=== PATIENT | male | born 1950 | race Caucasian/White ===

== ENCOUNTER 2018-05-07 11:05 | Inpatient (IN) | payer MEDICARE, MEDICAID ==
[2018-05-07] MEDS ORDERED: Sodium Chloride 0.9% 10 ML Syringe FLUSH PRN (11:10)
[2018-05-07] MEDS ORDERED: Sodium Chloride 0.9% 1,000 ML IV SCH (11:30)
--- NOTE | 2018-05-07 15:07 | PCM.HP ---
H&P History of Present Illness - General Date of Service: 05/07/18 Admit Problem/Dx: Admission Diagnosis/Problem Admission Diagnosis/Problem Urinary tract infection HTN, uncontrolled Headache Visual blurring Source of Information: Patient, Family, Old Records, Provider, RN Notes Reviewed (Home Health RN) History Limitations: Reports: No Limitations - History of Present Illness Initial Comments - Free Text/Narative: Patient has been experiencing increasingly frequent and symptomatic UTI's (his symptoms have always been headache and a general sense of malaise), along with headache, extreme fatigue and visual blurring. The last few weeks his blood pressures have been increasingly difficult to try to control, and even with multiple medication adjustments BP has remained out of desired range. Onset of Symptoms: Reports: Gradual Duration of Symptoms: Reports: Week(s):, Getting Worse Location: Reports: Head (headache and visual blurring ), Generalized (extreme fatigue) Quality: Reports: Ache (headache) Severity: Moderate Improves with: Reports: Medication (regarding the BP) Worsens with: Reports: None Context: Reports: Other (quadriplegia, neurogenic bladder) Associated Symptoms: Reports: Headaches, Malaise, Weakness - Related Data Allergies/Adverse Reactions: Allergies Allergy/AdvReac Type Severity Reaction Status Date / Time azithromycin [From Zithromax] Allergy Hives Verified 10/06/15 16:19 bisacodyl Allergy Hives Verified 10/06/15 16:19 [From Dulcolax (bisacodyl)] Home Medications: Home Meds Ascorbic Acid [Vitamin C] 1,000 mg PO QID 04/21/14 [History] Gabapentin 100 mg PO BEDTIME 04/21/14 [History] LORazepam [Ativan] 1 mg PO BEDTIME PRN 04/21/14 [History] Methenamine Hippurate 1 gm PO BID 04/21/14 [History] Sodium Chloride 1,000 mg PO QID 04/21/14 [History] Triamcinolone Acetonide [Triamcinolone Acetonide 0.5%] 1 applic TOP BID PRN 12/30 [History] metFORMIN [Glucophage] 850 mg PO BID 04/21/14 [History] Acetaminophen 650 mg PO Q6HR PRN 10/13/14 [History] Famotidine [Pepcid] 20 mg PO 1700 12/11/14 [History] Multivitamin [Multivitamins] 1 tab PO DAILY 12/11/14 [History] Baclofen [Baclofen] 20 mg PO QID 12/30/14 [Rx] Calcium Carbonate [Tums] 2 tab PO ASDIRECTED PRN 01/13/15 [History] [place] Tar [Thera-Gel] 1 applic TOP Q48H 01/13/15 [History] Furosemide [Lasix] 20 mg PO DAILY #30 tab 01/17/15 [Rx] Potassium Chloride [Klor-Con 10] 20 meq PO TID@0800,1200,1800 tab.er 01/18/15 [ Rx] Nystatin [Nystatin Crm] 1 applic TOP TID PRN 09/29/15 [History] Carbamide Peroxide [Debrox 6.5% Otic Soln] 1 ml EARLF BID@0800,2000 bottle [Rx] Heparin Sodium [Heparin Lock Flush] 500 units FLUSH ASDIRECTED PRN #60 syringe 10/03/15 [Rx] Polyvinyl Alcohol [LiquiTears 1.4% Ophth Soln] 3 drop EYEBOTH Q1H PRN #1 bottle 10/03/15 [Rx] Sodium Chloride 0.9% [Saline Flush] 10 ml FLUSH BID syringe 10/03/15 [Rx] Lisinopril [Prinivil] 10 mg PO Q12HR #60 tablet 10/13/15 [Rx] Midodrine 5 mg PO DAILY@1200 #30 tablet 10/13/15 [Rx] Temazepam 15 mg PO BEDTIME PRN #30 capsule 10/13/15 [Rx] Past Medical History HEENT History: Reports: None Cardiovascular History: Reports: Hypertension Respiratory History: Reports: None Gastrointestinal History: Reports: Other (See Below) Other Gastrointestinal History: manual bowel removal qod Genitourinary History: Reports: Neurogenic Bladder Musculoskeletal History: Reports: Other (See Below) Other Musculoskeletal History: quadraplegic- see MD notes Neurological History: Reports: Other (See Below) Other Neuro History: quadraplegic see MD notes Psychiatric History: Reports: None Endocrine/Metabolic History: Reports: Diabetes, Type II Hematologic History: Reports: Idiopathic Thrombocytopenia Dermatologic History: Reports: Other (See Below) Other Dermatologic History: multiple problems with dry skin/rashes - Infectious Disease History Infectious Disease History: Reports: C-Difficile, MRSA Social & Family History - Family History Family Medical History: Noncontributory - Tobacco Use Smoking Status *Q: Never Smoker Tobacco Use Within Last Twelve Months: No - Caffeine Use Caffeine Use: Reports: None - Alcohol Use Alcohol Use History: No - Recreational Drug Use Recreational Drug Use: No - Living Situation & Occupation Living situation: Reports: with Spouse Occupation: Disabled H&P Review of Systems - Review of Systems: Review Of Systems: See Below General: Reports: Fatigue HEENT: Reports: Headaches, Visual Changes (blurring, R > L) Pulmonary: Reports: No Symptoms Cardiovascular: Reports: No Symptoms Gastrointestinal: Reports: No Symptoms Genitourinary: Reports: Other (excess granulation tissue at the suprapubic catheter insertion site) Musculoskeletal: Reports: Shoulder Pain (c/o increasingly constant L shoulder pain) Skin: Reports: Wound (h/o multiple pressure ulcers), Other (chronic skin changes from immobility) Psychiatric: Reports: No Symptoms Neurological: Reports: No Symptoms Hematologic/Lymphatic: Reports: No Symptoms Immunologic: Reports: No Symptoms Exam - Exam Exam: See Below - Exam Quality Assessment: Urinary Catheter (suprapubic) General: Alert, Oriented, 4 HEENT: EOMI, Hearing Intact, Mucosa Moist & Kiana, Pupils Reactive Neck: Supple (for patient), Trachea Midline, Other (no tenderness to palpation) Lungs: Clear to Auscultation, Normal Respiratory Effort Cardiovascular: Regular Rate, Regular Rhythm, Systolic Murmur GI/Abdominal Exam: Normal Bowel Sounds, Soft (Male) Exam: Other (no drainage at tip of penis (recent culture MRSA+ and treated with topical Gent); suprapubic catheter insertion site does have the excess granulation tissue, draining urine to gravity) Rectal (Males) Exam: Deferred Back Exam: Other (quadriplegic at the C5-6 level) Extremities: Other (extreme muscle wasting in LE, some limited use of UE R > L) Skin: Warm, Dry, Intact, Other (skin is fragile but no current open areas or ulcerations. Areas of dermatitis on BLE.) Neurological: Cranial Nerves Intact, Other (quadriplegia with some limited use of BUE, R > L) Neuro Extensive - Mental Status: Alert, Oriented x3, Normal Mood/Affect, Normal Cognition, Memory Intact Neuro Extensive - Motor, Sensory, Reflexes: Other (Quadriplegia since February 09, 1980) Psychiatric: Alert, Normal Affect, Normal Mood - Patient Data Result Diagrams: 05/07/18 17:30 05/07/18 17:30 - Problem List (1) Murmur, cardiac SNOMED Code(s): 54099603 ICD Code: R01.1 - CARDIAC MURMUR, UNSPECIFIED Status: Acute Priority: Medium Current Visit: Yes Onset Date: Unknown Problem Details: Not previously documented (2) Fatigue SNOMED Code(s): 42411328 ICD Code: R53.83 - OTHER FATIGUE Status: Acute Priority: Medium Current Visit: Yes Problem Details: Extreme fatigue past couple months. Qualifiers: Fatigue type: chronic, unspecified Qualified Code(s): R53.82 - Chronic fatigue, unspecified (3) Headache SNOMED Code(s): 83759064 ICD Code: R51 - HEADACHE Status: Chronic Priority: Medium Current Visit : Yes Onset Date: Unknown Problem Details: h/o BORJA associated with recurrent UTI's but worsening. 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 Problem List Initiated/Reviewed/Updated: Yes Orders Last 24hrs: Active Orders 24 hr Category Date Time Status Patient Status [ADT] Routine ADT 05/07/18 11:10 Active Communication Order [RC] PER UNIT ROUTINE Care 05/07/18 12:44 Active Communication Order [RC] PER UNIT ROUTINE Care 05/07/18 12:50 Active Communication Order [RC] ROUTINE Care 05/07/18 11:17 Active Communication Order [RC] ROUTINE Care 05/07/18 13:00 Active Height and Weight [RC] UPON Care 05/07/18 11:10 Active Intake and Output [RC] QSHIFT Care 05/07/18 11:13 Active Oxygen Therapy [RC] PRN Care 05/07/18 11:10 Active Peripheral IV Care [RC] . DIRECTED Care 05/07/18 11:16 Active VTE/DVT Education [RC] PER UNIT ROUTINE Care 05/07/18 11:10 Active Vital Signs [RC] Q4H Care 05/07/18 11:10 Active Consult to Pharmacy [CONS] Routine Cons 05/07/18 12:47 Active PT Evaluation and Treatment [CONS] Routine Cons 05/07/18 12:48 Active Regular Diet [DIET] Diet 05/07/18 Dinner Active Abdomen Pelvis w Cont [CT] Routine Exams 05/07/18 13:13 Ordered Chest 2V [CR] Routine Exams 05/07/18 13:31 Ordered Chest w Cont [CT] Routine Exams 05/07/18 13:17 Ordered Head wo Cont [CT] Routine Exams 05/07/18 13:11 Ordered C-REACTIVE PROTEIN [CHEM] AM Lab 05/08/18 05:11 Ordered C-REACTIVE PROTEIN [CHEM] AM Lab 05/09/18 05:11 Ordered C-REACTIVE PROTEIN [CHEM] AM Lab 05/10/18 05:11 Ordered C-REACTIVE PROTEIN [CHEM] Routine Lab 05/07/18 11:10 Ordered CBC WITH AUTO DIFF [HEME] AM Lab 05/08/18 05:11 Ordered CBC WITH AUTO DIFF [HEME] AM Lab 05/09/18 05:11 Ordered CBC WITH AUTO DIFF [HEME] AM Lab 05/10/18 05:11 Ordered CBC WITH AUTO DIFF [HEME] Routine Lab 05/07/18 11:10 Ordered COMPREHENSIVE METABOLIC PN,CMP [CHEM] AM Lab 05/08/18 05:11 Ordered COMPREHENSIVE METABOLIC PN,CMP [CHEM] AM Lab 05/09/18 05:11 Ordered COMPREHENSIVE METABOLIC PN,CMP [CHEM] AM Lab 05/10/18 05:11 Ordered COMPREHENSIVE METABOLIC PN,CMP [CHEM] Routine Lab 05/07/18 11:10 Ordered CULTURE BLOOD [BC] Stat Lab 05/07/18 11:16 Ordered CULTURE BLOOD [BC] Stat Lab 05/07/18 11:16 Ordered MAGNESIUM [CHEM] Routine Lab 05/07/18 11:10 Ordered Sodium Chloride 0.9% [Normal Saline] 1,000 ml Med 05/07/18 11:30 Pending IV ASDIRECTED Sodium Chloride 0.9% [Saline Flush] Med 05/07/18 11:10 Pending 10 ml FLUSH ASDIRECTED PRN Vancomycin 1 gm Med 05/07/18 12:45 Pending Sodium Chloride 0.9% [Normal Saline] 250 ml IV Q12H Vancomycin Pharmacy to Dose [Pharmacy to Dose - Med 05/07/18 15:00 Pending Vancomycin] 1 dose .XX ASDIRECTED Air Mattress [Pressure Reduction Mattress] [OM.PC] Oth 05/07/18 11:16 Ordered Routine Antiembolic Hose [OM.PC] Per Unit Routine Ot 05/07/18 11:14 Ordered Blood Culture x2 Reflex Set [OM.PC] Stat Ot 05/07/18 11:10 Ordered Peripheral IV Insertion Adult [OM.PC] Routine Oth 05/07/18 11:10 Ordered Resuscitation Status Routine Resus Stat 05/07/18 11:10 Ordered Medication Orders Sodium Chloride (Normal Saline) 1,000 mls @ 100 mls/hr IV ASDIRECTED LAURIE Vancomycin HCl 1 gm/ Sodium (Chloride) 250 mls @ 165 mls/hr IV Q12H LAURIE Sodium Chloride (Saline Flush) 10 ml FLUSH ASDIRECTED PRN PRN Reason: Keep Vein Open Vancomycin HCl (Pharmacy To Dose - Vancomycin) 1 dose .XX ASDIRECTED [facility] Assessment/Plan Comment:: 05-07-18 Chidi Nagy PA-C Admitting to IP status with increasing concern for recurrent UTI, headache, extreme fatigue, blurred vision and increasingly difficult to control HTN. Most recent urine culture positive for Enterococcus species, sensitive to Vancomycin. Patient and his are aware of the risk of C. diff. posed by antibiotic therapy but the decision has been made to treat because his headaches and general malaise and sense of well-being are not tolerable (these have always been his symptoms of UTI in the past). Antihypertensive medications have been repeatedly adjusted over the last couple weeks without complete success. Vancomycin 1 gram Q12H ordered for the UTI. Will run NS at 100 ml/h. Patient has a long h/o hyponatremia. All labs will be followed. TSH ordered for the am d/t this extreme fatigue. CT scans of the head, chest and abdomen/pelvis ordered to rule out anything like a pheochromocytoma or other tumor. Echocardiogram and bilateral carotid ultrasound ordered for tomorrow morning. PT consult ordered to evaluate and treat for skin protection. Dr. Yahaira Israel was consulted prior to this admission. This very complex patient does require IP admission, with possible SWB stay after he can leave acute status.
[2018-05-07] MEDS ORDERED: Iopamidol 612 MG/ML 100 ML Bottle IVPUSH ONE (16:28)
[2018-05-07 17:52] LABS: CHLORIDE,CL 97 mmol/L (98-107); SODIUM,NA 136 mmol/L (136-145)
[2018-05-07] MEDS: Sodium Chloride 0.9% 1,000 ML IV SCH (18:30)
[2018-05-07] MEDS ORDERED: LORazepam 1 MG Tab PO PRN (20:27)
[2018-05-07] MEDS ORDERED: Nystatin Crm 30 GM Tube TOP PRN (20:27)
[2018-05-07] MEDS ORDERED: Acetaminophen 325 MG Tab PO PRN (20:27)
[2018-05-07] MEDS: Magnesium Oxide 400 MG Tab PO SCH (20:27)
[2018-05-07] MEDS ORDERED: Temazepam 15 MG Cap PO PRN (20:27)
[2018-05-07] MEDS ORDERED: Triamcinolone Acetonide 0.5% Crm 15 GM Tube TOP PRN (20:27)
[2018-05-07] MEDS ORDERED: Coal Tar Shampoo 251 ML Bottle TOP PRN (20:27)
[2018-05-07] MEDS ORDERED: Polyvinyl Alcohol 1.4% Ophth Soln 15 ML Bottle EYEBOTH PRN (20:27)
[2018-05-07] MEDS: Baclofen 10 MG Tab PO SCH (22:00)
[2018-05-07] MEDS: guanFACINE 1 MG Tab PO SCH (22:01)
[2018-05-07] MEDS: Lisinopril 20 MG Tab PO SCH (22:01)
[2018-05-07] MEDS: Gabapentin 100 MG Cap PO SCH (22:02)
[2018-05-07] MEDS: Ascorbic Acid 500 MG Tab PO SCH (22:02)
[2018-05-07] MEDS: Calcium Polycarbophil 625 MG Tab PO SCH (22:02)
[2018-05-07] MEDS: Gentamicin 0.1% Crm 15 GM Tube TOP SCH (22:03)
[2018-05-08] MEDS: Docusate Sodium 100 MG Cap PO SCH ×2 (07:40→17:45)
[2018-05-08] MEDS: Gentamicin 0.1% Crm 15 GM Tube TOP SCH ×2 (07:41→20:02)
[2018-05-08] MEDS: Multivitamin Tab PO SCH (07:41)
[2018-05-08] MEDS: Potassium Chloride 10 MEQ Tab.ER PO SCH ×3 (07:41→17:45)
[2018-05-08] MEDS: Furosemide 20 MG Tab PO SCH ×3 (07:42→17:46)
[2018-05-08] MEDS: Baclofen 10 MG Tab PO SCH ×4 (07:42→20:00)
[2018-05-08] MEDS: Sodium Chloride 1 GM Tab PO SCH ×3 (07:51→17:45)
[2018-05-08] MEDS: Ascorbic Acid 500 MG Tab PO SCH ×4 (07:52→20:01)
[2018-05-08 07:53] LABS: CHLORIDE,CL 99 mmol/L (98-107); SODIUM,NA 135 mmol/L (136-145)
[2018-05-08] MEDS: Magnesium Oxide 400 MG Tab PO SCH ×2 (07:54→17:46)
[2018-05-08] MEDS ORDERED: LUTEIN 20 MG PO SCH (08:00)
[2018-05-08] MEDS ORDERED: Pantoprazole 40 MG Tab.CR PO SCH (08:00)
[2018-05-08] MEDS: Sodium Chloride 0.9% 1,000 ML IV SCH ×2 (08:50→19:55)
[2018-05-08] MEDS: guanFACINE 1 MG Tab PO SCH ×2 (10:25→20:01)
[2018-05-08] MEDS: Lisinopril 20 MG Tab PO SCH ×2 (10:25→20:01)
[2018-05-08] MEDS ORDERED: Aluminum Hydroxide/Magnesium Hydroxide/Simethicone Susp 30 ML Cup PO PRN (16:30)
[2018-05-08] MEDS: Calcium Carbonate 750 MG Tab.Chew PO PRN (17:47)
[2018-05-08] MEDS: Famotidine 20 MG Tab PO SCH (17:47)
[2018-05-08] MEDS: Gabapentin 100 MG Cap PO SCH (20:00)
[2018-05-08] MEDS: Calcium Polycarbophil 625 MG Tab PO SCH (20:00)
--- NOTE | 2018-05-08 23:01 | PCM.PN ---
- General Info Date of Service: 05/08/18 Admission Dx/Problem (Free Text): Admission Diagnosis/Problem Admission Diagnosis/Problem Urinary tract infection HTN, uncontrolled Headache Visual blurring Functional Status: Reports: Tolerating Diet - Review of Systems HEENT: Reports: Headaches, Other (decreased vision right eye) Pulmonary: Reports: No Symptoms Cardiovascular: Reports: No Symptoms Gastrointestinal: Reports: No Symptoms Genitourinary: Reports: Retention Musculoskeletal: Reports: Neck Pain, Shoulder Pain (left), Other (left costochondral pain) Skin: Reports: Dryness, Other (redness right lower extremity) Neurological: Reports: Pre-Existing Deficit Psychiatric: Reports: No Symptoms - Patient Data Vitals - Most Recent: Last Vital Signs Temp 97.9 F 05/08/18 19:05 Pulse 59 L 05/08/18 19:05 Resp 12 05/08/18 15:34 BP 167/78 H 05/08/18 20:01 Pulse Ox 96 05/08/18 19:05 Weight - Most Recent: 233 lb 8 oz I&O - Last 24 Hours: Intake & Output 05/08/18 05/08/18 05/08/18 06:59 14:59 22:59 Intake Total 1890 2909 Output Total 1000 1650 1500 Balance -1149 652 [id number] Lab Results Last 24 Hours: Laboratory Results - last 24 hr 05/08/18 05/08/18 05/08/18 Range/Units 06:45 06:45 06:45 WBC 4.5 (4.0-10.2) K/uL RBC 4.18 L (4.33-5.41) M/uL Hgb 12.0 L (13.1-16.8) g/dL Hct 35.4 L (39.0-49.0) % MCV 84.7 (84.0-98.0) fL MCH 28.7 (28.2-33.3) pg MCHC 33.9 (31.7-36.0) g/dL RDW 17.7 H (11.2-14.1) % Plt Count 50 L (150-350) K/uL Neut % (Auto) 75.1 (45.0-80.0) % Lymph % (Auto) 10.5 (10.0-50.0) % [place] % (Auto) 10.9 (2.0-14.0) % Eos % (Auto) 3.3 (0.0-5.0) % Baso % (Auto) 0.2 (0.0-2.0) % Neut # (Auto) 3.37 (1.40-7.00) K/uL Lymph # (Auto) 0.47 L (0.50-3.50) K/uL [place] # (Auto) 0.49 (0.00-1.00) K/uL Eos # (Auto) 0.15 (0.00-0.50) K/uL Baso # (Auto) 0.01 (0.00-0.20) K/uL PT 11.0 (9.8-11.7) SEC INR 1.0 APTT 27.9 (22.1-29.8) SEC Sodium 135 L (136-145) mmol/L Potassium 4.2 (3.5-5.1) mmol/L Chloride 99 (98-107) mmol/L Carbon Dioxide 28.7 (21.0-32.0) mmol/L BUN 15 (7-18) mg/dL Creatinine 0.24 L (0.51-1.17) mg/dL Est Cr Clr Drug Dosing 371.71 mL/min Estimated GFR (MDRD) > 60 mL/min Glucose 191 H (74-106) mg/dL POC Glucose (65-110) mg/dl Hemoglobin A1c (4.3-5.7) % Lactic Acid (0.4-2.0) mmol/L Calcium 8.0 L (8.5-10.1) mg/dL Total Bilirubin 0.7 (0.2-1.0) mg/dL AST 20 (15-37) U/L ALT 39 (12-78) U/L Alkaline Phosphatase 68 (46-116) IU/L Creatine Kinase 19 L (26-308) U/L C-Reactive Protein 1.9 H (<=0.9) mg/dL Total Protein 7.1 (6.4-8.2) g/dL Albumin 3.1 L (3.4-5.0) g/dL TSH, Ultra Sensitive 1.887 (0.358-3.740) mIU/mL 05/08/18 05/08/18 05/08/18 Range/Units 06:45 06:45 07:33 WBC (4.0-10.2) K/uL RBC (4.33-5.41) M/uL Hgb (13.1-16.8) g/dL Hct (39.0-49.0) % MCV (84.0-98.0) fL MCH (28.2-33.3) pg MCHC (31.7-36.0) g/dL RDW (11.2-14.1) % Plt Count (150-350) K/uL Neut % (Auto) (45.0-80.0) % Lymph % (Auto) (10.0-50.0) % [place] % (Auto) (2.0-14.0) % Eos % (Auto) (0.0-5.0) % Baso % (Auto) (0.0-2.0) % Neut # (Auto) (1.40-7.00) K/uL Lymph # (Auto) (0.50-3.50) K/uL [place] # (Auto) (0.00-1.00) K/uL Eos # (Auto) (0.00-0.50) K/uL Baso # (Auto) (0.00-0.20) K/uL PT (9.8-11.7) SEC INR APTT (22.1-29.8) SEC Sodium (136-145) mmol/L Potassium (3.5-5.1) mmol/L Chloride (98-107) mmol/L Carbon Dioxide (21.0-32.0) mmol/L BUN (7-18) mg/dL Creatinine (0.51-1.17) mg/dL Est Cr Clr Drug Dosing mL/min Estimated GFR (MDRD) mL/min Glucose (74-106) mg/dL POC Glucose 190 H (65-110) mg/dl Hemoglobin A1c 5.8 H (4.3-5.7) % Lactic Acid 2.0 (0.4-2.0) mmol/L Calcium (8.5-10.1) mg/dL Total Bilirubin (0.2-1.0) mg/dL AST (15-37) U/L ALT (12-78) U/L Alkaline Phosphatase (46-116) IU/L Creatine Kinase (26-308) U/L C-Reactive Protein (<=0.9) mg/dL Total Protein (6.4-8.2) g/dL Albumin (3.4-5.0) g/dL TSH, Ultra Sensitive (0.358-3.740) mIU/mL Sadi Results Last 24 Hours: Microbiology 05/07/18 18:07 Aerobic Blood Culture - Preliminary Blood - Venous - Lab Draw NO GROWTH AFTER 1 DAY Anaerobic Blood Culture - Preliminary NO GROWTH AFTER 1 DAY 05/07/18 17:30 Aerobic Blood Culture - Preliminary Blood - Venous NO GROWTH AFTER 1 DAY Anaerobic Blood Culture - Preliminary NO GROWTH AFTER 1 DAY Med Orders - Current: Current Medications Acetaminophen (Tylenol) 650 mg PO Q6HR PRN PRN Reason: Pain Al Hydroxide/Mg Hydroxide (Mag-Al Plus) 30 ml PO Q4H PRN PRN Reason: GI upset Artificial Tears (Liquitears 1.4% Ophth Soln) 0 ml EYEBOTH Q1H PRN PRN Reason: Dry Eyes Ascorbic Acid (Vitamin C) 1,000 mg PO QID [facility] Last Admin: 05/08/18 20:01 Dose: 1,000 mg Baclofen (Lioresal) 20 mg PO QID [facility] Last Admin: 05/08/18 20:00 Dose: 20 mg Calcium Carbonate/Glycine (Tums Extra Strength) 750 mg PO Q2HR PRN PRN Reason: Indigestion Last Admin: 05/08/18 17:47 Dose: 750 mg [place] Tar (Thera-Gel) 0 ml TOP ASDIRECTED PRN PRN Reason: dry skin Famotidine (Pepcid) 20 mg PO QPM [facility] Last Admin: 05/08/18 17:47 Dose: 20 mg Furosemide (Lasix) 20 mg PO TID [facility] Last Admin: 05/08/18 17:46 Dose: 20 mg Gabapentin (Neurontin) 100 mg PO BEDTIME [facility] Last Admin: 05/08/18 20:00 Dose: 100 mg Gentamicin Sulfate (Gentamicin 0.1%) 0 gm TOP Q12HR [facility] Last Admin: 05/08/18 20:02 Dose: 1 applic Guanfacine HCl (Guanfacine) 1 mg PO QAM [facility] Last Admin: 05/08/18 10:25 Dose: Not Given Guanfacine HCl (Guanfacine) 2 mg PO BEDTIME [facility] Last Admin: 05/08/18 20:01 Dose: 2 mg Vancomycin HCl 1 gm/ Sodium (Chloride) 250 mls @ 165 mls/hr IV Q12H [facility] Last Admin: 05/08/18 17:43 Dose: 165 mls/hr Sodium Chloride (Normal Saline) 1,000 mls @ 100 mls/hr IV ASDIRECTED [facility] Last Admin: 05/08/18 19:55 Dose: 100 mls/hr Lisinopril (Prinivil) 20 mg PO Q12HR [facility] Last Admin: 05/08/18 20:01 Dose: 20 mg Lorazepam (Ativan) 1 mg PO BEDTIME PRN PRN Reason: Insomnia Metformin HCl (Glucophage) 850 mg PO BIDMEALS [facility] Multivitamins/Minerals/Vitamin C (Tab-A-Sara) 1 tab PO DAILY [facility] Last Admin: 05/08/18 07:41 Dose: 1 tab Nystatin (Nystatin Crm) 0 gm TOP TID PRN PRN Reason: Rash Potassium Chloride (Klor-Con 10) 20 meq PO TID@0800,1200,1800 [facility] Last Admin: 05/08/18 17:45 Dose: 20 meq Sodium Chloride (Saline Flush) 10 ml FLUSH ASDIRECTED PRN PRN Reason: Keep Vein Open Last Admin: 05/08/18 10:53 Dose: 10 ml Sodium Chloride (Sodium Chloride) 1 gm PO TID [facility] Last Admin: 05/08/18 17:45 Dose: 1 gm Triamcinolone Acetonide (Triamcinolone Acetonide 0.5%) 0 gm TOP BID PRN PRN Reason: Rash Vancomycin HCl (Pharmacy To Dose - Vancomycin) 1 dose .XX ASDIRECTED [facility] Discontinued Medications Calcium Polycarbophil (Fibercon) 1,250 mg PO BEDTIME [facility] Last Admin: 05/08/18 20:00 Dose: 1,250 mg Docusate Sodium (Colace) 100 mg PO BID [facility] Last Admin: 05/08/18 17:45 Dose: 100 mg Iopamidol (Isovue-300 (61%)) 100 ml IVPUSH ONETIME ONE Stop: 05/07/18 16:29 Last Admin: 05/07/18 19:54 Dose: 100 ml Magnesium Oxide (Magnesium Oxide) 400 mg PO BID [facility] Last Admin: 05/08/18 17:46 Dose: 400 mg Lutein [Lutein] 20 (Mg)) 20 mg PO DAILY [facility] Last Admin: 05/08/18 15:38 Dose: Not Given Pantoprazole Sodium (Protonix) 40 mg PO DAILY [facility] Last Admin: 05/08/18 07:42 Dose: 40 mg Temazepam (Restoril) 15 mg PO BEDTIME PRN PRN Reason: Insomnia - Exam Quality Assessment: Central Line/PICC, Urine Catheter (supra-pubic) General: Alert, Cooperative, No Acute Distress HEENT: Mucous Membr. Moist/[place] Neck: Trachea Midline, No JVD, Other (pain left trapezius) Lungs: Normal Respiratory Effort, Decreased Breath Sounds, Other (pain left costochondral junction) Cardiovascular: Irregular Rhythm GI/Abdominal Exam: Soft, Non-Tender (Male) Exam: Deferred Back Exam: Decreased Range of Motion, Other (pain left scapula) Extremities: No Pedal Edema Skin: Warm, Dry, Intact, Rash Neurological: Other (pre-existing deficit) Psy/Mental Status: Alert, Normal Affect, Normal Mood, Anxious (at times) - Problem List & Annotations (1) Blurred vision SNOMED Code(s): 466718496 Code(s): H53.8 - OTHER VISUAL DISTURBANCES Status: Acute Priority: Medium Current Visit: Yes Onset Date: Unknown Annotation/Comment:: Did have Optometry evaluation in the home which found lb cataracts, and "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 (2) Fatigue SNOMED Code(s): 70590962 Code(s): R53.83 - OTHER FATIGUE Status: Acute Priority: Medium Current Visit: Yes Qualifiers: Fatigue type: chronic, unspecified Qualified Code(s): R53.82 - Chronic fatigue, unspecified Annotation/Comment:: Extreme fatigue past couple months. (3) Murmur, cardiac SNOMED Code(s): 37857015 Code(s): R01.1 - CARDIAC MURMUR, UNSPECIFIED Status: Acute Priority: Medium Current Visit: Yes Onset Date: Unknown Annotation/Comment:: Not previously documented (4) Headache SNOMED Code(s): 21855194 Code(s): R51 - HEADACHE Status: Chronic Priority: Medium Current Visit : Yes Onset Date: Unknown Qualifiers: Headache type: other headache syndrome Qualified Code(s): G44.89 - Other headache syndrome Annotation/Comment:: h/o BORJA associated with recurrent UTI's but worsening. (5) Anemia SNOMED Code(s): 936964016 Code(s): D64.9 - ANEMIA, UNSPECIFIED Status: Acute Priority: Medium Current Visit: No (6) Candidiasis SNOMED Code(s): 02556094 Code(s): B37.9 - CANDIDIASIS, UNSPECIFIED Status: Acute Priority: Medium Current Visit: No (7) Constipation SNOMED Code(s): 52955113 Code(s): K59.00 - CONSTIPATION, UNSPECIFIED Status: Acute Current Visit: No (8) Dermatitis SNOMED Code(s): 58655510 Code(s): L30.9 - DERMATITIS, UNSPECIFIED Status: Acute Priority: Medium Current Visit: No (9) Edema extremities SNOMED Code(s): 088752198 Code(s): R60.0 - LOCALIZED EDEMA Status: Acute Current Visit: No (10) UTI (urinary tract infection) SNOMED Code(s): 05819926 Code(s): N39.0 - URINARY TRACT INFECTION, SITE NOT SPECIFIED Status: Acute Priority: High Current Visit: No Qualifiers: Urinary tract infection type: catheter-associated UTI Encounter type: subsequent encounter (11) Acquired thrombocytopenia SNOMED Code(s): 67257907 Code(s): D69.59 - OTHER SECONDARY THROMBOCYTOPENIA Status: Chronic Priority: Medium Current Visit: No (12) Diabetes mellitus type 2 SNOMED Code(s): 84944739 Code(s): E11.9 - TYPE 2 DIABETES MELLITUS WITHOUT COMPLICATIONS Status: Chronic Priority: Medium Current Visit: No (13) HTN, Secondary hypertension SNOMED Code(s): 88296404 Code(s): I15.9 - SECONDARY HYPERTENSION, UNSPECIFIED Status: Chronic Priority: Medium Current Visit: No (14) Hyponatremia SNOMED Code(s): 46924193 Code(s): E87.1 - HYPO-OSMOLALITY AND HYPONATREMIA Status: Chronic Priority: Medium Current Visit: No (15) 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 SNOMED Code(s): 70134285 Code(s): G82.52 - QUADRIPLEGIA, C1-C4 INCOMPLETE Status: Chronic Priority : Medium Current Visit: No (16) Neurogenic bladder SNOMED Code(s): 052494315 Code(s): N31.9 - NEUROMUSCULAR DYSFUNCTION OF BLADDER, UNSPECIFIED Status: Chronic Priority: Medium Current Visit: No (17) Peptic ulcer SNOMED Code(s): 70954981 Code(s): K27.9 - PEPTIC ULC, SITE UNSP, UNSP AC OR CHR, W/O HEMOR OR PERF Status: Chronic Priority: Medium Current Visit: No (18) Quadriplegia following spinal cord injury SNOMED Code(s): 47292619 Code(s): G82.50 - QUADRIPLEGIA, UNSPECIFIED Status: Chronic Priority: High Current Visit: No - Problem List Review Problem List Initiated/Reviewed/Updated: Yes - My Orders Last 24 Hours: My Active Orders 05/08/18 05:11 CATECHOLAMINES,UR.,FREE,24 HR Routine 05/08/18 10:34 Dietary Supplements [RC] BIDAC 05/08/18 16:30 Alum Hydrox/Mag Hydrox/Simeth [Mag-Al Plus] 30 ml PO Q4H PRN 05/09/18 05:11 EKG Documentation Completion [RC] ASDIRECTED PSA DIAGNOSTIC [CHEM] Routine TROPONIN I [CHEM] Routine EKG 12 Lead [EK] Routine 05/09/18 08:00 Notify Provider Consults [RC] ASDIRECTED Consult to Physician [CONS] Routine 05/15/18 12:00 Echo Comp wo Cont [US] Routine - Plan Plan:: 05-07-18 Chidi Nagy PA-C Admitting to IP status with increasing concern for recurrent UTI, headache, extreme fatigue, blurred vision and increasingly difficult to control HTN. Most recent urine culture positive for Enterococcus species, sensitive to Vancomycin. Patient and his are aware of the risk of C. diff. posed by antibiotic therapy but the decision has been made to treat because his headaches and general malaise and sense of well-being are not tolerable (these have always been his symptoms of UTI in the past). Antihypertensive medications have been repeatedly adjusted over the last couple weeks without complete success. Vancomycin 1 gram Q12H ordered for the UTI. Will run NS at 100 ml/h. Patient has a long h/o hyponatremia. All labs will be followed. TSH ordered for the am d/t this extreme fatigue. CT scans of the head, chest and abdomen/pelvis ordered to rule out anything like a pheochromocytoma or other tumor. Echocardiogram and bilateral carotid ultrasound ordered for tomorrow morning. PT consult ordered to evaluate and treat for skin protection. Dr. Yahaira Israel was consulted prior to this admission. This very complex patient does require IP admission, with possible SWB stay after he can leave acute status. 05/08/18 Yahaira Israel MD Maybe feels a little better. Blood pressure still up and down. Reviewed results with him. Possible mass in rectum or maybe inflammation. CEA has been sent. Hemocult ordered. Surgical consult ordered. Colonoscopy done ~6-[address] = chronic sinusitus. Continue IV vancomycin.
[2018-05-09] MEDS: Sodium Chloride 0.9% 1,000 ML IV SCH ×2 (05:51→18:34)
[2018-05-09] MEDS: Potassium Chloride 10 MEQ Tab.ER PO SCH ×3 (08:29→18:33)
[2018-05-09] MEDS: Multivitamin Tab PO SCH (08:30)
[2018-05-09] MEDS: Ascorbic Acid 500 MG Tab PO SCH ×4 (08:30→20:20)
[2018-05-09] MEDS: Lisinopril 20 MG Tab PO SCH ×2 (08:30→20:21)
[2018-05-09] MEDS: Furosemide 20 MG Tab PO SCH ×3 (08:30→18:33)
[2018-05-09] MEDS: Baclofen 10 MG Tab PO SCH ×4 (08:31→20:21)
[2018-05-09] MEDS: guanFACINE 1 MG Tab PO SCH ×2 (08:31→20:20)
[2018-05-09] MEDS: Sodium Chloride 1 GM Tab PO SCH ×3 (08:31→18:33)
[2018-05-09 09:11] LABS: CHLORIDE,CL 99 mmol/L (98-107); SODIUM,NA 133 mmol/L (136-145)
[2018-05-09] MEDS: Gentamicin 0.1% Crm 15 GM Tube TOP SCH ×2 (09:11→20:21)
--- NOTE | 2018-05-09 15:48 | PCM.PN ---
- General Info Date of Service: 05/09/18 Admission Dx/Problem (Free Text): Admission Diagnosis/Problem Admission Diagnosis/Problem Urinary tract infection HTN, uncontrolled Headache Visual blurring Functional Status: Reports: Tolerating Diet - Review of Systems General: Reports: Fatigue HEENT: Reports: No Symptoms Pulmonary: Reports: No Symptoms Cardiovascular: Reports: No Symptoms Gastrointestinal: Reports: No Symptoms Genitourinary: Reports: No Symptoms Musculoskeletal: Reports: Shoulder Pain (some chronic left shoulder pain) Skin: Reports: Dryness, Other (chronic dermatitis BLE, h/o candidiasis) Neurological: Reports: No Symptoms Psychiatric: Reports: No Symptoms - Patient Data Vitals - Most Recent: Last Vital Signs Temp 98 F 05/09/18 15:22 Pulse 56 L 05/09/18 15:22 Resp 18 05/09/18 15:22 BP 153/68 H 05/09/18 15:22 Pulse Ox 97 05/09/18 15:22 Weight - Most Recent: 233 lb 8 oz I&O - Last 24 Hours: Intake & Output 05/09/18 05/09/18 05/09/18 06:59 14:59 22:59 Intake Total 1084 1140 1690 Output Total 3188 061 0121 Balance -516 290 -110 Lab Results Last 24 Hours: Laboratory Results - last 24 hr 05/08/18 05/09/18 05/09/18 Range/Units 06:45 07:03 08:00 WBC (4.0-10.2) K/uL RBC (4.33-5.41) M/uL Hgb (13.1-16.8) g/dL Hct (39.0-49.0) % MCV (84.0-98.0) fL MCH (28.2-33.3) pg MCHC (31.7-36.0) g/dL RDW (11.2-14.1) % Plt Count (150-350) K/uL Neut % (Auto) (45.0-80.0) % Lymph % (Auto) (10.0-50.0) % Ware % (Auto) (2.0-14.0) % Eos % (Auto) (0.0-5.0) % Baso % (Auto) (0.0-2.0) % Neut # (Auto) (1.40-7.00) K/uL Lymph # (Auto) (0.50-3.50) K/uL Ware # (Auto) (0.00-1.00) K/uL Eos # (Auto) (0.00-0.50) K/uL Baso # (Auto) (0.00-0.20) K/uL Sodium (136-145) mmol/L Potassium (3.5-5.1) mmol/L Chloride (98-107) mmol/L Carbon Dioxide (21.0-32.0) mmol/L BUN (7-18) mg/dL Creatinine (0.51-1.17) mg/dL Est Cr Clr Drug Dosing mL/min Estimated GFR (MDRD) mL/min Glucose (74-106) mg/dL POC Glucose 176 H (65-110) mg/dl Lactic Acid (0.4-2.0) mmol/L Calcium (8.5-10.1) mg/dL Magnesium (1.8-2.4) mg/dL Iron (50-175) ug/dL TIBC (250-450) ug/dL % Saturation Ferritin (8-388) ng/mL Total Bilirubin (0.2-1.0) mg/dL AST (15-37) U/L ALT (12-78) U/L Alkaline Phosphatase (46-116) IU/L Troponin I (0.000-0.056) ng/mL C-Reactive Protein (<=0.9) mg/dL Total Protein (6.4-8.2) g/dL Albumin (3.4-5.0) g/dL Carcinoembryonic Ag 1.6 (0.0-3.0) ng/mL Prostate Specific Ag (0.13-4.0) ng/ml Vitamin B12 (193-986) pg/mL Vitamin D 25-Hydroxy (30-100) ng/mL Folate 22.8 (8.6-58.9) ng/mL 05/09/18 05/09/18 05/09/18 Range/Units 08:00 08:10 08:10 WBC 3.5 L (4.0-10.2) K/uL RBC 4.02 L (4.33-5.41) M/uL Hgb 11.5 L (13.1-16.8) g/dL Hct 34.5 L (39.0-49.0) % MCV 85.8 (84.0-98.0) fL MCH 28.6 (28.2-33.3) pg MCHC 33.3 (31.7-36.0) g/dL RDW 18.2 H (11.2-14.1) % Plt Count 44 L* (150-350) K/uL Neut % (Auto) 68.0 (45.0-80.0) % Lymph % (Auto) 16.7 (10.0-50.0) % Ware % (Auto) 11.9 (2.0-14.0) % Eos % (Auto) 2.8 (0.0-5.0) % Baso % (Auto) 0.6 (0.0-2.0) % Neut # (Auto) 2.41 (1.40-7.00) K/uL Lymph # (Auto) 0.59 (0.50-3.50) K/uL Ware # (Auto) 0.42 (0.00-1.00) K/uL Eos # (Auto) 0.10 (0.00-0.50) K/uL Baso # (Auto) 0.02 (0.00-0.20) K/uL Sodium 133 L (136-145) mmol/L Potassium 4.1 (3.5-5.1) mmol/L Chloride 99 (98-107) mmol/L Carbon Dioxide 27.5 (21.0-32.0) mmol/L BUN 9 (7-18) mg/dL Creatinine 0.23 L (0.51-1.17) mg/dL Est Cr Clr Drug Dosing 387.87 mL/min Estimated GFR (MDRD) > 60 mL/min Glucose 253 H (74-106) mg/dL POC Glucose (65-110) mg/dl Lactic Acid (0.4-2.0) mmol/L Calcium 7.8 L (8.5-10.1) mg/dL Magnesium 1.9 (1.8-2.4) mg/dL Iron (50-175) ug/dL TIBC (250-450) ug/dL % Saturation Ferritin (8-388) ng/mL Total Bilirubin 0.8 (0.2-1.0) mg/dL AST 21 (15-37) U/L ALT 38 (12-78) U/L Alkaline Phosphatase 72 (46-116) IU/L Troponin I 0.000 (0.000-0.056) ng/mL C-Reactive Protein 3.4 H (<=0.9) mg/dL Total Protein 7.0 (6.4-8.2) g/dL Albumin 2.9 L (3.4-5.0) g/dL Carcinoembryonic Ag (0.0-3.0) ng/mL Prostate Specific Ag 0.49 (0.13-4.0) ng/ml Vitamin B12 609 (193-986) pg/mL Vitamin D 25-Hydroxy 30.2 (30-100) ng/mL Folate (8.6-58.9) ng/mL 05/09/18 05/09/18 Range/Units 08:10 08:10 WBC (4.0-10.2) K/uL RBC (4.33-5.41) M/uL Hgb (13.1-16.8) g/dL Hct (39.0-49.0) % MCV (84.0-98.0) fL MCH (28.2-33.3) pg MCHC (31.7-36.0) g/dL RDW (11.2-14.1) % Plt Count (150-350) K/uL Neut % (Auto) (45.0-80.0) % Lymph % (Auto) (10.0-50.0) % Ware % (Auto) (2.0-14.0) % Eos % (Auto) (0.0-5.0) % Baso % (Auto) (0.0-2.0) % Neut # (Auto) (1.40-7.00) K/uL Lymph # (Auto) (0.50-3.50) K/uL Ware # (Auto) (0.00-1.00) K/uL Eos # (Auto) (0.00-0.50) K/uL Baso # (Auto) (0.00-0.20) K/uL Sodium (136-145) mmol/L Potassium (3.5-5.1) mmol/L Chloride (98-107) mmol/L Carbon Dioxide (21.0-32.0) mmol/L BUN (7-18) mg/dL Creatinine (0.51-1.17) mg/dL Est Cr Clr Drug Dosing mL/min Estimated GFR (MDRD) mL/min Glucose (74-106) mg/dL POC Glucose (65-110) mg/dl Lactic Acid 2.2 H (0.4-2.0) mmol/L Calcium (8.5-10.1) mg/dL Magnesium (1.8-2.4) mg/dL Iron 53 (50-175) ug/dL TIBC 221 L (250-450) ug/dL % Saturation 23.09514 Ferritin 376 (8-388) ng/mL Total Bilirubin (0.2-1.0) mg/dL AST (15-37) U/L ALT (12-78) U/L Alkaline Phosphatase (46-116) IU/L Troponin I (0.000-0.056) ng/mL C-Reactive Protein (<=0.9) mg/dL Total Protein (6.4-8.2) g/dL Albumin (3.4-5.0) g/dL Carcinoembryonic Ag (0.0-3.0) ng/mL Prostate Specific Ag (0.13-4.0) ng/ml Vitamin B12 (193-986) pg/mL Vitamin D 25-Hydroxy (30-100) ng/mL Folate (8.6-58.9) ng/mL Sadi Results Last 24 Hours: Microbiology 05/09/18 09:30 Stool Occult Blood (SADI) - Final Stool / Feces NEGATIVE OCCULT BLOOD 05/07/18 18:07 Aerobic Blood Culture - Preliminary Blood - Venous - Lab Draw NO GROWTH AFTER 1 DAY Anaerobic Blood Culture - Preliminary NO GROWTH AFTER 1 DAY 05/07/18 17:30 Aerobic Blood Culture - Preliminary Blood - Venous NO GROWTH AFTER 1 DAY Anaerobic Blood Culture - Preliminary NO GROWTH AFTER 1 DAY Med Orders - Current: Current Medications Acetaminophen (Tylenol) 650 mg PO Q6HR PRN PRN Reason: Pain Al Hydroxide/Mg Hydroxide (Mag-Al Plus) 30 ml PO Q4H PRN PRN Reason: GI upset Artificial Tears (Liquitears 1.4% Ophth Soln) 0 ml EYEBOTH Q1H PRN PRN Reason: Dry Eyes Ascorbic Acid (Vitamin C) 1,000 mg PO QID [facility] Last Admin: 05/09/18 15:28 Dose: 1,000 mg Baclofen (Lioresal) 20 mg PO QID [facility] Last Admin: 05/09/18 15:27 Dose: 20 mg Calcium Carbonate/Glycine (Tums Extra Strength) 750 mg PO Q2HR PRN PRN Reason: Indigestion Last Admin: 05/08/18 17:47 Dose: 750 mg Richardson Tar (Thera-Gel) 0 ml TOP ASDIRECTED PRN PRN Reason: dry skin Famotidine (Pepcid) 20 mg PO QPM [facility] Last Admin: 05/08/18 17:47 Dose: 20 mg Furosemide (Lasix) 20 mg PO TID [facility] Last Admin: 05/09/18 11:49 Dose: 20 mg Gabapentin (Neurontin) 100 mg PO BEDTIME [facility] Last Admin: 05/08/18 20:00 Dose: 100 mg Gentamicin Sulfate (Gentamicin 0.1%) 0 gm TOP Q12HR [facility] Last Admin: 05/09/18 09:11 Dose: 1 applic Guanfacine HCl (Guanfacine) 1 mg PO QAM [facility] Last Admin: 05/09/18 08:31 Dose: 1 mg Guanfacine HCl (Guanfacine) 2 mg PO BEDTIME [facility] Last Admin: 05/08/18 20:01 Dose: 2 mg Vancomycin HCl 1 gm/ Sodium (Chloride) 250 mls @ 165 mls/hr IV Q12H [facility] Last Admin: 05/09/18 05:51 Dose: 165 mls/hr Sodium Chloride (Normal Saline) 1,000 mls @ 100 mls/hr IV ASDIRECTED [facility] Last Admin: 05/09/18 05:51 Dose: 100 mls/hr Lisinopril (Prinivil) 20 mg PO Q12HR [facility] Last Admin: 05/09/18 08:30 Dose: 20 mg Lorazepam (Ativan) 1 mg PO BEDTIME PRN PRN Reason: Insomnia Metformin HCl (Glucophage) 850 mg PO BIDMEALS [facility] Multivitamins/Minerals/Vitamin C (Tab-A-Sara) 1 tab PO DAILY [facility] Last Admin: 05/09/18 08:30 Dose: 1 tab Nystatin (Nystatin Crm) 0 gm TOP TID PRN PRN Reason: Rash Last Admin: 05/09/18 09:41 Dose: 1 applic Nystatin (Nystop) 0 gm TOP BID [facility] Nystatin (Nystatin Crm) 0 gm TOP BID [facility] Potassium Chloride (Klor-Con 10) 20 meq PO TID@0800,1200,1800 [facility] Last Admin: 05/09/18 11:48 Dose: 20 meq Sodium Chloride (Saline Flush) 10 ml FLUSH ASDIRECTED PRN PRN Reason: Keep Vein Open Last Admin: 05/08/18 10:53 Dose: 10 ml Sodium Chloride (Sodium Chloride) 1 gm PO TID [facility] Last Admin: 05/09/18 11:50 Dose: 1 gm Triamcinolone Acetonide (Triamcinolone Acetonide 0.5%) 0 gm TOP BID PRN PRN Reason: Rash Vancomycin HCl (Pharmacy To Dose - Vancomycin) 1 dose .XX ASDIRECTED [facility] Discontinued Medications Calcium Polycarbophil (Fibercon) 1,250 mg PO BEDTIME [facility] Last Admin: 05/08/18 20:00 Dose: 1,250 mg Docusate Sodium (Colace) 100 mg PO BID [facility] Last Admin: 05/08/18 17:45 Dose: 100 mg Iopamidol (Isovue-300 (61%)) 100 ml IVPUSH ONETIME ONE Stop: 05/07/18 16:29 Last Admin: 05/07/18 19:54 Dose: 100 ml Magnesium Oxide (Magnesium Oxide) 400 mg PO BID [facility] Last Admin: 05/08/18 17:46 Dose: 400 mg Lutein [Lutein] 20 (Mg)) 20 mg PO DAILY [facility] Last Admin: 05/08/18 15:38 Dose: Not Given Pantoprazole Sodium (Protonix) 40 mg PO DAILY [facility] Last Admin: 05/08/18 07:42 Dose: 40 mg Temazepam (Restoril) 15 mg PO BEDTIME PRN PRN Reason: Insomnia - Exam Quality Assessment: Central Line/PICC ((port)), Urine Catheter (suprapubic ) General: Alert, Oriented HEENT: Pupils Reactive, Mucous Membr. Moist/[place] Neck: Trachea Midline Lungs: Clear to Auscultation Cardiovascular: Regular Rate, Regular Rhythm, Other (occasional ectopic beats heard) GI/Abdominal Exam: Normal Bowel Sounds, Soft (Male) Exam: Other (suprapubic catheter) Back Exam: Normal Inspection Extremities: No Pedal Edema, Other (extreme muscle wasting, fragile skin, some chronic dermatitis) EKG INTERPRETATION EKG Date: 05/09/18 Rhythm: Other (bradycardia with 1st degree AV block and occ. PVC's) Rate (Beats/Min): 54 [place]: Normal P-Wave: Present QRS: Normal (other than occ. PVC's) - Problem List & Annotations (1) Murmur, cardiac SNOMED Code(s): 22053675 Code(s): R01.1 - CARDIAC MURMUR, UNSPECIFIED Status: Acute Priority: Medium Current Visit: Yes Onset Date: Unknown Annotation/Comment:: Not previously documented (2) Fatigue SNOMED Code(s): 25373823 Code(s): R53.83 - OTHER FATIGUE Status: Acute Priority: Medium Current Visit: Yes Qualifiers: Fatigue type: chronic, unspecified Qualified Code(s): R53.82 - Chronic fatigue, unspecified Annotation/Comment:: Extreme fatigue past couple months. (3) Headache SNOMED Code(s): 78204270 Code(s): R51 - HEADACHE Status: Chronic Priority: Medium Current Visit : Yes Onset Date: Unknown Qualifiers: Headache type: other headache syndrome Qualified Code(s): G44.89 - Other headache syndrome Annotation/Comment:: h/o BORJA associated with recurrent UTI's but worsening. 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 - Problem List Review Problem List Initiated/Reviewed/Updated: Yes - My Orders Last 24 Hours: My Active Orders 05/08/18 17:16 Calcium Carbonate [Tums Extra Strength] 750 mg PO Q2HR PRN 05/08/18 18:00 Famotidine [Pepcid] 20 mg PO QPM 05/09/18 15:40 Communication Order [RC] PER UNIT ROUTINE 05/09/18 18:00 Nystatin [Nystatin Crm] See Dose Instructions TOP BID Nystatin [Nystop] See Dose Instructions TOP BID 05/10/18 05:11 C-REACTIVE PROTEIN [CHEM] AM CBC WITH AUTO DIFF [HEME] AM COMPREHENSIVE METABOLIC PN,CMP [CHEM] AM 05/10/18 07:30 metFORMIN [Glucophage] 850 mg PO BIDMEALS - Plan Plan:: 05-07-18 Chidi Nagy PA-C Admitting to IP status with increasing concern for recurrent UTI, headache, extreme fatigue, blurred vision and increasingly difficult to control HTN. Most recent urine culture positive for Enterococcus species, sensitive to Vancomycin. Patient and his are aware of the risk of C. diff. posed by antibiotic therapy but the decision has been made to treat because his headaches and general malaise and sense of well-being are not tolerable (these have always been his symptoms of UTI in the past). Antihypertensive medications have been repeatedly adjusted over the last couple weeks without complete success. Vancomycin 1 gram Q12H ordered for the UTI. Will run NS at 100 ml/h. Patient has a long h/o hyponatremia. All labs will be followed. TSH ordered for the am d/t this extreme fatigue. CT scans of the head, chest and abdomen/pelvis ordered to rule out anything like a pheochromocytoma or other tumor. Echocardiogram and bilateral carotid ultrasound ordered for tomorrow morning. PT consult ordered to evaluate and treat for skin protection. Dr. Yahaira Israel was consulted prior to this admission. This very complex patient does require IP admission, with possible SWB stay after he can leave acute status. 05/08/18 Yahaira Israel MD Maybe feels a little better. Blood pressure still up and down. Reviewed results with him. Possible mass in rectum or maybe inflammation. CEA has been sent. Hemocult ordered. Surgical consult ordered. Colonoscopy done ~6-[address] = chronic sinusitus. Continue IV vancomycin 05-09-18 Chidi Nagy PA-C BP more stabilized. Says feeling "okay", no headache now. CEA returned WNL, d/ w Nader. Hemoccult stool test negative. Dr. Delong will see him tomorrow in consult to consider another colonoscopy. PSA and TSH WNL, troponin negative. EKG found sinus bradycardia in 1st degree AV block and occasional PVC's. Did check to see if the facility had a sheepskin of appropriate size to place under thighs, as in the boots that he wears on the his feet and lower legs, but we do not. Will continue current regimen, and if he continues to improve will consider transfer to B status tomorrow or the next day.
[2018-05-09] MEDS ORDERED: Nystatin Topical Powder 15 GM Bottle TOP SCH (18:00)
[2018-05-09] MEDS ORDERED: Nystatin Crm 30 GM Tube TOP SCH (18:00)
[2018-05-09] MEDS: Famotidine 20 MG Tab PO SCH (18:33)
[2018-05-09] MEDS: Vancomycin 1.5 GM in Sodium Chloride 0.9% 500 ML IV SCH (18:45)
[2018-05-09] MEDS: Gabapentin 100 MG Cap PO SCH (20:20)
[2018-05-09] MEDS: Nystatin Crm 30 GM Tube TOP SCH (20:22)
[2018-05-09] MEDS: Nystatin Topical Powder 15 GM Bottle TOP SCH (20:22)
[2018-05-09] MEDS: Calcium Carbonate 750 MG Tab.Chew PO PRN (22:03)
[2018-05-10] MEDS: Vancomycin 1.5 GM in Sodium Chloride 0.9% 500 ML IV SCH (06:30)
[2018-05-10 07:49] LABS: CHLORIDE,CL 102 mmol/L (98-107); SODIUM,NA 135 mmol/L (136-145)
[2018-05-10] MEDS: Potassium Chloride 10 MEQ Tab.ER PO SCH (07:54)
[2018-05-10] MEDS: Sodium Chloride 1 GM Tab PO SCH (07:55)
[2018-05-10] MEDS: guanFACINE 1 MG Tab PO SCH (07:55)
[2018-05-10] MEDS: Ascorbic Acid 500 MG Tab PO SCH (07:56)
[2018-05-10] MEDS: Lisinopril 20 MG Tab PO SCH (07:57)
[2018-05-10] MEDS: Baclofen 10 MG Tab PO SCH (07:57)
[2018-05-10] MEDS: Furosemide 20 MG Tab PO SCH (07:57)
[2018-05-10] MEDS: Multivitamin Tab PO SCH (07:58)
[2018-05-10] MEDS: Nystatin Topical Powder 15 GM Bottle TOP SCH (07:58)
[2018-05-10] MEDS: Gentamicin 0.1% Crm 15 GM Tube TOP SCH (07:59)
[2018-05-10] MEDS: Nystatin Crm 30 GM Tube TOP SCH (07:59)
[2018-05-10 08:53] VITALS: BP 155/74
[2018-05-10] MEDS ORDERED: Furosemide 20 MG Tab PO ONE (09:29)
--- NOTE | 2018-05-10 09:35 | PCM.PN ---
- General Info Date of Service: 05/10/18 Admission Dx/Problem (Free Text): Admission Diagnosis/Problem Admission Diagnosis/Problem Urinary tract infection HTN, uncontrolled Headache Visual blurring Functional Status: Reports: Tolerating Diet, New Symptoms (increased BLE and scrotum edema overnight, on-call physician DC'd IV fluids) - Review of Systems General: Reports: Fatigue HEENT: Reports: No Symptoms Pulmonary: Reports: No Symptoms Cardiovascular: Reports: No Symptoms Gastrointestinal: Reports: No Symptoms Genitourinary: Reports: No Symptoms Musculoskeletal: Reports: Shoulder Pain (some chronic L shoulder pain) Skin: Reports: Other (had been concerned about integrity of skin BLE with increased edema, this has already improved since IV fluids DC'd) Neurological: Reports: No Symptoms Psychiatric: Reports: No Symptoms - Patient Data Vitals - Most Recent: Last Vital Signs Temp 97.5 F 05/10/18 08:00 Pulse 51 L 05/10/18 08:00 Resp 16 05/10/18 08:00 BP 155/74 H 05/10/18 08:00 Pulse Ox 97 05/10/18 08:00 Weight - Most Recent: 233 lb 8 oz I&O - Last 24 Hours: Intake & Output 05/09/18 05/10/18 05/10/18 22:59 06:59 14:59 Intake Total 3067 500 346 Output Total 3600 1900 Balance -533 -1400 346 Lab Results Last 24 Hours: Laboratory Results - last 24 hr 05/08/18 05/09/18 05/09/18 Range/Units 06:45 08:00 17:50 WBC (4.0-10.2) K/uL RBC (4.33-5.41) M/uL Hgb (13.1-16.8) g/dL Hct (39.0-49.0) % MCV (84.0-98.0) fL MCH (28.2-33.3) pg MCHC (31.7-36.0) g/dL RDW (11.2-14.1) % Plt Count (150-350) K/uL Neut % (Auto) (45.0-80.0) % Lymph % (Auto) (10.0-50.0) % Mason % (Auto) (2.0-14.0) % Eos % (Auto) (0.0-5.0) % Baso % (Auto) (0.0-2.0) % Neut # (Auto) (1.40-7.00) K/uL Lymph # (Auto) (0.50-3.50) K/uL Mason # (Auto) (0.00-1.00) K/uL Eos # (Auto) (0.00-0.50) K/uL Baso # (Auto) (0.00-0.20) K/uL Sodium (136-145) mmol/L Potassium (3.5-5.1) mmol/L Chloride (98-107) mmol/L Carbon Dioxide (21.0-32.0) mmol/L BUN (7-18) mg/dL Creatinine (0.51-1.17) mg/dL Est Cr Clr Drug Dosing mL/min Estimated GFR (MDRD) mL/min Glucose (74-106) mg/dL POC Glucose 243 H (65-110) mg/dl Calcium (8.5-10.1) mg/dL Total Bilirubin (0.2-1.0) mg/dL AST (15-37) U/L ALT (12-78) U/L Alkaline Phosphatase (46-116) IU/L C-Reactive Protein (<=0.9) mg/dL Total Protein (6.4-8.2) g/dL Albumin (3.4-5.0) g/dL Carcinoembryonic Ag 1.6 (0.0-3.0) ng/mL Vitamin D 25-Hydroxy 30.2 (30-100) ng/mL Vancomycin Trough (10-20) ug/mL 05/09/18 05/10/18 05/10/18 Range/Units 17:54 06:30 06:30 WBC 3.7 L (4.0-10.2) K/uL RBC 4.03 L (4.33-5.41) M/uL Hgb 11.6 L (13.1-16.8) g/dL Hct 34.2 L (39.0-49.0) % MCV 84.9 (84.0-98.0) fL MCH 28.8 (28.2-33.3) pg MCHC 33.9 (31.7-36.0) g/dL RDW 18.0 H (11.2-14.1) % Plt Count 44 L* (150-350) K/uL Neut % (Auto) 62.4 (45.0-80.0) % Lymph % (Auto) 20.2 (10.0-50.0) % Mason % (Auto) 13.6 (2.0-14.0) % Eos % (Auto) 3.5 (0.0-5.0) % Baso % (Auto) 0.3 (0.0-2.0) % Neut # (Auto) 2.29 (1.40-7.00) K/uL Lymph # (Auto) 0.74 (0.50-3.50) K/uL Mason # (Auto) 0.50 (0.00-1.00) K/uL Eos # (Auto) 0.13 (0.00-0.50) K/uL Baso # (Auto) 0.01 (0.00-0.20) K/uL Sodium 135 L (136-145) mmol/L Potassium 3.9 (3.5-5.1) mmol/L Chloride 102 (98-107) mmol/L Carbon Dioxide 28.1 (21.0-32.0) mmol/L BUN 11 (7-18) mg/dL Creatinine 0.25 L (0.51-1.17) mg/dL Est Cr Clr Drug Dosing 356.84 mL/min Estimated GFR (MDRD) > 60 mL/min Glucose 213 H (74-106) mg/dL POC Glucose (65-110) mg/dl Calcium 7.8 L (8.5-10.1) mg/dL Total Bilirubin 0.7 (0.2-1.0) mg/dL AST 27 (15-37) U/L ALT 43 (12-78) U/L Alkaline Phosphatase 67 (46-116) IU/L C-Reactive Protein 2.6 H (<=0.9) mg/dL Total Protein 7.1 (6.4-8.2) g/dL Albumin 2.9 L (3.4-5.0) g/dL Carcinoembryonic Ag (0.0-3.0) ng/mL Vitamin D 25-Hydroxy (30-100) ng/mL Vancomycin Trough 7.1 L (10-20) ug/mL 05/10/18 Range/Units 07:22 WBC (4.0-10.2) K/uL RBC (4.33-5.41) M/uL Hgb (13.1-16.8) g/dL Hct (39.0-49.0) % MCV (84.0-98.0) fL MCH (28.2-33.3) pg MCHC (31.7-36.0) g/dL RDW (11.2-14.1) % Plt Count (150-350) K/uL Neut % (Auto) (45.0-80.0) % Lymph % (Auto) (10.0-50.0) % Mason % (Auto) (2.0-14.0) % Eos % (Auto) (0.0-5.0) % Baso % (Auto) (0.0-2.0) % Neut # (Auto) (1.40-7.00) K/uL Lymph # (Auto) (0.50-3.50) K/uL Mason # (Auto) (0.00-1.00) K/uL Eos # (Auto) (0.00-0.50) K/uL Baso # (Auto) (0.00-0.20) K/uL Sodium (136-145) mmol/L Potassium (3.5-5.1) mmol/L Chloride (98-107) mmol/L Carbon Dioxide (21.0-32.0) mmol/L BUN (7-18) mg/dL Creatinine (0.51-1.17) mg/dL Est Cr Clr Drug Dosing mL/min Estimated GFR (MDRD) mL/min Glucose (74-106) mg/dL POC Glucose 196 H (65-110) mg/dl Calcium (8.5-10.1) mg/dL Total Bilirubin (0.2-1.0) mg/dL AST (15-37) U/L ALT (12-78) U/L Alkaline Phosphatase (46-116) IU/L C-Reactive Protein (<=0.9) mg/dL Total Protein (6.4-8.2) g/dL Albumin (3.4-5.0) g/dL Carcinoembryonic Ag (0.0-3.0) ng/mL Vitamin D 25-Hydroxy (30-100) ng/mL Vancomycin Trough (10-20) ug/mL Sadi Results Last 24 Hours: Microbiology 05/07/18 18:07 Aerobic Blood Culture - Preliminary Blood - Venous - Lab Draw NO GROWTH AFTER 2 DAYS Anaerobic Blood Culture - Preliminary NO GROWTH AFTER 2 DAYS 05/07/18 17:30 Aerobic Blood Culture - Preliminary Blood - Venous NO GROWTH AFTER 2 DAYS Anaerobic Blood Culture - Preliminary NO GROWTH AFTER 2 DAYS 05/09/18 09:30 Stool Occult Blood (SADI) - Final Stool / Feces NEGATIVE OCCULT BLOOD Med Orders - Current: Current Medications Acetaminophen (Tylenol) 650 mg PO Q6HR PRN PRN Reason: Pain Al Hydroxide/Mg Hydroxide (Mag-Al Plus) 30 ml PO Q4H PRN PRN Reason: GI upset Artificial Tears (Liquitears 1.4% Ophth Soln) 0 ml EYEBOTH Q1H PRN PRN Reason: Dry Eyes Ascorbic Acid (Vitamin C) 1,000 mg PO QID [facility] Last Admin: 05/10/18 07:56 Dose: 1,000 mg Baclofen (Lioresal) 20 mg PO QID [facility] Last Admin: 05/10/18 07:57 Dose: 20 mg Calcium Carbonate/Glycine (Tums Extra Strength) 750 mg PO Q2HR PRN PRN Reason: Indigestion Last Admin: 05/09/18 22:03 Dose: 750 mg [place] Tar (Thera-Gel) 0 ml TOP ASDIRECTED PRN PRN Reason: dry skin Famotidine (Pepcid) 20 mg PO QPM [facility] Last Admin: 05/09/18 18:33 Dose: 20 mg Furosemide (Lasix) 20 mg PO TID [facility] Last Admin: 05/10/18 07:57 Dose: 20 mg Furosemide (Lasix) 20 mg PO ONETIME ONE Stop: 05/10/18 09:30 Gabapentin (Neurontin) 100 mg PO BEDTIME [facility] Last Admin: 05/09/18 20:20 Dose: 100 mg Gentamicin Sulfate (Gentamicin 0.1%) 0 gm TOP Q12HR [facility] Last Admin: 05/10/18 07:59 Dose: 1 applic Guanfacine HCl (Guanfacine) 1 mg PO QAM [facility] Last Admin: 05/10/18 07:55 Dose: 1 mg Guanfacine HCl (Guanfacine) 2 mg PO BEDTIME [facility] Last Admin: 05/09/18 20:20 Dose: 2 mg Vancomycin HCl 1.5 gm/ Sodium (Chloride) 500 mls @ 220 mls/hr IV Q12H [facility] Last Admin: 05/10/18 06:30 Dose: 220 mls/hr Lisinopril (Prinivil) 20 mg PO Q12HR [facility] Last Admin: 05/10/18 07:57 Dose: 20 mg Lorazepam (Ativan) 1 mg PO BEDTIME PRN PRN Reason: Insomnia Metformin HCl (Glucophage) 850 mg PO BIDMEALS [facility] Last Admin: 05/10/18 07:58 Dose: 850 mg Multivitamins/Minerals/Vitamin C (Tab-A-Sara) 1 tab PO DAILY [facility] Last Admin: 05/10/18 07:58 Dose: 1 tab Nystatin (Nystatin Crm) 0 gm TOP TID PRN PRN Reason: Rash Last Admin: 05/09/18 09:41 Dose: 1 applic Nystatin (Nystatin Crm) 0 gm TOP BID@0800,1999 [facility] Last Admin: 05/10/18 07:59 Dose: 1 applic Nystatin (Nystop) 0 gm TOP BID@08,1999 [facility] Last Admin: 05/10/18 07:58 Dose: 1 applic Potassium Chloride (Klor-Con 10) 20 meq PO TID@0800,1200,1800 [facility] Last Admin: 05/10/18 07:54 Dose: 20 meq Sodium Chloride (Saline Flush) 10 ml FLUSH ASDIRECTED PRN PRN Reason: Keep Vein Open Last Admin: 05/08/18 10:53 Dose: 10 ml Sodium Chloride (Sodium Chloride) 1 gm PO TID [facility] Last Admin: 05/10/18 07:55 Dose: 1 gm Triamcinolone Acetonide (Triamcinolone Acetonide 0.5%) 0 gm TOP BID PRN PRN Reason: Rash Vancomycin HCl (Pharmacy To Dose - Vancomycin) 1 dose .XX ASDIRECTED [facility] Discontinued Medications Calcium Polycarbophil (Fibercon) 1,250 mg PO BEDTIME [facility] Last Admin: 05/08/18 20:00 Dose: 1,250 mg Docusate Sodium (Colace) 100 mg PO BID [facility] Last Admin: 05/08/18 17:45 Dose: 100 mg Vancomycin HCl 1 gm/ Sodium (Chloride) 250 mls @ 165 mls/hr IV Q12H [facility] Last Admin: 05/09/18 18:49 Dose: Not Given Sodium Chloride (Normal Saline) 1,000 mls @ 100 mls/hr IV ASDIRECTED [facility] Last Admin: 05/09/18 18:34 Dose: 100 mls/hr Iopamidol (Isovue-300 (61%)) 100 ml IVPUSH ONETIME ONE Stop: 05/07/18 16:29 Last Admin: 05/07/18 19:54 Dose: 100 ml Magnesium Oxide (Magnesium Oxide) 400 mg PO BID [facility] Last Admin: 05/08/18 17:46 Dose: 400 mg Lutein [Lutein] 20 (Mg)) 20 mg PO DAILY [facility] Last Admin: 05/08/18 15:38 Dose: Not Given Nystatin (Nystop) 0 gm TOP BID [facility] Last Admin: 05/09/18 18:49 Dose: Not Given Nystatin (Nystatin Crm) 0 gm TOP BID [facility] Last Admin: 05/09/18 18:49 Dose: Not Given Pantoprazole Sodium (Protonix) 40 mg PO DAILY [facility] Last Admin: 05/08/18 07:42 Dose: 40 mg Temazepam (Restoril) 15 mg PO BEDTIME PRN PRN Reason: Insomnia - Exam Quality Assessment: Central Line/PICC (port), Urine Catheter (suprapubic) General: Alert, Oriented HEENT: Pupils Reactive, EOMI, Mucous Membr. Moist/[place] Neck: Trachea Midline Lungs: Clear to Auscultation Cardiovascular: Regular Rate, Regular Rhythm, Other (no ectopic beats heard on this exam) GI/Abdominal Exam: Normal Bowel Sounds, Soft, No Organomegaly (Male) Exam: Scrotal Swelling (some increase in chronic scrotal swelling), Other (suprapubic catheter) Back Exam: Normal Inspection (for patient) Extremities: Pedal Edema (minimal now) Skin: Warm, Dry, Intact Neurological: Other (quadriplegia, some use of UE R > L) Psy/Mental Status: Alert, Normal Affect, Normal Mood - Problem List & Annotations (1) Murmur, cardiac SNOMED Code(s): 87346367 Code(s): R01.1 - CARDIAC MURMUR, UNSPECIFIED Status: Acute Priority: Medium Current Visit: Yes Onset Date: Unknown Annotation/Comment:: Not previously documented (2) Fatigue SNOMED Code(s): 35090552 Code(s): R53.83 - OTHER FATIGUE Status: Acute Priority: Medium Current Visit: Yes Qualifiers: Fatigue type: chronic, unspecified Qualified Code(s): R53.82 - Chronic fatigue, unspecified Annotation/Comment:: Extreme fatigue past couple months. (3) Headache SNOMED Code(s): 88979331 Code(s): R51 - HEADACHE Status: Chronic Priority: Medium Current Visit : Yes Onset Date: Unknown Qualifiers: Headache type: other headache syndrome Qualified Code(s): G44.89 - Other headache syndrome Annotation/Comment:: h/o BORJA associated with recurrent UTI's but worsening. 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 - Problem List Review Problem List Initiated/Reviewed/Updated: Yes - My Orders Last 24 Hours: My Active Orders 05/09/18 18:30 Vancomycin 1.5 gm Sodium Chloride 0.9% [Normal Saline] 500 ml IV Q12H 05/09/18 20:00 Nystatin [Nystatin Crm] 0 gm TOP BID@ Nystatin [Nystop] 0 gm TOP BID@00,199905/10/18 07:30 metFORMIN [Glucophage] 850 mg PO BIDMEALS 05/10/18 09:29 Furosemide [Lasix] 20 mg PO ONETIME ONE - Plan Plan:: 05-07-18 Chidi Nagy PA-C Admitting to status with increasing concern for recurrent UTI, headache, extreme fatigue, blurred vision and increasingly difficult to control HTN. Most recent urine culture positive for Enterococcus species, sensitive to Vancomycin. Patient and his are aware of the risk of C. diff. posed by antibiotic therapy but the decision has been made to treat because his headaches and general malaise and sense of well-being are not tolerable (these have always been his symptoms of UTI in the past). Antihypertensive medications have been repeatedly adjusted over the last couple weeks without complete success. Vancomycin 1 gram Q12H ordered for the UTI. Will run NS at 100 ml/h. Patient has a long h/o hyponatremia. All labs will be followed. TSH ordered for the am d/t this extreme fatigue. CT scans of the head, chest and abdomen/pelvis ordered to rule out anything like a pheochromocytoma or other tumor. Echocardiogram and bilateral carotid ultrasound ordered for tomorrow morning. PT consult ordered to evaluate and treat for skin protection. Dr. Yahaira Israel was consulted prior to this admission. This very complex patient does require IP admission, with possible SWB stay after he can leave acute status. 05/08/18 Yahaira Israel MD Maybe feels a little better. Blood pressure still up and down. Reviewed results with him. Possible mass in rectum or maybe inflammation. CEA has been sent. Hemocult ordered. Surgical consult ordered. Colonoscopy done ~6-[address] = chronic sinusitus. Continue IV vancomycin 05-09-18 Chidi Nagy PA-C BP more stabilized. Says feeling "okay", no headache now. CEA returned WNL, d/ w Nader. Hemoccult stool test negative. Dr. Delong will see him tomorrow in consult to consider another colonoscopy. PSA and TSH WNL, troponin negative. EKG found sinus bradycardia in 1st degree AV block and occasional PVC's. Did check to see if the facility had a sheepskin of appropriate size to place under thighs, as in the boots that he wears on the his feet and lower legs, but we do not. Will continue current regimen, and if he continues to improve will consider transfer to SWB status tomorrow or the next day. 05-10-18 Chidi Nagy PA-C BP overall more stabilized, up a little this morning. No headache. IV fluid had been DC'd in the night as BLE were becoming edematous, these are already improved but am giving one additional dose of Lasix 20 mg po now for the little elevation in BP and that increased fluid BLE and scrotum. Dr. Delong will see in consult today. Transferring to SWB status to continue IV antibiotics for UTI, and will continue to monitor BP. The plan is to return home with Lottie when able to be discharged.
== END 2018-05-10 10:20 | disposition swing bed (61) | DRG 698 ==
LOC: UNDOADMIN 11:05 → LL.MS 11:05
PROVIDERS: ADMIT Family Medicine; ATTEND Family Medicine
DX: T83.511A Infection and inflammatory reaction due to indwelling urethral catheter, initial encounter (principal); G82.52 Quadriplegia, C1-C4 incomplete; D69.3 Immune thrombocytopenic purpura; E87.1 Hypo-osmolality and hyponatremia; B95.2 Enterococcus as the cause of diseases classified elsewhere; E11.9 Type 2 diabetes mellitus without complications; I15.9 Secondary hypertension, unspecified; R01.1 Cardiac murmur, unspecified; N31.9 Neuromuscular dysfunction of bladder, unspecified; G44.89 Other headache syndrome; Y84.6 Urinary catheterization as the cause of abnormal reaction of the patient, or of later complication, without mention of misadventure at the time of the procedure; D64.9 Anemia, unspecified; B37.9 Candidiasis, unspecified; K59.00 Constipation, unspecified; H53.8 Other visual disturbances; S14.154S Other incomplete lesion at C4 level of cervical spinal cord, sequela; L30.9 Dermatitis, unspecified; K27.9 Peptic ulcer, site unspecified, unspecified as acute or chronic, without hemorrhage or perforation; I44.0 Atrioventricular block, first degree; J32.9 Chronic sinusitis, unspecified; K62.89 Other specified diseases of anus and rectum; Z87.440 Personal history of urinary (tract) infections; Z88.8 Allergy status to other drugs, medicaments and biological substances; Z79.899 Other long term (current) drug therapy; Z79.84 Long term (current) use of oral hypoglycemic drugs; Z86.14 Personal history of Methicillin resistant Staphylococcus aureus infection
CPT/HCPCS: 36415; 70450; 71045; 71260; 73020-LT; 74177; 80053; 80202; 82272; 82306; 82378; 82384; 82550; 82607; 82728; 82746; 82962; 83036; 83540; 83550; 83605; 83735; 84153; 84443; 84484; 85025; 85610; 85730; 86140; 87040; 93005; 93880; A9270-GY; J3370; J7030; J7040; J7050; Q9967

== ENCOUNTER 2018-05-10 10:13 | Inpatient (IN) | payer MEDICARE, MEDICAID ==
[2018-05-10] MEDS ORDERED: Polyvinyl Alcohol 1.4% Ophth Soln 15 ML Bottle EYEBOTH PRN (10:15)
[2018-05-10] MEDS ORDERED: Triamcinolone Acetonide 0.5% Crm 15 GM Tube TOP PRN (10:15)
[2018-05-10] MEDS ORDERED: Coal Tar Shampoo 251 ML Bottle TOP PRN (10:15)
--- NOTE | 2018-05-10 10:48 | PCM.HP ---
H&P History of Present Illness - General Date of Service: 05/10/18 Admit Problem/Dx: Admission Diagnosis/Problem Admission Diagnosis/Problem Urinary tract infection Source of Information: Patient, Family, Old Records, RN History Limitations: Reports: No Limitations - History of Present Illness Onset of Symptoms: Reports: Gradual Duration of Symptoms: Reports: Week(s): Location: Reports: Head (headache, usually associated with UTI), Generalized ( fatigue, malaise) Severity: Moderate Improves with: Reports: Medication Worsens with: Reports: Other (recurrent infection) Associated Symptoms: Reports: Headaches, Malaise, Other (extreme fatigue) - Related Data Allergies/Adverse Reactions: Allergies Allergy/AdvReac Type Severity Reaction Status Date / Time azithromycin [From Zithromax] Allergy Hives Verified 10/06/15 16:19 bisacodyl Allergy Hives Verified 10/06/15 16:19 [From Dulcolax (bisacodyl)] Home Medications: Home Meds Ascorbic Acid [Vitamin C] 1,000 mg PO QID 04/21/14 [History] Gabapentin 100 mg PO BEDTIME 04/21/14 [History] LORazepam [Ativan] 1 mg PO BEDTIME PRN 04/21/14 [History] Methenamine Hippurate 1 gm PO BID 04/21/14 [History] Sodium Chloride 1,000 mg PO TID 04/21/14 [History] Triamcinolone Acetonide [Triamcinolone Acetonide 0.5%] 1 applic TOP BID PRN 12/30 [History] metFORMIN [Glucophage] 850 mg PO BID 04/21/14 [History] Acetaminophen 650 mg PO Q6HR PRN 10/13/14 [History] Multivitamin [Multivitamins] 1 tab PO DAILY 12/11/14 [History] Calcium Carbonate [Tums] 3 tab PO ASDIRECTED PRN 01/13/15 [History] [place] Tar [Thera-Gel] 1 applic TOP ASDIRECTED PRN 01/13/15 [History] Potassium Chloride [Klor-Con 10] 20 meq PO TID@0800,1200,1800 tab.er 01/18/15 [ Rx] Nystatin [Nystatin Crm] 1 applic TOP TID PRN 09/29/15 [History] Lisinopril [Prinivil] 10 mg PO Q12HR #60 tablet 10/13/15 [Rx] Temazepam 15 mg PO BEDTIME PRN #30 capsule 10/13/15 [Rx] Baclofen 20 mg PO QID 05/07/18 [History] Calcium Polycarbophil 2 tab PO BEDTIME 05/07/18 [History] Docusate Sodium [Colace] 100 mg PO BID 05/07/18 [History] Famotidine [Pepcid] 20 mg PO QPM 05/07/18 [History] Furosemide [Lasix] 20 mg PO TID 05/07/18 [History] Gentamicin [Gentamicin 0.1%] 1 applic TOP Q12HR 05/07/18 [History] Heparin Sodium [Heparin Lock Flush] 500 units IV ASDIRECTED PRN 05/07/18 [ History] Heparin Sodium [Heparin Lock Flush] 500 units IV Q21D 05/07/18 [History] Lutein 20 mg PO DAILY 05/07/18 [History] Pantoprazole Sodium [Protonix] 40 mg PO DAILY 05/07/18 [History] Polyvinyl Alcohol [LiquiTears 1.4% Oph Soln] 1 drop EYEBOTH Q1H PRN 05/07/18 [ History] Sodium Chloride 0.9% [Saline Flush] 20 ml IV ASDIRECTED PRN 05/07/18 [History] Sodium Chloride 0.9% [Saline Flush] 20 ml IV Q21D 05/07/18 [History] guanFACINE 1 mg PO QAM 05/07/18 [History] guanFACINE 2 mg PO BEDTIME 05/07/18 [History] Past Medical History HEENT History: Reports: None Cardiovascular History: Reports: Hypertension Respiratory History: Reports: None Gastrointestinal History: Reports: Other (See Below) Other Gastrointestinal History: manual bowel removal qod Genitourinary History: Reports: Neurogenic Bladder Musculoskeletal History: Reports: Other (See Below) Other Musculoskeletal History: quadraplegic- see MD notes Neurological History: Reports: Other (See Below) Other Neuro History: quadraplegic see MD notes Psychiatric History: Reports: None Endocrine/Metabolic History: Reports: Diabetes, Type II Hematologic History: Reports: Idiopathic Thrombocytopenia Dermatologic History: Reports: Other (See Below) Other Dermatologic History: multiple problems with dry skin/rashes - Infectious Disease History Infectious Disease History: Reports: C-Difficile, MRSA Social & Family History - Family History Family Medical History: Noncontributory - Caffeine Use Caffeine Use: Reports: None - Living Situation & Occupation Living situation: Reports: with Spouse Occupation: Disabled H&P Review of Systems - Review of Systems: Review Of Systems: ROS reveals no pertinent complaints other than HPI. Exam - Exam Exam: See Below - Exam Quality Assessment: Central Line/PICC (port), Urinary Catheter (suprapubic catheter) General: Alert, Oriented, 4 HEENT: Conjunctiva Clear, EACs Clear, EOMI, Hearing Intact, Mucosa Moist & [place] Neck: Trachea Midline Lungs: Clear to Auscultation Cardiovascular: Regular Rate, Regular Rhythm, Other (occasional ectopic beats, 1st degree AV block and PVC's) GI/Abdominal Exam: Normal Bowel Sounds, Soft, Non-Tender (Male) Exam: Scrotal Swelling (chronic) Rectal (Males) Exam: Heme - Stool (times one, two more pending) Back Exam: Normal Inspection (for patient) Extremities: Pedal Edema (minimal edema), Other (extreme muscle wasting) Skin: Warm, Dry, Intact Neurological: Cranial Nerves Intact, Other (quadriplegia since 1979) Neuro Extensive - Mental Status: Alert, Oriented x3, Normal Mood/Affect, Normal Cognition, Memory Intact Neuro Extensive - Motor, Sensory, Reflexes: Motor/Sensory Deficits ( quadriplegia with some use of UE, R > L) Psychiatric: Alert, Normal Affect, Normal Mood Problem List Initiated/Reviewed/Updated: Yes Orders Last 24hrs: Active Orders 24 hr Category Date Time Status Patient Status [ADT] Routine ADT 05/10/18 10:15 Active Blood Glucose Check, Bedside [RC] BIDMEALS Care 05/10/18 10:15 Active Communication Order [RC] PER UNIT ROUTINE Care 05/10/18 10:15 Active Communication Order [RC] ROUTINE Care 05/10/18 10:15 Active Dietary Supplements [RC] BIDAC Care 05/10/18 10:15 Active Enema [RC] ASDIRECTED Care 05/10/18 10:20 Active Enema [RC] ASDIRECTED Care 05/10/18 10:30 Inactive Intake and Output [RC] QSHIFT Care 05/10/18 10:15 Active Notify Provider Consults [RC] ASDIRECTED Care 05/10/18 10:15 Active Notify Provider Consults [RC] ASDIRECTED Care 05/10/18 10:16 Active Oxygen Therapy [RC] PRN Care 05/10/18 10:15 Active VTE/DVT Education [RC] PER UNIT ROUTINE Care 05/10/18 10:15 Active Vital Signs [RC] Q8HR Care 05/10/18 10:15 Active Consult to Pharmacy [CONS] Routine Cons 05/10/18 10:15 Active Consult to Physician [CONS] Routine Cons 05/10/18 10:15 Active PT Evaluation and Treatment [CONS] Routine Cons 05/10/18 10:15 Active ADA Diabetic [[place] [employer] Diet] [DIET Diet 05/10/18 Lunch Active ] NPO Now [Nothing per Oral Now Diet] [DIET] Diet 05/10/18 Lunch Active Echo Comp wo Cont [US] Routine Exams 05/15/18 12:00 Ordered VANCOMYCIN TROUGH [CHEM] Timed Lab 05/11/18 06:00 Ordered Acetaminophen [Tylenol] Med 05/10/18 10:15 Ordered 650 mg PO Q6HR PRN Alum Hydrox/Mag Hydrox/Simeth [Mag-Al Plus] Med 05/10/18 10:15 Ordered 30 ml PO Q4H PRN Ascorbic Acid [Vitamin C] Med 05/10/18 12:00 Ordered 1,000 mg PO QID Baclofen [Lioresal] Med 05/10/18 12:00 Ordered 20 mg PO QID Calcium Carbonate [Tums Extra Strength] Med 05/10/18 10:15 Ordered 750 mg PO Q2HR PRN [place] Tar [Thera-Gel] Med 05/10/18 10:15 Ordered 0 ml TOP ASDIRECTED PRN Famotidine [Pepcid] Med 05/10/18 18:00 Ordered 20 mg PO QPM Furosemide [Lasix] Med 05/10/18 12:00 Ordered 20 mg PO TID Gabapentin [Neurontin] Med 05/10/18 20:00 Ordered 100 mg PO BEDTIME Gentamicin [Gentamicin 0.1%] Med 05/10/18 20:00 Ordered 0 gm TOP Q12HR LORazepam [Ativan] Med 05/10/18 10:15 Ordered 1 mg PO BEDTIME PRN Lisinopril [Prinivil] Med 05/10/18 20:00 Ordered 20 mg PO Q12HR Multivitamins [Tab-A-Sara] Med 05/11/18 08:00 Ordered 1 tab PO DAILY Nystatin [Nystatin Crm] Med 05/10/18 20:00 Ordered 0 gm TOP BID@0800,2000 Nystatin [Nystatin Crm] Med 05/10/18 10:15 Ordered 0 gm TOP TID PRN Nystatin [Nystop] Med 05/10/18 20:00 Ordered 0 gm TOP BID@0800,2000 Polyvinyl Alcohol [LiquiTears 1.4% Ophth Soln] Med 05/10/18 10:15 Ordered 0 ml EYEBOTH Q1H PRN Potassium Chloride [Klor-Con 10] Med 05/10/18 12:00 Ordered 20 meq PO TID@0800,1200,1800 Sodium Chloride Med 05/10/18 12:00 Ordered 1 gm PO TID Sodium Chloride 0.9% [Saline Flush] Med 05/10/18 10:15 Ordered 10 ml FLUSH ASDIRECTED PRN Triamcinolone Acetonide [Triamcinolone Acetonide 0.5%] Med 05/10/18 10:15 Ordered 0 gm TOP BID PRN Vancomycin 1.5 gm Med 05/10/18 18:30 Ordered Sodium Chloride 0.9% [Normal Saline] 500 ml IV Q12H Vancomycin Pharmacy to Dose [Pharmacy to Dose - Med 05/10/18 10:15 Pending Vancomycin] 1 dose .XX ASDIRECTED guanFACINE Med 05/11/18 08:00 Ordered 1 mg PO QAM guanFACINE Med 05/10/18 20:00 Ordered 2 mg PO BEDTIME metFORMIN [Glucophage] Med 05/10/18 17:30 Ordered 850 mg PO BIDMEALS Air Mattress [Pressure Reduction Mattress] [OM.PC] Oth 05/10/18 10:15 Ordered Routine Isolation [COMM] Routine Oth 05/10/18 10:15 Ordered Resuscitation Status Routine Resus Stat 05/10/18 10:18 Ordered Medication Orders Acetaminophen (Tylenol) 650 mg PO Q6HR PRN PRN Reason: Pain Al Hydroxide/Mg Hydroxide (Mag-Al Plus) 30 ml PO Q4H PRN PRN Reason: GI upset Artificial Tears (Liquitears 1.4% Ophth Soln) 0 ml EYEBOTH Q1H PRN PRN Reason: Dry Eyes Ascorbic Acid (Vitamin C) 1,000 mg PO QID LAURIE Baclofen (Lioresal) 20 mg PO QID LAURIE Calcium Carbonate/Glycine (Tums Extra Strength) 750 mg PO Q2HR PRN PRN Reason: Indigestion [place] Tar (Thera-Gel) 0 ml TOP ASDIRECTED PRN PRN Reason: dry skin Famotidine (Pepcid) 20 mg PO QPM LAURIE Furosemide (Lasix) 20 mg PO TID LAURIE Gabapentin (Neurontin) 100 mg PO BEDTIME LAURIE Gentamicin Sulfate (Gentamicin 0.1%) 0 gm TOP Q12HR LAURIE Guanfacine HCl (Guanfacine) 1 mg PO QAM LAURIE Guanfacine HCl (Guanfacine) 2 mg PO BEDTIME LAURIE Vancomycin HCl 1.5 gm/ Sodium (Chloride) 500 mls @ 220 mls/hr IV Q12H LAURIE Lisinopril (Prinivil) 20 mg PO Q12HR LAURIE Lorazepam (Ativan) 1 mg PO BEDTIME PRN PRN Reason: Insomnia Metformin HCl (Glucophage) 850 mg PO BIDMEALS [facility] Multivitamins/Minerals/Vitamin C (Tab-A-Sara) 1 tab PO DAILY LAURIE Nystatin (Nystatin Crm) 0 gm TOP TID PRN PRN Reason: Rash Nystatin (Nystatin Crm) 0 gm TOP BID@0800,2000 LAURIE Nystatin (Nystop) 0 gm TOP BID@0800,2000 [facility] Potassium Chloride (Klor-Con 10) 20 meq PO TID@0800,1200,1800 LAURIE Sodium Chloride (Sodium Chloride) 1 gm PO TID [facility] Sodium Chloride (Saline Flush) 10 ml FLUSH ASDIRECTED PRN PRN Reason: Keep Vein Open Triamcinolone Acetonide (Triamcinolone Acetonide 0.5%) 0 gm TOP BID PRN PRN Reason: Rash Vancomycin HCl (Pharmacy To Dose - Vancomycin) 1 dose .XX ASDIRECTED [facility] Assessment/Plan Comment:: 05-10-18 Chidi Nagy PA-C Patient transferred to [facility] for continued IV antibiotics and monitoring of VS. Dr. Delong is seeing today for consult regarding the thickening in the colon wall near in the rectal area. After discussion with Dr. Delong I ordered Fleets enema x 2 and made pt. npo until after a planned limited colonoscope at the end of Dr. Delong' day. I will return later to excise and cauterize the excess granulation tissue that chronically develops at the insertion site of the suprapubic catheter.
--- NOTE | 2018-05-10 14:10 | PCM.SN ---
- Free Text/Narrative Note: 05-10-[address] called me at [facility] to report he had been able to examine about 25cm of colon and found no concerning process (area of concern was in the rectal area ).
[2018-05-10] MEDS: Ascorbic Acid 500 MG Tab PO SCH ×3 (15:43→20:23)
[2018-05-10] MEDS: Baclofen 10 MG Tab PO SCH ×3 (15:44→20:27)
[2018-05-10] MEDS: Potassium Chloride 10 MEQ Tab.ER PO SCH ×2 (17:15→17:17)
[2018-05-10] MEDS: Furosemide 20 MG Tab PO SCH ×2 (17:15→17:18)
[2018-05-10] MEDS: Sodium Chloride 1 GM Tab PO SCH ×2 (17:16→17:17)
[2018-05-10] MEDS: Calcium Carbonate 750 MG Tab.Chew PO PRN (17:16)
[2018-05-10] MEDS: Famotidine 20 MG Tab PO SCH (17:18)
[2018-05-10] MEDS: Vancomycin 1.5 GM in Sodium Chloride 0.9% 500 ML IV SCH (19:04)
[2018-05-10] MEDS: Sodium Chloride 0.9% 10 ML Syringe FLUSH PRN (19:04)
[2018-05-10] MEDS: Gabapentin 100 MG Cap PO SCH (20:27)
[2018-05-10] MEDS: guanFACINE 1 MG Tab PO SCH (20:28)
[2018-05-10] MEDS: Lisinopril 20 MG Tab PO SCH (20:28)
[2018-05-10] MEDS: Gentamicin 0.1% Crm 15 GM Tube TOP SCH (20:30)
[2018-05-10] MEDS: Nystatin Crm 30 GM Tube TOP SCH (20:31)
[2018-05-10] MEDS: Nystatin Topical Powder 15 GM Bottle TOP SCH (20:32)
[2018-05-11] MEDS: Vancomycin 1.5 GM in Sodium Chloride 0.9% 500 ML IV SCH (08:43)
[2018-05-11] MEDS: Potassium Chloride 10 MEQ Tab.ER PO SCH ×3 (08:48→17:39)
[2018-05-11] MEDS: guanFACINE 1 MG Tab PO SCH ×2 (08:48→21:19)
[2018-05-11] MEDS: Baclofen 10 MG Tab PO SCH ×4 (08:48→21:19)
[2018-05-11] MEDS: Furosemide 20 MG Tab PO SCH ×3 (08:53→17:39)
[2018-05-11] MEDS: Ascorbic Acid 500 MG Tab PO SCH ×4 (08:53→21:19)
[2018-05-11] MEDS: Multivitamin Tab PO SCH (08:53)
[2018-05-11] MEDS: Nystatin Crm 30 GM Tube TOP SCH ×2 (08:54→21:20)
[2018-05-11] MEDS: Lisinopril 20 MG Tab PO SCH ×2 (08:54→21:19)
[2018-05-11] MEDS: Sodium Chloride 1 GM Tab PO SCH ×3 (08:54→17:39)
[2018-05-11] MEDS: Gentamicin 0.1% Crm 15 GM Tube TOP SCH ×2 (08:55→21:21)
[2018-05-11] MEDS: Nystatin Topical Powder 15 GM Bottle TOP SCH ×2 (08:56→21:20)
[2018-05-11] MEDS: Famotidine 20 MG Tab PO SCH (17:39)
[2018-05-11] MEDS: Gabapentin 100 MG Cap PO SCH (21:20)
[2018-05-11] MEDS: Sodium Chloride 0.9% 10 ML Syringe FLUSH PRN (21:21)
[2018-05-12] MEDS: Potassium Chloride 10 MEQ Tab.ER PO SCH ×3 (07:44→17:30)
[2018-05-12] MEDS: Sodium Chloride 1 GM Tab PO SCH ×3 (07:44→17:31)
[2018-05-12] MEDS: Baclofen 10 MG Tab PO SCH ×4 (07:44→20:51)
[2018-05-12] MEDS: Ascorbic Acid 500 MG Tab PO SCH ×4 (07:45→20:50)
[2018-05-12] MEDS: guanFACINE 1 MG Tab PO SCH ×2 (07:45→20:51)
[2018-05-12] MEDS: Lisinopril 20 MG Tab PO SCH ×2 (07:47→20:51)
[2018-05-12] MEDS: Furosemide 20 MG Tab PO SCH ×3 (07:48→17:31)
[2018-05-12] MEDS: Nystatin Topical Powder 15 GM Bottle TOP SCH ×2 (07:48→20:56)
[2018-05-12] MEDS: Multivitamin Tab PO SCH (07:48)
[2018-05-12] MEDS: Nystatin Crm 30 GM Tube TOP SCH ×2 (07:49→20:53)
[2018-05-12] MEDS: Gentamicin 0.1% Crm 15 GM Tube TOP SCH ×2 (07:49→20:52)
[2018-05-12] MEDS: Famotidine 20 MG Tab PO SCH (17:31)
[2018-05-12] MEDS: Sodium Chloride 0.9% 10 ML Syringe FLUSH PRN ×3 (20:50→21:06)
[2018-05-12] MEDS: Gabapentin 100 MG Cap PO SCH (20:52)
[2018-05-13] MEDS: Gentamicin 0.1% Crm 15 GM Tube TOP SCH ×2 (07:57→20:59)
[2018-05-13] MEDS: Nystatin Crm 30 GM Tube TOP SCH ×2 (07:58→20:58)
[2018-05-13] MEDS: Nystatin Topical Powder 15 GM Bottle TOP SCH ×2 (07:58→20:59)
[2018-05-13] MEDS: Baclofen 10 MG Tab PO SCH ×4 (07:59→20:46)
[2018-05-13] MEDS: Lisinopril 20 MG Tab PO SCH ×2 (07:59→20:47)
[2018-05-13] MEDS: Ascorbic Acid 500 MG Tab PO SCH ×4 (07:59→20:47)
[2018-05-13] MEDS: Sodium Chloride 1 GM Tab PO SCH ×3 (07:59→17:26)
[2018-05-13] MEDS: Potassium Chloride 10 MEQ Tab.ER PO SCH ×3 (07:59→17:26)
[2018-05-13] MEDS: guanFACINE 1 MG Tab PO SCH ×2 (07:59→20:50)
[2018-05-13] MEDS: Furosemide 20 MG Tab PO SCH ×3 (07:59→17:26)
[2018-05-13] MEDS: Sodium Chloride 0.9% 10 ML Syringe FLUSH PRN ×2 (08:00→20:55)
[2018-05-13] MEDS: Multivitamin Tab PO SCH (08:11)
[2018-05-13] MEDS: Famotidine 20 MG Tab PO SCH (17:26)
[2018-05-13] MEDS: Gabapentin 100 MG Cap PO SCH (20:47)
[2018-05-14] MEDS: Baclofen 10 MG Tab PO SCH ×4 (08:05→21:20)
[2018-05-14] MEDS: Sodium Chloride 1 GM Tab PO SCH ×3 (08:06→17:12)
[2018-05-14] MEDS: guanFACINE 1 MG Tab PO SCH ×2 (08:06→21:20)
[2018-05-14] MEDS: Potassium Chloride 10 MEQ Tab.ER PO SCH ×3 (08:06→17:11)
[2018-05-14] MEDS: Multivitamin Tab PO SCH (08:07)
[2018-05-14] MEDS: Lisinopril 20 MG Tab PO SCH ×2 (08:07→21:21)
[2018-05-14] MEDS: Ascorbic Acid 500 MG Tab PO SCH ×4 (08:07→21:22)
[2018-05-14] MEDS: Nystatin Topical Powder 15 GM Bottle TOP SCH ×2 (08:08→21:23)
[2018-05-14] MEDS: Furosemide 20 MG Tab PO SCH ×3 (08:08→17:12)
[2018-05-14] MEDS: Gentamicin 0.1% Crm 15 GM Tube TOP SCH ×2 (08:09→21:25)
[2018-05-14] MEDS: Nystatin Crm 30 GM Tube TOP SCH ×2 (08:09→21:24)
[2018-05-14] MEDS: Sodium Chloride 0.9% 10 ML Syringe FLUSH PRN ×3 (11:39→22:49)
[2018-05-14] MEDS: Famotidine 20 MG Tab PO SCH (17:12)
[2018-05-14] MEDS ORDERED: Alteplase 2 MG Vial IVPUSH ONE (20:02)
[2018-05-14] MEDS: Gabapentin 100 MG Cap PO SCH (21:21)
[2018-05-15] MEDS: Gentamicin 0.1% Crm 15 GM Tube TOP SCH ×2 (08:15→20:51)
[2018-05-15] MEDS: Baclofen 10 MG Tab PO SCH ×4 (08:16→20:54)
[2018-05-15] MEDS: Furosemide 20 MG Tab PO SCH ×3 (08:16→16:59)
[2018-05-15] MEDS: Potassium Chloride 10 MEQ Tab.ER PO SCH ×3 (08:16→16:59)
[2018-05-15] MEDS: Nystatin Crm 30 GM Tube TOP SCH ×2 (08:18→20:49)
[2018-05-15] MEDS: Lisinopril 20 MG Tab PO SCH ×2 (08:18→20:52)
[2018-05-15] MEDS: Ascorbic Acid 500 MG Tab PO SCH ×4 (08:18→20:54)
[2018-05-15] MEDS: Multivitamin Tab PO SCH (08:18)
[2018-05-15] MEDS: Sodium Chloride 1 GM Tab PO SCH ×3 (08:18→17:00)
[2018-05-15] MEDS: guanFACINE 1 MG Tab PO SCH ×2 (08:18→20:53)
[2018-05-15] MEDS: Nystatin Topical Powder 15 GM Bottle TOP SCH ×2 (08:18→20:49)
[2018-05-15] MEDS: Sodium Chloride 0.9% 10 ML Syringe FLUSH PRN ×2 (08:43→10:46)
[2018-05-15] MEDS: Famotidine 20 MG Tab PO SCH (16:59)
[2018-05-15] MEDS: Sodium Chloride 0.9% 10 ML Syringe FLUSH SCH ×2 (20:52→23:07)
[2018-05-15] MEDS: Gabapentin 100 MG Cap PO SCH (20:53)
[2018-05-16] MEDS: LORazepam 1 MG Tab PO PRN (03:17)
[2018-05-16] MEDS: Calcium Carbonate 750 MG Tab.Chew PO PRN ×2 (03:17→15:42)
[2018-05-16] MEDS: Sodium Chloride 1 GM Tab PO SCH ×3 (09:06→17:10)
[2018-05-16] MEDS: Ascorbic Acid 500 MG Tab PO SCH ×4 (09:07→21:00)
[2018-05-16] MEDS: Multivitamin Tab PO SCH (09:08)
[2018-05-16] MEDS: Lisinopril 20 MG Tab PO SCH ×2 (09:08→21:01)
[2018-05-16] MEDS: Potassium Chloride 10 MEQ Tab.ER PO SCH ×3 (09:09→17:11)
[2018-05-16] MEDS: Furosemide 20 MG Tab PO SCH ×3 (09:10→17:11)
[2018-05-16] MEDS: Baclofen 10 MG Tab PO SCH ×4 (09:10→21:01)
[2018-05-16] MEDS: guanFACINE 1 MG Tab PO SCH ×2 (09:11→21:01)
[2018-05-16] MEDS: Nystatin Crm 30 GM Tube TOP SCH ×2 (09:13→21:01)
[2018-05-16] MEDS: Gentamicin 0.1% Crm 15 GM Tube TOP SCH ×2 (09:13→21:01)
[2018-05-16] MEDS: Nystatin Topical Powder 15 GM Bottle TOP SCH ×2 (09:14→21:02)
[2018-05-16 09:48] LABS: CHLORIDE,CL 97 mmol/L (98-107); SODIUM,NA 135 mmol/L (136-145)
[2018-05-16] MEDS: Sodium Chloride 0.9% 10 ML Syringe FLUSH SCH ×4 (11:01→23:06)
[2018-05-16] MEDS: Famotidine 20 MG Tab PO SCH (17:10)
[2018-05-16] MEDS: Gabapentin 100 MG Cap PO SCH (21:00)
[2018-05-17] MEDS: Calcium Carbonate 750 MG Tab.Chew PO PRN ×2 (01:14→11:58)
[2018-05-17] MEDS: Potassium Chloride 10 MEQ Tab.ER PO SCH ×3 (08:27→18:23)
[2018-05-17] MEDS: guanFACINE 1 MG Tab PO SCH ×2 (08:27→20:18)
[2018-05-17] MEDS: Ascorbic Acid 500 MG Tab PO SCH ×4 (08:27→20:19)
[2018-05-17] MEDS: Furosemide 20 MG Tab PO SCH ×3 (08:27→18:23)
[2018-05-17] MEDS: Lisinopril 20 MG Tab PO SCH ×2 (08:27→20:18)
[2018-05-17] MEDS: Multivitamin Tab PO SCH (08:27)
[2018-05-17] MEDS: Sodium Chloride 1 GM Tab PO SCH ×3 (08:27→18:23)
[2018-05-17] MEDS: Baclofen 10 MG Tab PO SCH ×4 (08:27→20:18)
[2018-05-17] MEDS: Nystatin Crm 30 GM Tube TOP SCH ×2 (08:28→20:20)
[2018-05-17] MEDS: Nystatin Topical Powder 15 GM Bottle TOP SCH ×2 (08:28→20:19)
[2018-05-17] MEDS: Gentamicin 0.1% Crm 15 GM Tube TOP SCH ×2 (08:28→20:17)
[2018-05-17] MEDS: Sodium Chloride 0.9% 10 ML Syringe FLUSH SCH ×4 (08:29→23:38)
[2018-05-17] MEDS: Aluminum Hydroxide/Magnesium Hydroxide/Simethicone Susp 30 ML Cup PO PRN (09:56)
--- NOTE | 2018-05-17 16:24 | PCM.PN ---
- General Info Date of Service: 05/17/18 Admission Dx/Problem (Free Text): Admission Diagnosis/Problem Admission Diagnosis/Problem Urinary tract infection Functional Status: Reports: Tolerating Diet - Review of Systems General: Reports: No Symptoms (much less severe fatigue than on admit) HEENT: Reports: No Symptoms (no headache now) Pulmonary: Reports: No Symptoms Cardiovascular: Reports: No Symptoms Gastrointestinal: Reports: No Symptoms Genitourinary: Reports: No Symptoms Musculoskeletal: Reports: No Symptoms Skin: Reports: No Symptoms Neurological: Reports: No Symptoms Psychiatric: Reports: No Symptoms - Patient Data Vitals - Most Recent: Last Vital Signs Temp 98.0 F 05/17/18 08:00 Pulse 63 05/17/18 08:00 Resp 16 05/17/18 08:00 BP 137/77 05/17/18 08:27 Pulse Ox 97 05/17/18 08:00 Weight - Most Recent: 233 lb 8 oz I&O - Last 24 Hours: Intake & Output 05/17/18 05/17/18 05/17/18 06:59 14:59 22:59 Intake Total 670 1280 Output Total 1700 1250 Balance -1030 30 Lab Results Last 24 Hours: Laboratory Results - last 24 hr 05/16/18 05/17/18 Range/Units 19:50 07:44 POC Glucose 184 H (65-110) mg/dl Random Vancomycin 10.8 ug/mL Med Orders - Current: Current Medications Acetaminophen (Tylenol) 650 mg PO Q6HR PRN PRN Reason: Pain Al Hydroxide/Mg Hydroxide (Mag-Al Plus) 30 ml PO Q4H PRN PRN Reason: GI upset Last Admin: 05/17/18 09:56 Dose: 30 ml Artificial Tears (Liquitears 1.4% Ophth Soln) 0 ml EYEBOTH Q1H PRN PRN Reason: Dry Eyes Ascorbic Acid (Vitamin C) 1,000 mg PO QID LAURIE Last Admin: 05/17/18 11:40 Dose: 1,000 mg Baclofen (Lioresal) 20 mg PO QID LAURIE Last Admin: 05/17/18 11:40 Dose: 20 mg Calcium Carbonate/Glycine (Tums Extra Strength) 750 mg PO Q2HR PRN PRN Reason: Indigestion Last Admin: 05/17/18 11:58 Dose: 750 mg [place] Tar (Thera-Gel) 0 ml TOP ASDIRECTED PRN PRN Reason: dry skin Famotidine (Pepcid) 20 mg PO Q12HR [facility] Furosemide (Lasix) 20 mg PO TID [facility] Last Admin: 05/17/18 11:39 Dose: 20 mg Gabapentin (Neurontin) 100 mg PO BEDTIME [facility] Last Admin: 05/16/18 21:00 Dose: 100 mg Gentamicin Sulfate (Gentamicin 0.1%) 0 gm TOP Q12HR [facility] Last Admin: 05/17/18 08:28 Dose: 1 applic Guanfacine HCl (Guanfacine) 1 mg PO QAM [facility] Last Admin: 05/17/18 08:27 Dose: 1 mg Guanfacine HCl (Guanfacine) 2 mg PO BEDTIME [facility] Last Admin: 05/16/18 21:01 Dose: 2 mg Heparin Sodium (Porcine) (Heparin Lock Flush 100 Units/Ml) 300 units FLUSH Q12H [facility] Last Admin: 05/17/18 09:57 Dose: Not Given Heparin Sodium (Porcine) (Heparin Lock Flush 100 Units/Ml) 300 units FLUSH ASDIRECTED PRN PRN Reason: KEEP LINE PATENT Vancomycin HCl 1.25 gm/ Sodium (Chloride) 250 mls @ 135 mls/hr IV Q24H [facility] Last Admin: 05/16/18 21:00 Dose: 135 mls/hr Lisinopril (Prinivil) 20 mg PO Q12HR [facility] Last Admin: 05/17/18 08:27 Dose: 20 mg Lorazepam (Ativan) 1 mg PO BEDTIME PRN PRN Reason: Insomnia Last Admin: 05/16/18 03:17 Dose: 1 mg Metformin HCl (Glucophage) 850 mg PO BIDMEALS [facility] Last Admin: 05/17/18 08:27 Dose: 850 mg Multivitamins/Minerals/Vitamin C (Tab-A-Sara) 1 tab PO DAILY [facility] Last Admin: 05/17/18 08:27 Dose: 1 tab Nystatin (Nystatin Crm) 0 gm TOP TID PRN PRN Reason: Rash Nystatin (Nystatin Crm) 0 gm TOP BID@799,1999 [facility] Last Admin: 05/17/18 08:28 Dose: 1 applic Nystatin (Nystop) 0 gm TOP BID@799,1999 [facility] Last Admin: 05/17/18 08:28 Dose: 1 dose Potassium Chloride (Klor-Con 10) 20 meq PO TID@0800,1200,1800 [facility] Last Admin: 05/17/18 11:39 Dose: 20 meq Sodium Chloride (Sodium Chloride) 1 gm PO TID [facility] Last Admin: 05/17/18 11:40 Dose: 1 gm Sodium Chloride (Saline Flush) 10 ml FLUSH ASDIRECTED PRN PRN Reason: Keep Vein Open Last Admin: 05/15/18 10:46 Dose: 10 ml Sodium Chloride (Saline Flush) 10 ml FLUSH Q12H [facility] Last Admin: 05/17/18 08:29 Dose: Not Given Sodium Chloride (Saline Flush) 10 ml FLUSH Q12H [facility] Last Admin: 05/17/18 09:57 Dose: Not Given Temazepam (Restoril) 15 mg PO BEDTIME PRN PRN Reason: Insomnia Triamcinolone Acetonide (Triamcinolone Acetonide 0.5%) 0 gm TOP BID PRN PRN Reason: Rash Vancomycin HCl (Pharmacy To Dose - Vancomycin) 1 dose .XX ASDIRECTED [facility] Discontinued Medications Alteplase, Recombinant (Cathflo Activase) 2 mg IVPUSH ONETIME ONE Stop: 05/14/18 20:03 Last Admin: 05/14/18 21:14 Dose: 2 mg Famotidine (Pepcid) 20 mg PO QPM [facility] Last Admin: 05/16/18 17:10 Dose: 20 mg Heparin Sodium (Porcine) (Heparin Lock Flush 100 Units/Ml) 300 units FLUSH Q12HR [facility] Last Admin: 05/15/18 10:46 Dose: 300 units Vancomycin HCl 1.5 gm/ Sodium (Chloride) 500 mls @ 220 mls/hr IV Q12H [facility] Stop: 05/11/18 10:00 Last Admin: 05/11/18 08:43 Dose: 220 mls/hr Vancomycin HCl 1.25 gm/ Sodium (Chloride) 250 mls @ 135 mls/hr IV Q12H [facility] Last Admin: 05/16/18 09:58 Dose: Not Given Vancomycin HCl 1 gm/ Sodium (Chloride) 250 mls @ 165 mls/hr IV Q24H [facility] - Exam Quality Assessment: Central Line/PICC (port), Urine Catheter (suprapubic) General: Alert, Oriented HEENT: Pupils Reactive, EOMI, Mucous Membr. Moist/[place] Neck: Trachea Midline Lungs: Clear to Auscultation, Normal Respiratory Effort Cardiovascular: Regular Rate, Regular Rhythm GI/Abdominal Exam: Normal Bowel Sounds, Soft (Male) Exam: Scrotal Swelling (chronic, improved from last week), Other ( excess granulation tissue at the catheter insertion site, cauterized today with silver nitrate sticks) Back Exam: Normal Inspection Extremities: Other (extreme muscle wasting) Skin: Warm, Dry, Intact Neurological: No New Focal Deficit Psy/Mental Status: Alert, Normal Affect, Normal Mood - Problem List Review Problem List Initiated/Reviewed/Updated: Yes - My Orders Last 24 Hours: My Active Orders 05/16/18 20:30 Vancomycin 1.25 gm Sodium Chloride 0.9% [Normal Saline] 250 ml IV Q24H - Plan Plan:: 05-10-18 Chidi Nagy PA-C Patient transferred to [facility] for continued IV antibiotics and monitoring of VS. Dr. Delong is seeing today for consult regarding the thickening in the colon wall near in the rectal area. After discussion with Dr. Delong I ordered Fleets enema x 2 and made pt. npo until after a planned limited colonoscope at the end of Dr. Delong' day. I will return later to excise and cauterize the excess granulation tissue that chronically develops at the insertion site of the suprapubic catheter. 05-17-18 Chidi Nagy PA-C Patient clinically improving. BP's have stabilized, and he no longer has the headache and extreme fatigue that appeared to be symptoms of UTI for him. I reviewed the Echo results with him from 05-15, which found an ejection fraction of 45-50% (mildly reduced). I did cauterize the excess granulation tissue that has historically developed at the insertion site of the suprapubic catheter.
[2018-05-17] MEDS: Temazepam 15 MG Cap PO PRN (20:18)
[2018-05-17] MEDS: Famotidine 20 MG Tab PO SCH (20:18)
[2018-05-17] MEDS: Gabapentin 100 MG Cap PO SCH (20:18)
[2018-05-17] MEDS: Sodium Chloride 0.9% 10 ML Syringe FLUSH PRN (22:36)
[2018-05-18] MEDS: guanFACINE 1 MG Tab PO SCH ×2 (08:22→20:32)
[2018-05-18] MEDS: Lisinopril 20 MG Tab PO SCH ×2 (08:23→20:33)
[2018-05-18] MEDS: Furosemide 20 MG Tab PO SCH ×3 (08:23→17:20)
[2018-05-18] MEDS: Ascorbic Acid 500 MG Tab PO SCH ×4 (08:24→20:32)
[2018-05-18] MEDS: Multivitamin Tab PO SCH (08:24)
[2018-05-18] MEDS: Baclofen 10 MG Tab PO SCH ×4 (08:26→20:31)
[2018-05-18] MEDS: Famotidine 20 MG Tab PO SCH ×2 (08:26→20:31)
[2018-05-18] MEDS: Sodium Chloride 1 GM Tab PO SCH ×3 (08:26→17:19)
[2018-05-18] MEDS: Potassium Chloride 10 MEQ Tab.ER PO SCH ×3 (08:27→17:19)
[2018-05-18] MEDS: Sodium Chloride 0.9% 10 ML Syringe FLUSH SCH ×4 (08:27→22:49)
[2018-05-18] MEDS: Nystatin Crm 30 GM Tube TOP PRN (08:29)
[2018-05-18] MEDS: Gentamicin 0.1% Crm 15 GM Tube TOP SCH (08:29)
[2018-05-18] MEDS: Nystatin Crm 30 GM Tube TOP SCH ×2 (08:30→21:07)
[2018-05-18] MEDS: Nystatin Topical Powder 15 GM Bottle TOP SCH ×2 (08:30→21:08)
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
[2018-05-18] MEDS: Gabapentin 100 MG Cap PO SCH (20:32)
[2018-05-18] MEDS: Escitalopram 20 MG Tab PO SCH (20:32)
[2018-05-18] MEDS: Calcium Carbonate 750 MG Tab.Chew PO PRN (22:47)
[2018-05-18] MEDS: LORazepam 1 MG Tab PO PRN (22:47)
[2018-05-19] MEDS: Potassium Chloride 10 MEQ Tab.ER PO SCH ×3 (07:40→17:07)
[2018-05-19] MEDS: guanFACINE 1 MG Tab PO SCH ×2 (07:40→20:25)
[2018-05-19] MEDS: Furosemide 20 MG Tab PO SCH ×3 (07:40→17:06)
[2018-05-19] MEDS: Baclofen 10 MG Tab PO SCH ×4 (07:40→20:20)
[2018-05-19] MEDS: Lisinopril 20 MG Tab PO SCH ×2 (07:41→20:20)
[2018-05-19] MEDS: Sodium Chloride 1 GM Tab PO SCH ×3 (07:41→17:07)
[2018-05-19] MEDS: Multivitamin Tab PO SCH (07:41)
[2018-05-19] MEDS: Ascorbic Acid 500 MG Tab PO SCH ×4 (07:41→20:20)
[2018-05-19] MEDS: Famotidine 20 MG Tab PO SCH ×2 (07:41→20:25)
[2018-05-19] MEDS: Nystatin Crm 30 GM Tube TOP SCH ×2 (07:43→20:26)
[2018-05-19] MEDS: Nystatin Topical Powder 15 GM Bottle TOP SCH ×3 (07:43→07:48)
[2018-05-19] MEDS: Sodium Chloride 0.9% 10 ML Syringe FLUSH SCH ×4 (07:44→23:05)
[2018-05-19] MEDS: Calcium Carbonate 750 MG Tab.Chew PO PRN (20:25)
[2018-05-19] MEDS: Escitalopram 20 MG Tab PO SCH (20:25)
[2018-05-19] MEDS: Gabapentin 100 MG Cap PO SCH (20:25)
[2018-05-19] MEDS: LORazepam 0.5 MG Tab PO PRN (22:16)
[2018-05-19] MEDS: Sodium Chloride 0.9% 10 ML Syringe FLUSH PRN (22:16)
[2018-05-20] MEDS: Baclofen 10 MG Tab PO SCH ×4 (07:27→20:02)
[2018-05-20] MEDS: Multivitamin Tab PO SCH (07:27)
[2018-05-20] MEDS: Ascorbic Acid 500 MG Tab PO SCH ×4 (07:28→20:01)
[2018-05-20] MEDS: Lisinopril 20 MG Tab PO SCH ×2 (07:28→20:02)
[2018-05-20] MEDS: guanFACINE 1 MG Tab PO SCH ×2 (07:28→20:01)
[2018-05-20] MEDS: Sodium Chloride 1 GM Tab PO SCH ×3 (07:29→17:27)
[2018-05-20] MEDS: Potassium Chloride 10 MEQ Tab.ER PO SCH ×3 (07:29→17:27)
[2018-05-20] MEDS: Famotidine 20 MG Tab PO SCH ×2 (07:30→20:01)
[2018-05-20] MEDS: Nystatin Crm 30 GM Tube TOP PRN (07:30)
[2018-05-20] MEDS: Furosemide 20 MG Tab PO SCH ×3 (07:30→17:27)
[2018-05-20] MEDS: Nystatin Topical Powder 15 GM Bottle TOP SCH (07:31)
[2018-05-20] MEDS: Nystatin Crm 30 GM Tube TOP SCH ×2 (07:31→20:56)
[2018-05-20] MEDS: Sodium Chloride 0.9% 10 ML Syringe FLUSH SCH ×4 (07:32→23:02)
[2018-05-20] MEDS: Calcium Carbonate 750 MG Tab.Chew PO PRN (20:00)
[2018-05-20] MEDS: Gabapentin 100 MG Cap PO SCH (20:01)
[2018-05-20] MEDS: Escitalopram 20 MG Tab PO SCH (20:02)
[2018-05-21] MEDS: Sodium Chloride 1 GM Tab PO SCH ×3 (07:41→17:31)
[2018-05-21] MEDS: guanFACINE 1 MG Tab PO SCH ×2 (07:41→19:48)
[2018-05-21] MEDS: Furosemide 20 MG Tab PO SCH ×3 (07:46→17:31)
[2018-05-21] MEDS: Potassium Chloride 10 MEQ Tab.ER PO SCH ×3 (07:46→17:31)
[2018-05-21] MEDS: Multivitamin Tab PO SCH (07:46)
[2018-05-21] MEDS: Lisinopril 20 MG Tab PO SCH ×2 (07:47→19:46)
[2018-05-21] MEDS: Famotidine 20 MG Tab PO SCH ×2 (07:48→19:47)
[2018-05-21] MEDS: Ascorbic Acid 500 MG Tab PO SCH ×4 (07:48→19:46)
[2018-05-21] MEDS: Fluconazole 100 MG Tab PO SCH (07:48)
[2018-05-21] MEDS: Baclofen 10 MG Tab PO SCH ×4 (07:49→19:46)
[2018-05-21] MEDS: Sodium Chloride 0.9% 10 ML Syringe FLUSH SCH ×4 (07:50→23:06)
[2018-05-21] MEDS: Nystatin Crm 30 GM Tube TOP PRN (07:53)
[2018-05-21] MEDS: Nystatin Crm 30 GM Tube TOP SCH ×2 (07:53→19:49)
[2018-05-21] MEDS: Nystatin Topical Powder 15 GM Bottle TOP SCH (09:49)
[2018-05-21] MEDS: Sodium Chloride 0.9% 10 ML Syringe FLUSH PRN (11:20)
[2018-05-21] MEDS: Escitalopram 20 MG Tab PO SCH (19:47)
[2018-05-21] MEDS: Gabapentin 100 MG Cap PO SCH (19:48)
[2018-05-22] MEDS: Fluconazole 100 MG Tab PO SCH (09:29)
[2018-05-22] MEDS: guanFACINE 1 MG Tab PO SCH ×2 (09:29→20:50)
[2018-05-22] MEDS: Potassium Chloride 10 MEQ Tab.ER PO SCH ×3 (09:32→17:46)
[2018-05-22] MEDS: Baclofen 10 MG Tab PO SCH ×4 (09:32→20:50)
[2018-05-22] MEDS: Furosemide 20 MG Tab PO SCH ×3 (09:32→17:46)
[2018-05-22] MEDS: Lisinopril 20 MG Tab PO SCH ×2 (09:33→20:50)
[2018-05-22] MEDS: Famotidine 20 MG Tab PO SCH ×2 (09:33→20:50)
[2018-05-22] MEDS: Sodium Chloride 1 GM Tab PO SCH ×3 (09:34→17:46)
[2018-05-22] MEDS: Ascorbic Acid 500 MG Tab PO SCH ×4 (09:34→20:50)
[2018-05-22] MEDS: Multivitamin Tab PO SCH (09:34)
[2018-05-22] MEDS: Sodium Chloride 0.9% 10 ML Syringe FLUSH PRN ×2 (09:36→12:53)
[2018-05-22] MEDS: Sodium Chloride 0.9% 10 ML Syringe FLUSH SCH ×4 (09:38→22:58)
[2018-05-22] MEDS: Nystatin Topical Powder 15 GM Bottle TOP SCH (09:38)
[2018-05-22 09:45] LABS: CHLORIDE,CL 97 mmol/L (98-107); SODIUM,NA 133 mmol/L (136-145)
[2018-05-22] MEDS: Nystatin Crm 30 GM Tube TOP PRN (12:51)
[2018-05-22] MEDS: Nystatin Crm 30 GM Tube TOP SCH ×2 (12:52→20:51)
[2018-05-22] MEDS: Gabapentin 100 MG Cap PO SCH (20:50)
[2018-05-22] MEDS: Escitalopram 20 MG Tab PO SCH (20:50)
[2018-05-23] MEDS: Ascorbic Acid 500 MG Tab PO SCH ×4 (08:15→20:31)
[2018-05-23] MEDS: Furosemide 20 MG Tab PO SCH ×3 (08:15→17:22)
[2018-05-23] MEDS: guanFACINE 1 MG Tab PO SCH ×2 (08:15→20:30)
[2018-05-23] MEDS: Lisinopril 20 MG Tab PO SCH ×2 (08:15→20:29)
[2018-05-23] MEDS: Multivitamin Tab PO SCH (08:15)
[2018-05-23] MEDS: Baclofen 10 MG Tab PO SCH ×4 (08:15→20:30)
[2018-05-23] MEDS: Famotidine 20 MG Tab PO SCH ×2 (08:16→20:30)
[2018-05-23] MEDS: Fluconazole 100 MG Tab PO SCH (08:16)
[2018-05-23] MEDS: Sodium Chloride 1 GM Tab PO SCH ×3 (08:16→17:22)
[2018-05-23] MEDS: Potassium Chloride 10 MEQ Tab.ER PO SCH ×3 (08:16→17:22)
[2018-05-23] MEDS: Nystatin Crm 30 GM Tube TOP PRN (08:22)
[2018-05-23] MEDS: Nystatin Topical Powder 15 GM Bottle TOP SCH (08:22)
[2018-05-23] MEDS: Nystatin Crm 30 GM Tube TOP SCH ×4 (08:23→20:42)
[2018-05-23] MEDS: Sodium Chloride 0.9% 10 ML Syringe FLUSH SCH ×4 (11:26→20:34)
--- NOTE | 2018-05-23 12:42 | PCM.SN ---
- Free Text/Narrative Note: 05-23-18 Urine culture now grows out Pseudomonas aeruginosa, and patient is again symptomatic with headache, increased visual disturbance, malaise and extreme fatigue. These have historically been his symptoms indicative of UTI. I have had long discussions with patient and his regarding the benefits vs. the risks of antibiotic treatment, particularly in light of his history of severe C. diff. diarrhea, and they are very aware of this potentially life-threatening risk but he cannot tolerate the symptoms and wants to treat. Did consult Dr. Syed, and will examine patient again tomorrow.
[2018-05-23] MEDS: Levofloxacin/Dextrose 5%-Water 500 MG in Premix Bag 1 BAG IV SCH (13:13)
[2018-05-23] MEDS: cefTAZidime 1 GM Vial IVPUSH SCH ×2 (13:13→20:33)
[2018-05-23] MEDS: Sodium Chloride 0.9% 10 ML Syringe FLUSH PRN (14:13)
[2018-05-23] MEDS: Escitalopram 20 MG Tab PO SCH (20:30)
[2018-05-23] MEDS: Gabapentin 100 MG Cap PO SCH (20:31)
[2018-05-24] MEDS: Sodium Chloride 0.9% 10 ML Syringe FLUSH SCH ×6 (05:18→20:57)
[2018-05-24] MEDS: cefTAZidime 1 GM Vial IVPUSH SCH ×3 (05:18→20:59)
[2018-05-24] MEDS: Ascorbic Acid 500 MG Tab PO SCH ×4 (07:48→20:54)
[2018-05-24] MEDS: Famotidine 20 MG Tab PO SCH ×2 (07:48→20:54)
[2018-05-24] MEDS: Potassium Chloride 10 MEQ Tab.ER PO SCH ×3 (07:48→17:04)
[2018-05-24] MEDS: Multivitamin Tab PO SCH (07:48)
[2018-05-24] MEDS: Sodium Chloride 1 GM Tab PO SCH ×3 (07:49→17:03)
[2018-05-24] MEDS: Furosemide 20 MG Tab PO SCH ×3 (07:49→17:03)
[2018-05-24] MEDS: Baclofen 10 MG Tab PO SCH ×4 (07:49→20:55)
[2018-05-24] MEDS: Fluconazole 100 MG Tab PO SCH (07:49)
[2018-05-24] MEDS: Nystatin Topical Powder 15 GM Bottle TOP SCH (07:51)
[2018-05-24] MEDS: Nystatin Crm 30 GM Tube TOP SCH ×2 (07:51→21:07)
[2018-05-24] MEDS: guanFACINE 1 MG Tab PO SCH ×2 (07:53→20:53)
[2018-05-24] MEDS: Lisinopril 20 MG Tab PO SCH ×2 (07:55→20:55)
--- NOTE | 2018-05-24 10:56 | PCM.PN ---
- General Info Date of Service: 05/24/18 Admission Dx/Problem (Free Text): Admission Diagnosis/Problem Admission Diagnosis/Problem Urinary tract infection - Review of Systems General: Reports: Fatigue, Malaise HEENT: Reports: Headaches, Visual Changes (blurring) Pulmonary: Reports: No Symptoms Cardiovascular: Reports: No Symptoms Gastrointestinal: Reports: No Symptoms Genitourinary: Reports: No Symptoms Musculoskeletal: Reports: No Symptoms Skin: Reports: No Symptoms Neurological: Reports: No Symptoms Psychiatric: Reports: Depression, Anxiety (thinks anxiety/depression improving a little now on the Lexapro) - Patient Data Vitals - Most Recent: Last Vital Signs Temp 97.4 F 05/24/18 07:55 Pulse 63 05/24/18 07:55 Resp 18 05/24/18 07:55 BP 133/69 05/24/18 07:55 Pulse Ox 98 05/24/18 07:55 Weight - Most Recent: 227 lb 11.2 oz I&O - Last 24 Hours: Intake & Output 05/23/18 05/24/18 05/24/18 22:59 06:59 14:59 Intake Total 1040 400 340 Output Total 1000 700 Balance 40 -300 340 Lab Results Last 24 Hours: Laboratory Results - last 24 hr 05/23/18 05/24/18 Range/Units 17:33 07:42 POC Glucose 130 H 139 H (65-110) mg/dl Sadi Results Last 24 Hours: Microbiology 05/21/18 10:08 Urine Culture - Final Urine, Suprapubic Bladder Asp Pseudo Aeruginosa Med Orders - Current: Current Medications Acetaminophen (Tylenol) 650 mg PO Q6HR PRN PRN Reason: Pain Al Hydroxide/Mg Hydroxide (Mag-Al Plus) 30 ml PO Q4H PRN PRN Reason: GI upset Last Admin: 05/17/18 09:56 Dose: 30 ml Artificial Tears (Liquitears 1.4% Ophth Soln) 0 ml EYEBOTH Q1H PRN PRN Reason: Dry Eyes Ascorbic Acid (Vitamin C) 1,000 mg PO QID LAURIE Last Admin: 05/24/18 07:48 Dose: 1,000 mg Baclofen (Lioresal) 20 mg PO QID LAURIE Last Admin: 05/24/18 07:49 Dose: 20 mg Calcium Carbonate/Glycine (Tums Extra Strength) 750 mg PO Q2HR PRN PRN Reason: Indigestion Last Admin: 05/20/18 20:00 Dose: 750 mg Ceftazidime (Fortaz) 1 gm IVPUSH Q8H ON LICENSE OF [facility] Stop: 06/06/18 13:01 Last Admin: 05/24/18 05:18 Dose: 1 gm [place] Tar (Thera-Gel) 0 ml TOP ASDIRECTED PRN PRN Reason: dry skin Escitalopram Oxalate (Lexapro) 20 mg PO DAILY@1999 ON LICENSE OF [facility] Last Admin: 05/23/18 20:30 Dose: 20 mg Famotidine (Pepcid) 20 mg PO Q12HR ON LICENSE OF [facility] Last Admin: 05/24/18 07:48 Dose: 20 mg Fluconazole (Diflucan) 50 mg PO DAILY ON LICENSE OF [facility] Last Admin: 05/24/18 07:49 Dose: 50 mg Furosemide (Lasix) 20 mg PO TID ON LICENSE OF [facility] Last Admin: 05/24/18 07:49 Dose: 20 mg Gabapentin (Neurontin) 100 mg PO BEDTIME ON LICENSE OF [facility] Last Admin: 05/23/18 20:31 Dose: 100 mg Guanfacine HCl (Guanfacine) 1 mg PO QAM ON LICENSE OF [facility] Last Admin: 05/24/18 07:53 Dose: 1 mg Guanfacine HCl (Guanfacine) 2 mg PO BEDTIME ON LICENSE OF [facility] Last Admin: 05/23/18 20:30 Dose: 2 mg Heparin Sodium (Porcine) (Heparin Lock Flush 100 Units/Ml) 300 units FLUSH ASDIRECTED PRN PRN Reason: KEEP LINE PATENT Last Admin: 05/23/18 14:13 Dose: 300 units Heparin Sodium (Porcine) (Heparin Lock Flush 100 Units/Ml) 300 units FLUSH TID@ 0530,1400,2130 ON LICENSE OF [facility] Last Admin: 05/24/18 05:18 Dose: 300 units Levofloxacin/Dextrose 500 mg/ (Premix) 100 mls @ 100 mls/hr IV Q24H ON LICENSE OF [facility] Stop: 06/06/18 13:01 Last Admin: 05/23/18 13:13 Dose: 100 mls/hr Lisinopril (Prinivil) 20 mg PO Q12HR ON LICENSE OF [facility] Last Admin: 05/24/18 07:55 Dose: 20 mg Lorazepam (Ativan) 0.5 mg PO BEDTIME PRN PRN Reason: Insomnia Last Admin: 05/19/18 22:16 Dose: 0.5 mg Metformin HCl (Glucophage) 850 mg PO BIDMEALS ON LICENSE OF [facility] Last Admin: 05/24/18 07:48 Dose: 850 mg Multivitamins/Minerals/Vitamin C (Tab-A-Sara) 1 tab PO DAILY ON LICENSE OF [facility] Last Admin: 05/24/18 07:48 Dose: 1 tab Nystatin (Nystatin Crm) 0 gm TOP TID PRN PRN Reason: Rash Last Admin: 05/22/18 12:51 Dose: 1 applic Nystatin (Nystop) 0 gm TOP DAILY ON LICENSE OF [facility] Last Admin: 05/24/18 07:51 Dose: 1 applic Nystatin (Nystatin Crm) 0 gm TOP 08,20 ON LICENSE OF [facility] Last Admin: 05/24/18 07:51 Dose: 1 applic Potassium Chloride (Klor-Con 10) 20 meq PO TID@0800,1200,1800 ON LICENSE OF [facility] Last Admin: 05/24/18 07:48 Dose: 20 meq Sodium Chloride (Sodium Chloride) 1 gm PO TID ON LICENSE OF [facility] Last Admin: 05/24/18 07:49 Dose: 1 gm Sodium Chloride (Saline Flush) 10 ml FLUSH ASDIRECTED PRN PRN Reason: Keep Vein Open Last Admin: 05/23/18 14:13 Dose: 10 ml Sodium Chloride (Saline Flush) 10 ml FLUSH TID@0500,1300,2100 ON LICENSE OF [facility] Last Admin: 05/24/18 05:18 Dose: 10 ml Sodium Chloride (Saline Flush) 10 ml FLUSH TID@0530,1330,2130 ON LICENSE OF [facility] Last Admin: 05/24/18 05:18 Dose: 10 ml Temazepam (Restoril) 15 mg PO BEDTIME PRN PRN Reason: Insomnia Last Admin: 05/17/18 20:18 Dose: 15 mg Triamcinolone Acetonide (Triamcinolone Acetonide 0.5%) 0 gm TOP BID PRN PRN Reason: Rash Discontinued Medications Alteplase, Recombinant (Cathflo Activase) 2 mg IVPUSH ONETIME ONE Stop: 05/14/18 20:03 Last Admin: 05/14/18 21:14 Dose: 2 mg Famotidine (Pepcid) 20 mg PO QPM ON LICENSE OF [facility] Last Admin: 05/16/18 17:10 Dose: 20 mg Fluconazole (Diflucan) 100 mg PO DAILY ON LICENSE OF [facility] Last Admin: 05/23/18 08:16 Dose: 100 mg Fluconazole (Diflucan) 100 mg PO Q2D@0800 ON LICENSE OF [facility] Gentamicin Sulfate (Gentamicin 0.1%) 0 gm TOP Q12HR ON LICENSE OF [facility] Last Admin: 05/18/18 08:29 Dose: 1 applic Heparin Sodium (Porcine) (Heparin Lock Flush 100 Units/Ml) 300 units FLUSH Q12HR ON LICENSE OF [facility] Last Admin: 05/15/18 10:46 Dose: 300 units Heparin Sodium (Porcine) (Heparin Lock Flush 100 Units/Ml) 300 units FLUSH Q12H ON LICENSE OF [facility] Last Admin: 05/23/18 11:26 Dose: 300 units Vancomycin HCl 1.5 gm/ Sodium (Chloride) 500 mls @ 220 mls/hr IV Q12H ON LICENSE OF [facility] Stop: 05/11/18 10:00 Last Admin: 05/11/18 08:43 Dose: 220 mls/hr Vancomycin HCl 1.25 gm/ Sodium (Chloride) 250 mls @ 135 mls/hr IV Q12H ON LICENSE OF [facility] Last Admin: 05/16/18 09:58 Dose: Not Given Vancomycin HCl 1.25 gm/ Sodium (Chloride) 250 mls @ 135 mls/hr IV Q24H ON LICENSE OF [facility] Last Admin: 05/18/18 20:30 Dose: 135 mls/hr Vancomycin HCl 1 gm/ Sodium (Chloride) 250 mls @ 165 mls/hr IV Q24H ON LICENSE OF [facility] Vancomycin HCl 1 gm/ Sodium (Chloride) 250 mls @ 165 mls/hr IV Q24H ON LICENSE OF [facility] Last Admin: 05/20/18 21:24 Dose: 165 mls/hr Vancomycin HCl 1.25 gm/ Sodium (Chloride) 250 mls @ 170 mls/hr IV Q24H ON LICENSE OF [facility] Last Admin: 05/22/18 20:52 Dose: 170 mls/hr Lorazepam (Ativan) 1 mg PO BEDTIME PRN PRN Reason: Insomnia Last Admin: 05/18/18 22:47 Dose: 1 mg Nystatin (Nystatin Crm) 0 gm TOP BID@ ON LICENSE OF [facility] Last Admin: 05/19/18 07:43 Dose: 1 applic Nystatin (Nystop) 0 gm TOP BID@ ON LICENSE OF [facility] Last Admin: 05/19/18 07:48 Dose: Not Given Sodium Chloride (Saline Flush) 10 ml FLUSH Q12H ON LICENSE OF [facility] Last Admin: 05/23/18 11:26 Dose: 10 ml Sodium Chloride (Saline Flush) 10 ml FLUSH Q12H ON LICENSE OF [facility] Last Admin: 05/23/18 11:29 Dose: 10 ml Vancomycin HCl (Pharmacy To Dose - Vancomycin) 1 dose .XX ASDIRECTED LAURIE - Exam Quality Assessment: Central Line/PICC (port ), Urine Catheter (suprapubic) General: Alert, Oriented HEENT: Pupils Reactive, EOMI, Mucous Membr. Moist/[place] Neck: Trachea Midline, No JVD Lungs: Clear to Auscultation Cardiovascular: Regular Rate, Regular Rhythm GI/Abdominal Exam: Normal Bowel Sounds, Soft (Male) Exam: Scrotal Swelling (but improved) Back Exam: Normal Inspection Extremities: Other (some mildly pitting edema BLE, skin intact) Skin: Warm, Dry, Intact Neurological: No New Focal Deficit Psy/Mental Status: Alert, Normal Affect, Labile Mood (when we talk about his concerns for Lottie, and his future) - Problem List Review Problem List Initiated/Reviewed/Updated: Yes - My Orders Last 24 Hours: My Active Orders 05/23/18 13:00 Levofloxacin/Dextrose 5%-Water [Levaquin in D5W 500 MG/100 ML] 500 mg Premix Bag 1 bag IV Q24H cefTAZidime [Fortaz] 1 gm IVPUSH Q8H 05/23/18 21:00 Sodium Chloride 0.9% [Saline Flush] 10 ml FLUSH TID@0500,1300,2100 05/23/18 21:30 Sodium Chloride 0.9% [Saline Flush] 10 ml FLUSH TID@0530,1330,2130 - Plan Plan:: 05-10-18 Chidi Nagy PA-C Patient transferred to [facility] for continued IV antibiotics and monitoring of VS. Dr. Delong is seeing today for consult regarding the thickening in the colon wall near in the rectal area. After discussion with Dr. Delong I ordered Fleets enema x 2 and made pt. npo until after a planned limited colonoscope at the end of Dr. Delong' day. I will return later to excise and cauterize the excess granulation tissue that chronically develops at the insertion site of the suprapubic catheter. 05-17-18 Chidi Nagy PA-C Patient clinically improving. BP's have stabilized, and he no longer has the headache and extreme fatigue that appeared to be symptoms of UTI for him. I reviewed the Echo results with him from 05-15, which found an ejection fraction of 45-50% (mildly reduced). I did cauterize the excess granulation tissue that has historically developed at the insertion site of the suprapubic catheter. 05-24-18 Chidi Nagy PA-C Patient did grow out a different organism in recent urine culture so is now on Levaquin and Fortaz rather than the Vancomycin (Pseudomonas aeruginosa). He was becoming symptomatic and urine was developing sediment and pus in the tubing. Long discussion held regarding his fears and concerns regarding his future. He very much wants to return home with his , and that is our goal as well. He does think the Lexapro is already starting to help a little, and encouragement is offered that this is a good indicator that this will be a good medicine for him the longer he is on it.
[2018-05-24] MEDS: Sodium Chloride 0.9% 10 ML Syringe FLUSH PRN (11:56)
[2018-05-24] MEDS: Levofloxacin/Dextrose 5%-Water 500 MG in Premix Bag 1 BAG IV SCH (12:00)
[2018-05-24] MEDS: Escitalopram 20 MG Tab PO SCH (20:52)
[2018-05-24] MEDS: Gabapentin 100 MG Cap PO SCH (20:54)
[2018-05-25] MEDS: Calcium Carbonate 750 MG Tab.Chew PO PRN (05:05)
[2018-05-25] MEDS: cefTAZidime 1 GM Vial IVPUSH SCH ×3 (05:05→20:36)
[2018-05-25] MEDS: Sodium Chloride 0.9% 10 ML Syringe FLUSH SCH ×6 (05:07→20:39)
[2018-05-25] MEDS ORDERED: Fluconazole 100 MG Tab PO SCH (08:00)
[2018-05-25] MEDS: Potassium Chloride 10 MEQ Tab.ER PO SCH ×3 (08:33→18:02)
[2018-05-25] MEDS: Fluconazole 100 MG Tab PO SCH (08:33)
[2018-05-25] MEDS: Furosemide 20 MG Tab PO SCH ×3 (08:33→18:02)
[2018-05-25] MEDS: Ascorbic Acid 500 MG Tab PO SCH ×4 (08:33→19:54)
[2018-05-25] MEDS: Famotidine 20 MG Tab PO SCH ×2 (08:33→19:55)
[2018-05-25] MEDS: Sodium Chloride 1 GM Tab PO SCH ×3 (08:33→18:02)
[2018-05-25] MEDS: Multivitamin Tab PO SCH (08:33)
[2018-05-25] MEDS: Baclofen 10 MG Tab PO SCH ×4 (08:33→19:54)
[2018-05-25] MEDS: guanFACINE 1 MG Tab PO SCH ×2 (08:34→19:48)
[2018-05-25] MEDS: Nystatin Topical Powder 15 GM Bottle TOP SCH (08:34)
[2018-05-25] MEDS: Lisinopril 20 MG Tab PO SCH ×2 (08:34→19:48)
[2018-05-25] MEDS: Nystatin Crm 30 GM Tube TOP SCH ×2 (11:49→19:56)
[2018-05-25] MEDS: Levofloxacin/Dextrose 5%-Water 500 MG in Premix Bag 1 BAG IV SCH (13:43)
[2018-05-25] MEDS: Gabapentin 100 MG Cap PO SCH (19:52)
[2018-05-25] MEDS: Escitalopram 20 MG Tab PO SCH (19:53)
[2018-05-26] MEDS: cefTAZidime 1 GM Vial IVPUSH SCH ×3 (05:49→20:38)
[2018-05-26] MEDS: Sodium Chloride 0.9% 10 ML Syringe FLUSH SCH ×6 (05:49→20:43)
[2018-05-26] MEDS: Ascorbic Acid 500 MG Tab PO SCH ×4 (07:33→20:37)
[2018-05-26] MEDS: Furosemide 20 MG Tab PO SCH ×3 (07:34→17:10)
[2018-05-26] MEDS: Potassium Chloride 10 MEQ Tab.ER PO SCH ×3 (07:34→17:10)
[2018-05-26] MEDS: Baclofen 10 MG Tab PO SCH ×4 (07:34→20:37)
[2018-05-26] MEDS: guanFACINE 1 MG Tab PO SCH ×2 (07:34→21:42)
[2018-05-26] MEDS: Famotidine 20 MG Tab PO SCH ×2 (07:34→20:36)
[2018-05-26] MEDS: Fluconazole 100 MG Tab PO SCH (07:34)
[2018-05-26] MEDS: Sodium Chloride 1 GM Tab PO SCH ×3 (07:34→17:10)
[2018-05-26] MEDS: Multivitamin Tab PO SCH (07:34)
[2018-05-26] MEDS: Nystatin Crm 30 GM Tube TOP PRN (07:35)
[2018-05-26] MEDS: Lisinopril 20 MG Tab PO SCH ×2 (07:35→21:42)
[2018-05-26] MEDS: Nystatin Topical Powder 15 GM Bottle TOP SCH (07:36)
[2018-05-26] MEDS: Nystatin Crm 30 GM Tube TOP SCH ×2 (07:37→20:36)
[2018-05-26] MEDS: Levofloxacin/Dextrose 5%-Water 500 MG in Premix Bag 1 BAG IV SCH (13:15)
[2018-05-26] MEDS: Sodium Chloride 0.9% 10 ML Syringe FLUSH PRN (14:16)
[2018-05-26] MEDS: Gabapentin 100 MG Cap PO SCH (20:36)
[2018-05-26] MEDS: Escitalopram 20 MG Tab PO SCH (20:37)
[2018-05-27] MEDS: cefTAZidime 1 GM Vial IVPUSH SCH ×3 (04:41→20:41)
[2018-05-27] MEDS: Calcium Carbonate 750 MG Tab.Chew PO PRN (04:41)
[2018-05-27] MEDS: Sodium Chloride 0.9% 10 ML Syringe FLUSH SCH ×6 (04:42→20:44)
[2018-05-27] MEDS: Furosemide 20 MG Tab PO SCH ×3 (07:58→17:07)
[2018-05-27] MEDS: Sodium Chloride 1 GM Tab PO SCH ×3 (07:58→17:07)
[2018-05-27] MEDS: Lisinopril 20 MG Tab PO SCH ×2 (07:59→20:43)
[2018-05-27] MEDS: Baclofen 10 MG Tab PO SCH ×4 (07:59→20:43)
[2018-05-27] MEDS: Multivitamin Tab PO SCH (07:59)
[2018-05-27] MEDS: Famotidine 20 MG Tab PO SCH ×2 (07:59→20:42)
[2018-05-27] MEDS: Potassium Chloride 10 MEQ Tab.ER PO SCH ×3 (07:59→17:07)
[2018-05-27] MEDS: Fluconazole 100 MG Tab PO SCH (07:59)
[2018-05-27] MEDS: guanFACINE 1 MG Tab PO SCH ×2 (07:59→20:42)
[2018-05-27] MEDS: Ascorbic Acid 500 MG Tab PO SCH ×4 (07:59→20:41)
[2018-05-27] MEDS: Nystatin Crm 30 GM Tube TOP SCH ×2 (08:00→20:43)
[2018-05-27] MEDS: Nystatin Topical Powder 15 GM Bottle TOP SCH (08:00)
[2018-05-27] MEDS: Nystatin Crm 30 GM Tube TOP PRN (08:46)
[2018-05-27] MEDS: Levofloxacin/Dextrose 5%-Water 500 MG in Premix Bag 1 BAG IV SCH (12:19)
[2018-05-27] MEDS: Gabapentin 100 MG Cap PO SCH (20:42)
[2018-05-27] MEDS: Escitalopram 20 MG Tab PO SCH (20:43)
[2018-05-28] MEDS: Calcium Carbonate 750 MG Tab.Chew PO PRN ×2 (03:46→22:25)
[2018-05-28] MEDS: cefTAZidime 1 GM Vial IVPUSH SCH ×3 (05:33→20:02)
[2018-05-28] MEDS: Sodium Chloride 0.9% 10 ML Syringe FLUSH SCH ×6 (05:34→22:27)
[2018-05-28 08:17] LABS: CHLORIDE,CL 95 mmol/L (98-107); SODIUM,NA 132 mmol/L (136-145)
[2018-05-28] MEDS: Famotidine 20 MG Tab PO SCH ×2 (08:34→19:58)
[2018-05-28] MEDS: Sodium Chloride 1 GM Tab PO SCH ×3 (08:34→17:01)
[2018-05-28] MEDS: Ascorbic Acid 500 MG Tab PO SCH ×4 (08:35→19:59)
[2018-05-28] MEDS: Furosemide 20 MG Tab PO SCH ×3 (08:35→17:02)
[2018-05-28] MEDS: guanFACINE 1 MG Tab PO SCH ×2 (08:35→19:57)
[2018-05-28] MEDS: Multivitamin Tab PO SCH (08:36)
[2018-05-28] MEDS: Lisinopril 20 MG Tab PO SCH ×2 (08:36→19:56)
[2018-05-28] MEDS: Baclofen 10 MG Tab PO SCH ×4 (08:36→19:58)
[2018-05-28] MEDS: Fluconazole 100 MG Tab PO SCH (08:37)
[2018-05-28] MEDS: Potassium Chloride 10 MEQ Tab.ER PO SCH ×3 (08:37→17:03)
[2018-05-28] MEDS: Nystatin Crm 30 GM Tube TOP SCH ×2 (08:38→20:00)
[2018-05-28] MEDS: Nystatin Topical Powder 15 GM Bottle TOP SCH (08:38)
[2018-05-28] MEDS: Levofloxacin/Dextrose 5%-Water 500 MG in Premix Bag 1 BAG IV SCH (12:13)
[2018-05-28] MEDS: Sodium Chloride 0.9% 10 ML Syringe FLUSH PRN (12:14)
[2018-05-28] MEDS: Gabapentin 100 MG Cap PO SCH (19:59)
[2018-05-28] MEDS: Escitalopram 20 MG Tab PO SCH (19:59)
[2018-05-28] MEDS: Temazepam 15 MG Cap PO PRN (22:24)
[2018-05-29] MEDS: cefTAZidime 1 GM Vial IVPUSH SCH ×3 (06:08→20:00)
[2018-05-29] MEDS: Sodium Chloride 0.9% 10 ML Syringe FLUSH SCH ×6 (06:08→21:35)
[2018-05-29] MEDS: Multivitamin Tab PO SCH (08:17)
[2018-05-29] MEDS: Fluconazole 100 MG Tab PO SCH (08:17)
[2018-05-29] MEDS: Furosemide 20 MG Tab PO SCH ×3 (08:18→17:49)
[2018-05-29] MEDS: Baclofen 10 MG Tab PO SCH ×4 (08:18→20:00)
[2018-05-29] MEDS: Potassium Chloride 10 MEQ Tab.ER PO SCH ×3 (08:18→17:50)
[2018-05-29] MEDS: Lisinopril 20 MG Tab PO SCH ×2 (08:18→20:00)
[2018-05-29] MEDS: Nystatin Crm 30 GM Tube TOP SCH ×2 (08:20→20:02)
[2018-05-29] MEDS: Famotidine 20 MG Tab PO SCH ×2 (08:20→20:00)
[2018-05-29] MEDS: Nystatin Topical Powder 15 GM Bottle TOP SCH (08:20)
[2018-05-29] MEDS: Ascorbic Acid 500 MG Tab PO SCH ×4 (08:20→20:00)
[2018-05-29] MEDS: guanFACINE 1 MG Tab PO SCH ×2 (08:20→19:57)
[2018-05-29] MEDS: Sodium Chloride 1 GM Tab PO SCH ×3 (08:20→17:49)
[2018-05-29] MEDS: Calcium Carbonate 750 MG Tab.Chew PO PRN ×2 (12:19→18:11)
[2018-05-29] MEDS: Levofloxacin/Dextrose 5%-Water 500 MG in Premix Bag 1 BAG IV SCH (12:19)
[2018-05-29] MEDS: Sodium Chloride 0.9% 10 ML Syringe FLUSH PRN ×2 (13:27→21:34)
[2018-05-29] MEDS: Escitalopram 20 MG Tab PO SCH (20:00)
[2018-05-29] MEDS: Gabapentin 100 MG Cap PO SCH (20:00)
[2018-05-30] MEDS: Calcium Carbonate 750 MG Tab.Chew PO PRN ×3 (05:58→13:45)
[2018-05-30] MEDS: cefTAZidime 1 GM Vial IVPUSH SCH ×3 (05:58→20:57)
[2018-05-30] MEDS: Sodium Chloride 0.9% 10 ML Syringe FLUSH SCH ×6 (05:59→20:57)
[2018-05-30] MEDS: Potassium Chloride 10 MEQ Tab.ER PO SCH ×3 (07:39→17:59)
[2018-05-30] MEDS: Lisinopril 20 MG Tab PO SCH ×2 (07:39→20:55)
[2018-05-30] MEDS: Furosemide 20 MG Tab PO SCH ×3 (07:40→17:59)
[2018-05-30] MEDS: Multivitamin Tab PO SCH (07:40)
[2018-05-30] MEDS: Famotidine 20 MG Tab PO SCH ×2 (07:40→20:56)
[2018-05-30] MEDS: Sodium Chloride 1 GM Tab PO SCH ×3 (07:40→17:59)
[2018-05-30] MEDS: Ascorbic Acid 500 MG Tab PO SCH ×4 (07:41→20:55)
[2018-05-30] MEDS: guanFACINE 1 MG Tab PO SCH ×2 (07:41→20:54)
[2018-05-30] MEDS: Fluconazole 100 MG Tab PO SCH (07:42)
[2018-05-30] MEDS: Baclofen 10 MG Tab PO SCH ×4 (07:42→20:56)
[2018-05-30] MEDS: Nystatin Topical Powder 15 GM Bottle TOP SCH (08:39)
[2018-05-30] MEDS: Nystatin Crm 30 GM Tube TOP SCH ×2 (08:39→20:56)
[2018-05-30] MEDS: Levofloxacin/Dextrose 5%-Water 500 MG in Premix Bag 1 BAG IV SCH (13:46)
[2018-05-30] MEDS: Sodium Chloride 0.9% 10 ML Syringe FLUSH PRN (13:56)
[2018-05-30] MEDS: Gabapentin 100 MG Cap PO SCH (20:56)
[2018-05-30] MEDS: Escitalopram 20 MG Tab PO SCH (20:56)
[2018-05-31] MEDS: cefTAZidime 1 GM Vial IVPUSH SCH ×3 (05:45→20:30)
[2018-05-31] MEDS: Sodium Chloride 0.9% 10 ML Syringe FLUSH SCH ×6 (05:45→20:31)
[2018-05-31] MEDS: Fluconazole 100 MG Tab PO SCH (07:45)
[2018-05-31] MEDS: Baclofen 10 MG Tab PO SCH ×4 (07:46→20:30)
[2018-05-31] MEDS: Famotidine 20 MG Tab PO SCH (07:46)
[2018-05-31] MEDS: Furosemide 20 MG Tab PO SCH ×3 (07:46→17:06)
[2018-05-31] MEDS: Multivitamin Tab PO SCH (07:46)
[2018-05-31] MEDS: Potassium Chloride 10 MEQ Tab.ER PO SCH ×3 (07:46→17:06)
[2018-05-31] MEDS: Ascorbic Acid 500 MG Tab PO SCH ×4 (07:47→20:28)
[2018-05-31] MEDS: Sodium Chloride 1 GM Tab PO SCH ×3 (07:47→17:06)
[2018-05-31] MEDS: Lisinopril 20 MG Tab PO SCH ×2 (07:47→20:29)
[2018-05-31] MEDS: guanFACINE 1 MG Tab PO SCH ×2 (07:47→20:28)
[2018-05-31] MEDS: Nystatin Topical Powder 15 GM Bottle TOP SCH (07:48)
[2018-05-31] MEDS: Nystatin Crm 30 GM Tube TOP SCH ×2 (07:48→20:30)
[2018-05-31] MEDS ORDERED: Pantoprazole 40 MG Tab.CR PO ONE (12:30)
[2018-05-31] MEDS: Levofloxacin/Dextrose 5%-Water 500 MG in Premix Bag 1 BAG IV SCH (13:12)
[2018-05-31] MEDS: Sodium Chloride 0.9% 10 ML Syringe FLUSH PRN (14:20)
[2018-05-31] MEDS: Escitalopram 20 MG Tab PO SCH (20:29)
[2018-05-31] MEDS: Gabapentin 100 MG Cap PO SCH (20:29)
[2018-06-01] MEDS: Aluminum Hydroxide/Magnesium Hydroxide/Simethicone Susp 30 ML Cup PO PRN (05:01)
[2018-06-01] MEDS: cefTAZidime 1 GM Vial IVPUSH SCH ×3 (05:01→20:42)
[2018-06-01] MEDS: Sodium Chloride 0.9% 10 ML Syringe FLUSH SCH ×6 (05:02→20:46)
[2018-06-01] MEDS: Fluconazole 100 MG Tab PO SCH (08:08)
[2018-06-01] MEDS: guanFACINE 1 MG Tab PO SCH ×2 (08:09→20:42)
[2018-06-01] MEDS: Potassium Chloride 10 MEQ Tab.ER PO SCH ×3 (08:10→17:39)
[2018-06-01] MEDS: Lisinopril 20 MG Tab PO SCH ×2 (08:10→20:42)
[2018-06-01] MEDS: Multivitamin Tab PO SCH (08:10)
[2018-06-01] MEDS: Baclofen 10 MG Tab PO SCH ×4 (08:11→20:42)
[2018-06-01] MEDS: Sodium Chloride 1 GM Tab PO SCH ×3 (08:11→17:40)
[2018-06-01] MEDS: Furosemide 20 MG Tab PO SCH ×3 (08:11→17:40)
[2018-06-01] MEDS: Ascorbic Acid 500 MG Tab PO SCH ×4 (08:13→20:42)
[2018-06-01] MEDS: Nystatin Topical Powder 15 GM Bottle TOP SCH (08:15)
[2018-06-01] MEDS: Nystatin Crm 30 GM Tube TOP SCH ×2 (08:20→09:00)
[2018-06-01] MEDS: Levofloxacin/Dextrose 5%-Water 500 MG in Premix Bag 1 BAG IV SCH (12:32)
[2018-06-01] MEDS: Gabapentin 100 MG Cap PO SCH (20:42)
[2018-06-01] MEDS: Pantoprazole 40 MG Tab.CR PO SCH (20:42)
[2018-06-01] MEDS: Escitalopram 20 MG Tab PO SCH (20:42)
[2018-06-02] MEDS: Sodium Chloride 0.9% 10 ML Syringe FLUSH SCH ×6 (05:50→20:38)
[2018-06-02] MEDS: cefTAZidime 1 GM Vial IVPUSH SCH ×3 (05:50→20:18)
[2018-06-02] MEDS: Fluconazole 100 MG Tab PO SCH (07:19)
[2018-06-02] MEDS: Furosemide 20 MG Tab PO SCH ×3 (07:20→17:11)
[2018-06-02] MEDS: guanFACINE 1 MG Tab PO SCH ×2 (07:20→20:15)
[2018-06-02] MEDS: Potassium Chloride 10 MEQ Tab.ER PO SCH ×3 (07:20→17:11)
[2018-06-02] MEDS: Lisinopril 20 MG Tab PO SCH ×2 (07:21→20:11)
[2018-06-02] MEDS: Baclofen 10 MG Tab PO SCH ×4 (07:21→20:17)
[2018-06-02] MEDS: Sodium Chloride 1 GM Tab PO SCH ×3 (07:22→17:11)
[2018-06-02] MEDS: Multivitamin Tab PO SCH (07:22)
[2018-06-02] MEDS: Ascorbic Acid 500 MG Tab PO SCH ×4 (07:22→20:17)
[2018-06-02] MEDS: Nystatin Crm 30 GM Tube TOP SCH (07:23)
[2018-06-02] MEDS: Nystatin Topical Powder 15 GM Bottle TOP SCH (07:24)
[2018-06-02] MEDS: Levofloxacin/Dextrose 5%-Water 500 MG in Premix Bag 1 BAG IV SCH (12:44)
[2018-06-02] MEDS: Pantoprazole 40 MG Tab.CR PO SCH (20:11)
[2018-06-02] MEDS: Escitalopram 20 MG Tab PO SCH (20:16)
[2018-06-02] MEDS: Gabapentin 100 MG Cap PO SCH (20:18)
[2018-06-03] MEDS: Sodium Chloride 0.9% 10 ML Syringe FLUSH SCH ×6 (04:06→20:48)
[2018-06-03] MEDS: cefTAZidime 1 GM Vial IVPUSH SCH ×3 (04:06→20:47)
[2018-06-03] MEDS: Potassium Chloride 10 MEQ Tab.ER PO SCH ×3 (07:52→17:11)
[2018-06-03] MEDS: Lisinopril 20 MG Tab PO SCH ×2 (07:52→20:46)
[2018-06-03] MEDS: Baclofen 10 MG Tab PO SCH ×4 (07:52→20:47)
[2018-06-03] MEDS: Sodium Chloride 1 GM Tab PO SCH ×3 (07:52→17:11)
[2018-06-03] MEDS: Ascorbic Acid 500 MG Tab PO SCH ×4 (07:53→20:46)
[2018-06-03] MEDS: Multivitamin Tab PO SCH (07:53)
[2018-06-03] MEDS: Furosemide 20 MG Tab PO SCH ×3 (07:53→17:11)
[2018-06-03] MEDS: guanFACINE 1 MG Tab PO SCH ×2 (07:53→20:46)
[2018-06-03] MEDS: Fluconazole 100 MG Tab PO SCH (07:53)
[2018-06-03] MEDS: Nystatin Topical Powder 15 GM Bottle TOP SCH (09:14)
[2018-06-03] MEDS: Nystatin Crm 30 GM Tube TOP SCH (09:14)
[2018-06-03] MEDS: Levofloxacin/Dextrose 5%-Water 500 MG in Premix Bag 1 BAG IV SCH (12:44)
[2018-06-03] MEDS: Escitalopram 20 MG Tab PO SCH (20:46)
[2018-06-03] MEDS: Gabapentin 100 MG Cap PO SCH (20:46)
[2018-06-03] MEDS: Pantoprazole 40 MG Tab.CR PO SCH (20:46)
[2018-06-04] MEDS: cefTAZidime 1 GM Vial IVPUSH SCH ×3 (05:39→20:23)
[2018-06-04] MEDS: Sodium Chloride 0.9% 10 ML Syringe FLUSH SCH ×6 (05:39→21:24)
[2018-06-04] MEDS: Fluconazole 100 MG Tab PO SCH (08:48)
[2018-06-04] MEDS: Furosemide 20 MG Tab PO SCH ×3 (08:50→17:03)
[2018-06-04] MEDS: Potassium Chloride 10 MEQ Tab.ER PO SCH ×3 (08:50→17:03)
[2018-06-04] MEDS: Baclofen 10 MG Tab PO SCH ×4 (08:50→20:23)
[2018-06-04] MEDS: guanFACINE 1 MG Tab PO SCH ×2 (08:50→20:22)
[2018-06-04] MEDS: Nystatin Topical Powder 15 GM Bottle TOP SCH (08:51)
[2018-06-04] MEDS: Nystatin Crm 30 GM Tube TOP SCH (08:51)
[2018-06-04] MEDS: Sodium Chloride 1 GM Tab PO SCH ×3 (08:52→17:02)
[2018-06-04] MEDS: Multivitamin Tab PO SCH (08:52)
[2018-06-04] MEDS: Lisinopril 20 MG Tab PO SCH ×2 (08:52→20:21)
[2018-06-04] MEDS: Ascorbic Acid 500 MG Tab PO SCH ×4 (08:52→20:22)
[2018-06-04] MEDS: Levofloxacin/Dextrose 5%-Water 500 MG in Premix Bag 1 BAG IV SCH (13:09)
[2018-06-04] MEDS: Sodium Chloride 0.9% 10 ML Syringe FLUSH PRN ×2 (14:29→20:24)
[2018-06-04] MEDS: Pantoprazole 40 MG Tab.CR PO SCH (20:22)
[2018-06-04] MEDS: Gabapentin 100 MG Cap PO SCH (20:22)
[2018-06-04] MEDS: Escitalopram 20 MG Tab PO SCH (20:23)
[2018-06-05] MEDS: cefTAZidime 1 GM Vial IVPUSH SCH ×3 (05:00→20:57)
[2018-06-05] MEDS: Sodium Chloride 0.9% 10 ML Syringe FLUSH SCH ×6 (05:00→20:57)
[2018-06-05] MEDS: guanFACINE 1 MG Tab PO SCH ×2 (08:36→20:50)
[2018-06-05] MEDS: Lisinopril 20 MG Tab PO SCH ×2 (08:36→20:51)
[2018-06-05] MEDS: Potassium Chloride 10 MEQ Tab.ER PO SCH ×3 (08:37→18:35)
[2018-06-05] MEDS: Multivitamin Tab PO SCH (08:37)
[2018-06-05] MEDS: Furosemide 20 MG Tab PO SCH ×3 (08:37→18:35)
[2018-06-05] MEDS: Baclofen 10 MG Tab PO SCH ×4 (08:37→20:54)
[2018-06-05] MEDS: Sodium Chloride 1 GM Tab PO SCH ×3 (08:37→18:35)
[2018-06-05] MEDS: Fluconazole 100 MG Tab PO SCH (08:38)
[2018-06-05] MEDS: Ascorbic Acid 500 MG Tab PO SCH ×4 (08:38→20:54)
[2018-06-05] MEDS: Nystatin Topical Powder 15 GM Bottle TOP SCH (08:39)
[2018-06-05] MEDS: Nystatin Crm 30 GM Tube TOP SCH (08:39)
[2018-06-05] MEDS: Levofloxacin/Dextrose 5%-Water 500 MG in Premix Bag 1 BAG IV SCH (12:59)
[2018-06-05] MEDS: Sodium Chloride 0.9% 10 ML Syringe FLUSH PRN (13:01)
[2018-06-05] MEDS: Gabapentin 100 MG Cap PO SCH (20:51)
[2018-06-05] MEDS: Escitalopram 20 MG Tab PO SCH (20:51)
[2018-06-05] MEDS: Pantoprazole 40 MG Tab.CR PO SCH (20:51)
[2018-06-06] MEDS: Sodium Chloride 0.9% 10 ML Syringe FLUSH SCH ×7 (05:18→20:34)
[2018-06-06] MEDS: cefTAZidime 1 GM Vial IVPUSH SCH ×3 (05:19→20:16)
[2018-06-06] MEDS: Fluconazole 100 MG Tab PO SCH (08:19)
[2018-06-06] MEDS: Baclofen 10 MG Tab PO SCH ×4 (08:20→20:11)
[2018-06-06] MEDS: Sodium Chloride 1 GM Tab PO SCH ×3 (08:20→17:10)
[2018-06-06] MEDS: Potassium Chloride 10 MEQ Tab.ER PO SCH ×3 (08:20→17:10)
[2018-06-06] MEDS: Multivitamin Tab PO SCH (08:20)
[2018-06-06] MEDS: Ascorbic Acid 500 MG Tab PO SCH ×4 (08:20→20:12)
[2018-06-06] MEDS: Furosemide 20 MG Tab PO SCH ×3 (08:21→17:11)
[2018-06-06] MEDS: Lisinopril 20 MG Tab PO SCH ×2 (08:24→20:11)
[2018-06-06] MEDS: guanFACINE 1 MG Tab PO SCH ×2 (08:25→20:11)
[2018-06-06] MEDS: Nystatin Topical Powder 15 GM Bottle TOP SCH (09:52)
[2018-06-06] MEDS: Nystatin Crm 30 GM Tube TOP PRN (09:53)
[2018-06-06] MEDS: Nystatin Crm 30 GM Tube TOP SCH (09:53)
[2018-06-06] MEDS: Levofloxacin/Dextrose 5%-Water 500 MG in Premix Bag 1 BAG IV SCH (13:16)
[2018-06-06] MEDS: Sodium Chloride 0.9% 10 ML Syringe FLUSH PRN (14:25)
[2018-06-06] MEDS: Gabapentin 100 MG Cap PO SCH (20:11)
[2018-06-06] MEDS: Escitalopram 20 MG Tab PO SCH (20:11)
[2018-06-06] MEDS: Pantoprazole 40 MG Tab.CR PO SCH (20:12)
[2018-06-07] MEDS: cefTAZidime 1 GM Vial IVPUSH SCH ×3 (05:18→20:46)
[2018-06-07] MEDS: Sodium Chloride 0.9% 10 ML Syringe FLUSH SCH ×6 (05:18→20:49)
[2018-06-07] MEDS: Ascorbic Acid 500 MG Tab PO SCH ×4 (07:04→20:45)
[2018-06-07] MEDS: Sodium Chloride 1 GM Tab PO SCH ×3 (07:04→17:55)
[2018-06-07] MEDS: Potassium Chloride 10 MEQ Tab.ER PO SCH ×3 (07:05→17:55)
[2018-06-07] MEDS: Multivitamin Tab PO SCH (07:05)
[2018-06-07] MEDS: Fluconazole 100 MG Tab PO SCH (07:08)
[2018-06-07] MEDS: Baclofen 10 MG Tab PO SCH ×4 (07:09→20:45)
[2018-06-07] MEDS: guanFACINE 1 MG Tab PO SCH ×2 (07:09→20:45)
[2018-06-07] MEDS: Furosemide 20 MG Tab PO SCH ×3 (07:10→17:55)
[2018-06-07] MEDS: Lisinopril 20 MG Tab PO SCH ×2 (07:10→20:46)
[2018-06-07] MEDS: Nystatin Crm 30 GM Tube TOP SCH (07:10)
[2018-06-07] MEDS: Nystatin Topical Powder 15 GM Bottle TOP SCH (07:11)
[2018-06-07] MEDS: Sodium Chloride 0.9% 10 ML Syringe FLUSH PRN ×3 (13:36→20:47)
[2018-06-07] MEDS: Levofloxacin/Dextrose 5%-Water 500 MG in Premix Bag 1 BAG IV SCH (13:36)
[2018-06-07] MEDS: Escitalopram 20 MG Tab PO SCH (20:45)
[2018-06-07] MEDS: Gabapentin 100 MG Cap PO SCH (20:45)
[2018-06-07] MEDS: Pantoprazole 40 MG Tab.CR PO SCH (20:46)
[2018-06-08] MEDS: Sodium Chloride 0.9% 10 ML Syringe FLUSH SCH ×6 (05:54→20:32)
[2018-06-08] MEDS: cefTAZidime 1 GM Vial IVPUSH SCH ×3 (05:54→20:28)
[2018-06-08] MEDS: Multivitamin Tab PO SCH (08:44)
[2018-06-08] MEDS: Potassium Chloride 10 MEQ Tab.ER PO SCH ×3 (08:44→18:16)
[2018-06-08] MEDS: Sodium Chloride 1 GM Tab PO SCH ×3 (08:44→18:16)
[2018-06-08] MEDS: Ascorbic Acid 500 MG Tab PO SCH ×4 (08:44→20:25)
[2018-06-08] MEDS: Fluconazole 100 MG Tab PO SCH (08:44)
[2018-06-08] MEDS: Baclofen 10 MG Tab PO SCH ×4 (08:45→20:25)
[2018-06-08] MEDS: Nystatin Topical Powder 15 GM Bottle TOP SCH (08:47)
[2018-06-08] MEDS: Nystatin Crm 30 GM Tube TOP SCH (08:48)
[2018-06-08] MEDS: guanFACINE 1 MG Tab PO SCH (09:13)
[2018-06-08] MEDS: Lisinopril 20 MG Tab PO SCH ×2 (09:14→20:21)
[2018-06-08] MEDS: Furosemide 20 MG Tab PO SCH ×2 (09:14→20:27)
[2018-06-08] MEDS: Levofloxacin/Dextrose 5%-Water 500 MG in Premix Bag 1 BAG IV SCH (12:55)
[2018-06-08] MEDS: Calcium Carbonate 750 MG Tab.Chew PO PRN (14:07)
[2018-06-08] MEDS: Aluminum Hydroxide/Magnesium Hydroxide/Simethicone Susp 30 ML Cup PO PRN (15:21)
[2018-06-08] MEDS: Pantoprazole 40 MG Tab.CR PO SCH (20:21)
[2018-06-08] MEDS: Escitalopram 20 MG Tab PO SCH (20:24)
[2018-06-08] MEDS: Gabapentin 100 MG Cap PO SCH (20:27)
[2018-06-09] MEDS: Sodium Chloride 0.9% 10 ML Syringe FLUSH SCH ×5 (05:27→20:42)
[2018-06-09] MEDS: cefTAZidime 1 GM Vial IVPUSH SCH ×3 (05:27→20:41)
[2018-06-09] MEDS: Potassium Chloride 10 MEQ Tab.ER PO SCH ×3 (07:45→17:03)
[2018-06-09] MEDS: Furosemide 20 MG Tab PO SCH ×2 (07:46→20:42)
[2018-06-09] MEDS: Fluconazole 100 MG Tab PO SCH (07:46)
[2018-06-09] MEDS: Ascorbic Acid 500 MG Tab PO SCH ×4 (07:47→20:43)
[2018-06-09] MEDS: Sodium Chloride 1 GM Tab PO SCH ×3 (07:47→17:03)
[2018-06-09] MEDS: Lisinopril 20 MG Tab PO SCH ×2 (07:48→20:42)
[2018-06-09] MEDS: Baclofen 10 MG Tab PO SCH ×4 (07:48→20:39)
[2018-06-09] MEDS: Multivitamin Tab PO SCH (07:48)
[2018-06-09] MEDS: Nystatin Crm 30 GM Tube TOP PRN (07:49)
[2018-06-09] MEDS: Nystatin Topical Powder 15 GM Bottle TOP SCH (07:49)
[2018-06-09] MEDS: Nystatin Crm 30 GM Tube TOP SCH (07:52)
[2018-06-09] MEDS: Aluminum Hydroxide/Magnesium Hydroxide/Simethicone Susp 30 ML Cup PO PRN ×2 (11:43→20:48)
[2018-06-09] MEDS: Levofloxacin/Dextrose 5%-Water 500 MG in Premix Bag 1 BAG IV SCH (12:41)
[2018-06-09] MEDS: Sodium Chloride 0.9% 10 ML Syringe FLUSH PRN (13:01)
[2018-06-09] MEDS: Pantoprazole 40 MG Tab.CR PO SCH (20:38)
[2018-06-09] MEDS: Gabapentin 100 MG Cap PO SCH (20:42)
[2018-06-09] MEDS: Escitalopram 20 MG Tab PO SCH (20:43)
[2018-06-10] MEDS: cefTAZidime 1 GM Vial IVPUSH SCH ×3 (05:15→20:20)
[2018-06-10] MEDS: Calcium Carbonate 750 MG Tab.Chew PO PRN ×2 (05:15→20:22)
[2018-06-10] MEDS: Sodium Chloride 0.9% 10 ML Syringe FLUSH SCH ×6 (05:16→20:20)
[2018-06-10] MEDS: Multivitamin Tab PO SCH (08:25)
[2018-06-10] MEDS: Sodium Chloride 1 GM Tab PO SCH ×3 (08:25→17:45)
[2018-06-10] MEDS: Baclofen 10 MG Tab PO SCH ×4 (08:25→20:20)
[2018-06-10] MEDS: Potassium Chloride 10 MEQ Tab.ER PO SCH ×3 (08:26→17:45)
[2018-06-10] MEDS: Fluconazole 100 MG Tab PO SCH (08:26)
[2018-06-10] MEDS: Furosemide 20 MG Tab PO SCH ×2 (08:26→20:22)
[2018-06-10] MEDS: Ascorbic Acid 500 MG Tab PO SCH ×4 (08:27→20:22)
[2018-06-10] MEDS: Lisinopril 20 MG Tab PO SCH ×2 (08:27→20:21)
[2018-06-10] MEDS: Nystatin Topical Powder 15 GM Bottle TOP SCH (08:49)
[2018-06-10] MEDS: Nystatin Crm 30 GM Tube TOP SCH (08:50)
[2018-06-10] MEDS: Levofloxacin/Dextrose 5%-Water 500 MG in Premix Bag 1 BAG IV SCH (12:30)
[2018-06-10] MEDS: Aluminum Hydroxide/Magnesium Hydroxide/Simethicone Susp 30 ML Cup PO PRN (12:46)
[2018-06-10] MEDS: Simethicone 125 MG Tab.Chew PO PRN (18:03)
[2018-06-10] MEDS: Pantoprazole 40 MG Tab.CR PO SCH (20:21)
[2018-06-10] MEDS: Gabapentin 100 MG Cap PO SCH (20:21)
[2018-06-10] MEDS: Escitalopram 20 MG Tab PO SCH (20:21)
[2018-06-11] MEDS: Sodium Chloride 0.9% 10 ML Syringe FLUSH SCH ×6 (02:26→21:04)
[2018-06-11] MEDS: Sodium Chloride 0.9% 10 ML Syringe FLUSH PRN ×2 (07:31→19:35)
[2018-06-11 08:05] LABS: CHLORIDE,CL 98 mmol/L (98-107); SODIUM,NA 135 mmol/L (136-145)
[2018-06-11] MEDS: Multivitamin Tab PO SCH (08:40)
[2018-06-11] MEDS: Ascorbic Acid 500 MG Tab PO SCH ×4 (08:40→19:35)
[2018-06-11] MEDS: Lisinopril 20 MG Tab PO SCH ×2 (08:40→19:34)
[2018-06-11] MEDS: Baclofen 10 MG Tab PO SCH ×4 (08:40→19:35)
[2018-06-11] MEDS: Fluconazole 100 MG Tab PO SCH (08:41)
[2018-06-11] MEDS: Sodium Chloride 1 GM Tab PO SCH ×3 (08:41→17:08)
[2018-06-11] MEDS: Potassium Chloride 10 MEQ Tab.ER PO SCH ×3 (08:41→17:08)
[2018-06-11] MEDS: Furosemide 20 MG Tab PO SCH (08:42)
[2018-06-11] MEDS: Nystatin Topical Powder 15 GM Bottle TOP SCH (08:43)
[2018-06-11] MEDS: Nystatin Crm 30 GM Tube TOP PRN (08:43)
[2018-06-11] MEDS: Nystatin Crm 30 GM Tube TOP SCH (08:44)
[2018-06-11] MEDS: Simethicone 125 MG Tab.Chew PO PRN ×2 (08:55→16:07)
[2018-06-11] MEDS: Calcium Carbonate 750 MG Tab.Chew PO PRN (11:24)
[2018-06-11] MEDS: Acetaminophen 325 MG Tab PO PRN ×2 (17:07→21:02)
[2018-06-11] MEDS: LORazepam 0.5 MG Tab PO PRN (19:34)
[2018-06-11] MEDS: Pantoprazole 40 MG Tab.CR PO SCH (19:35)
[2018-06-11] MEDS: Gabapentin 100 MG Cap PO SCH (19:35)
[2018-06-11] MEDS: Escitalopram 20 MG Tab PO SCH (19:35)
--- NOTE | 2018-06-11 19:50 | PCM.PN ---
- General Info Date of Service: 06/11/18 Admission Dx/Problem (Free Text): Admission Diagnosis/Problem Admission Diagnosis/Problem Urinary tract infection Functional Status: Reports: Tolerating Diet - Review of Systems General: Reports: No Symptoms HEENT: Reports: Headaches Pulmonary: Reports: No Symptoms Cardiovascular: Reports: No Symptoms Gastrointestinal: Reports: Other (gaseous stomach) Genitourinary: Reports: Other (neurogenic bladder, supra-pubic catheter) Musculoskeletal: Reports: Other (muscle spasms) Skin: Reports: Rash, Other (petichiae) Neurological: Reports: Pre-Existing Deficit Psychiatric: Reports: No Symptoms - Patient Data Vitals - Most Recent: Last Vital Signs Temp 98.0 F 06/11/18 08:00 Pulse 57 L 06/11/18 19:19 Resp 16 06/11/18 19:19 BP 153/77 H 06/11/18 19:19 Pulse Ox 94 L 06/11/18 19:19 Weight - Most Recent: 226 lb 8 oz I&O - Last 24 Hours: Intake & Output 06/11/18 06/11/18 06/11/18 06:59 14:59 22:59 Intake Total 1470 840 Output Total 1000 1000 Balance -1000 1470 -160 Lab Results Last 24 Hours: Laboratory Results - last 24 hr 06/11/18 06/11/18 06/11/18 Range/Units 07:30 07:30 07:30 WBC 4.0 (4.0-10.2) K/uL RBC 4.13 L (4.33-5.41) M/uL Hgb 12.0 L (13.1-16.8) g/dL Hct 35.8 L (39.0-49.0) % MCV 86.7 (84.0-98.0) fL MCH 29.1 (28.2-33.3) pg MCHC 33.5 (31.7-36.0) g/dL RDW 18.3 H (11.2-14.1) % Plt Count 35 L* (150-350) K/uL Neut % (Auto) 69.4 (45.0-80.0) % Lymph % (Auto) 18.8 (10.0-50.0) % [place] % (Auto) 9.5 (2.0-14.0) % Eos % (Auto) 2.0 (0.0-5.0) % Baso % (Auto) 0.3 (0.0-2.0) % Neut # (Auto) 2.78 (1.40-7.00) K/uL Lymph # (Auto) 0.75 (0.50-3.50) K/uL [place] # (Auto) 0.38 (0.00-1.00) K/uL Eos # (Auto) 0.08 (0.00-0.50) K/uL Baso # (Auto) 0.01 (0.00-0.20) K/uL Sodium 135 L (136-145) mmol/L Potassium 4.2 (3.5-5.1) mmol/L Chloride 98 (98-107) mmol/L Carbon Dioxide 30.5 (21.0-32.0) mmol/L BUN 14 (7-18) mg/dL Creatinine 0.26 L (0.51-1.17) mg/dL Est Cr Clr Drug Dosing 371.60 mL/min Estimated GFR (MDRD) > 60 mL/min Glucose 140 H (74-106) mg/dL POC Glucose (65-110) mg/dl Calcium 8.4 L (8.5-10.1) mg/dL Total Bilirubin 0.6 (0.2-1.0) mg/dL AST 21 (15-37) U/L ALT 32 (12-78) U/L Alkaline Phosphatase 50 (46-116) IU/L C-Reactive Protein 2.3 H (<=0.9) mg/dL Total Protein 7.1 (6.4-8.2) g/dL Albumin 3.1 L (3.4-5.0) g/dL Specimen Type Urinsp Urine Color Yellow Urine Appearance Slightly cloudy Urine pH 6.5 (5.0-9.0) Ur Specific [place] 1.020 (1.005-1.030) Urine Protein Trace H (NEGATIVE) mg/dL Urine Glucose (UA) Negative (NEGATIVE) mg/dL Urine Ketones Negative (NEGATIVE) mg/dL Urine Occult Blood Small H (NEGATIVE) Urine Nitrite Negative (NEGATIVE) Urine Bilirubin Negative (NEGATIVE) Urine Urobilinogen 0.2 (0.2-1.0) E.U./dL Ur Leukocyte Esterase Large H (NEGATIVE) Urine RBC 5-10 H /HPF Urine WBC 30-40 H /HPF Ur Epithelial Cells Few /LPF Amorphous Sediment Few (0/HPF) /HPF Urine Bacteria Moderate H (NONE TO FEW) /HPF Urine Yeast Many H (NEGATIVE) /HPF 06/11/18 06/11/18 Range/Units 07:30 17:12 WBC (4.0-10.2) K/uL RBC (4.33-5.41) M/uL Hgb (13.1-16.8) g/dL Hct (39.0-49.0) % MCV (84.0-98.0) fL MCH (28.2-33.3) pg MCHC (31.7-36.0) g/dL RDW (11.2-14.1) % Plt Count (150-350) K/uL Neut % (Auto) (45.0-80.0) % Lymph % (Auto) (10.0-50.0) % [place] % (Auto) (2.0-14.0) % Eos % (Auto) (0.0-5.0) % Baso % (Auto) (0.0-2.0) % Neut # (Auto) (1.40-7.00) K/uL Lymph # (Auto) (0.50-3.50) K/uL [place] # (Auto) (0.00-1.00) K/uL Eos # (Auto) (0.00-0.50) K/uL Baso # (Auto) (0.00-0.20) K/uL Sodium (136-145) mmol/L Potassium (3.5-5.1) mmol/L Chloride (98-107) mmol/L Carbon Dioxide (21.0-32.0) mmol/L BUN (7-18) mg/dL Creatinine (0.51-1.17) mg/dL Est Cr Clr Drug Dosing mL/min Estimated GFR (MDRD) mL/min Glucose (74-106) mg/dL POC Glucose 121 H 119 H (65-110) mg/dl Calcium (8.5-10.1) mg/dL Total Bilirubin (0.2-1.0) mg/dL AST (15-37) U/L ALT (12-78) U/L Alkaline Phosphatase (46-116) IU/L C-Reactive Protein (<=0.9) mg/dL Total Protein (6.4-8.2) g/dL Albumin (3.4-5.0) g/dL Specimen Type Urine Color Urine Appearance Urine pH (5.0-9.0) Ur Specific Mio (1.005-1.030) Urine Protein (NEGATIVE) mg/dL Urine Glucose (UA) (NEGATIVE) mg/dL Urine Ketones (NEGATIVE) mg/dL Urine Occult Blood (NEGATIVE) Urine Nitrite (NEGATIVE) Urine Bilirubin (NEGATIVE) Urine Urobilinogen (0.2-1.0) E.U./dL Ur Leukocyte Esterase (NEGATIVE) Urine RBC /HPF Urine WBC /HPF Ur Epithelial Cells /LPF Amorphous Sediment (0/HPF) /HPF Urine Bacteria (NONE TO FEW) /HPF Urine Yeast (NEGATIVE) /HPF Med Orders - Current: Current Medications Acetaminophen (Tylenol) 650 mg PO Q6HR PRN PRN Reason: Pain Last Admin: 06/11/18 17:07 Dose: 650 mg Al Hydroxide/Mg Hydroxide (Mag-Al Plus) 30 ml PO Q4H PRN PRN Reason: GI upset Last Admin: 06/10/18 12:46 Dose: 30 ml Artificial Tears (Liquitears 1.4% Ophth Soln) 0 ml EYEBOTH Q1H PRN PRN Reason: Dry Eyes Ascorbic Acid (Vitamin C) 1,000 mg PO QID [facility] Last Admin: 06/11/18 19:35 Dose: 1,000 mg Baclofen (Lioresal) 20 mg PO QID [facility] Last Admin: 06/11/18 19:35 Dose: 20 mg Calcium Carbonate/Glycine (Tums Extra Strength) 750 mg PO Q2HR PRN PRN Reason: Indigestion Last Admin: 06/11/18 11:24 Dose: 750 mg [place] Tar (Thera-Gel) 0 ml TOP ASDIRECTED PRN PRN Reason: dry skin Escitalopram Oxalate (Lexapro) 20 mg PO DAILY@1999 [facility] Last Admin: 06/11/18 19:35 Dose: 20 mg Fluconazole (Diflucan) 100 mg PO DAILY [facility] Furosemide (Lasix) 20 mg IVPUSH Q8H [facility] Gabapentin (Neurontin) 100 mg PO BEDTIME [facility] Last Admin: 06/11/18 19:35 Dose: 100 mg Heparin Sodium (Porcine) (Heparin Lock Flush 100 Units/Ml) 300 units FLUSH ASDIRECTED PRN PRN Reason: KEEP LINE PATENT Last Admin: 06/11/18 07:32 Dose: 300 units Heparin Sodium (Porcine) (Heparin Lock Flush 100 Units/Ml) 300 units FLUSH TID@ 0530,1400,2130 [facility] Last Admin: 06/11/18 16:06 Dose: Not Given Lisinopril (Prinivil) 20 mg PO Q12HR [facility] Last Admin: 06/11/18 19:34 Dose: 20 mg Lorazepam (Ativan) 0.5 mg PO BEDTIME PRN PRN Reason: Insomnia Last Admin: 06/11/18 19:34 Dose: 0.5 mg Metformin HCl (Glucophage) 850 mg PO BIDMEALS [facility] Last Admin: 06/11/18 17:08 Dose: 850 mg Multivitamins/Minerals/Vitamin C (Tab-A-Sara) 1 tab PO DAILY [facility] Last Admin: 06/11/18 08:40 Dose: 1 tab Nystatin (Nystatin Crm) 0 gm TOP TID PRN PRN Reason: Rash Last Admin: 06/11/18 08:43 Dose: 1 applic Nystatin (Nystop) 0 gm TOP DAILY [facility] Last Admin: 06/11/18 08:43 Dose: 1 applic Nystatin (Nystatin Crm) 0 gm TOP DAILY [facility] Last Admin: 06/11/18 08:44 Dose: 1 applic Pantoprazole Sodium (Protonix) 40 mg PO BEDTIME [facility] Last Admin: 06/11/18 19:35 Dose: 40 mg Potassium Chloride (Klor-Con 10) 10 meq PO BID [facility] Simethicone (Simethicone) 125 mg PO QID PRN PRN Reason: gas pain Last Admin: 06/11/18 16:07 Dose: 125 mg Sodium Chloride (Sodium Chloride) 1 gm PO TID [facility] Last Admin: 06/11/18 17:08 Dose: 1 gm Sodium Chloride (Saline Flush) 10 ml FLUSH ASDIRECTED PRN PRN Reason: Keep Vein Open Last Admin: 06/11/18 19:35 Dose: 10 ml Sodium Chloride (Saline Flush) 10 ml FLUSH TID@0500,1300,2100 [facility] Last Admin: 06/11/18 16:06 Dose: Not Given Sodium Chloride (Saline Flush) 10 ml FLUSH TID@0530,1330,2130 [facility] Last Admin: 06/11/18 16:06 Dose: Not Given Temazepam (Restoril) 15 mg PO BEDTIME PRN PRN Reason: Insomnia Last Admin: 05/28/18 22:24 Dose: 15 mg Triamcinolone Acetonide (Triamcinolone Acetonide 0.5%) 0 gm TOP BID PRN PRN Reason: Rash Discontinued Medications Alteplase, Recombinant (Cathflo Activase) 2 mg IVPUSH ONETIME ONE Stop: 05/14/18 20:03 Last Admin: 05/14/18 21:14 Dose: 2 mg Ceftazidime (Fortaz) 1 gm IVPUSH Q8H [facility] Stop: 06/06/18 13:01 Last Admin: 06/06/18 13:16 Dose: 1 gm Ceftazidime (Fortaz) 1 gm IVPUSH Q8H [facility] Stop: 06/10/18 21:01 Last Admin: 06/10/18 20:20 Dose: 1 gm Famotidine (Pepcid) 20 mg PO QPM [facility] Last Admin: 05/16/18 17:10 Dose: 20 mg Famotidine (Pepcid) 20 mg PO Q12HR [facility] Last Admin: 05/31/18 07:46 Dose: 20 mg Fluconazole (Diflucan) 100 mg PO DAILY [facility] Last Admin: 05/23/18 08:16 Dose: 100 mg Fluconazole (Diflucan) 100 mg PO Q2D@0800 [facility] Fluconazole (Diflucan) 50 mg PO DAILY [facility] Last Admin: 06/11/18 08:41 Dose: 50 mg Furosemide (Lasix) 20 mg PO TID [facility] Last Admin: 06/08/18 09:14 Dose: Not Given Furosemide (Lasix) 20 mg PO Q12HR [facility] Last Admin: 06/11/18 08:42 Dose: 20 mg Gentamicin Sulfate (Gentamicin 0.1%) 0 gm TOP Q12HR [facility] Last Admin: 05/18/18 08:29 Dose: 1 applic Guanfacine HCl (Guanfacine) 1 mg PO QAM [facility] Last Admin: 06/08/18 09:13 Dose: Not Given Guanfacine HCl (Guanfacine) 2 mg PO BEDTIME [facility] Last Admin: 06/07/18 20:45 Dose: Not Given Heparin Sodium (Porcine) (Heparin Lock Flush 100 Units/Ml) 300 units FLUSH Q12HR [facility] Last Admin: 05/15/18 10:46 Dose: 300 units Heparin Sodium (Porcine) (Heparin Lock Flush 100 Units/Ml) 300 units FLUSH Q12H [facility] Last Admin: 05/23/18 11:26 Dose: 300 units Vancomycin HCl 1.5 gm/ Sodium (Chloride) 500 mls @ 220 mls/hr IV Q12H [facility] Stop: 05/11/18 10:00 Last Admin: 05/11/18 08:43 Dose: 220 mls/hr Vancomycin HCl 1.25 gm/ Sodium (Chloride) 250 mls @ 135 mls/hr IV Q12H [facility] Last Admin: 05/16/18 09:58 Dose: Not Given Vancomycin HCl 1.25 gm/ Sodium (Chloride) 250 mls @ 135 mls/hr IV Q24H [facility] Last Admin: 05/18/18 20:30 Dose: 135 mls/hr Vancomycin HCl 1 gm/ Sodium (Chloride) 250 mls @ 165 mls/hr IV Q24H [facility] Vancomycin HCl 1 gm/ Sodium (Chloride) 250 mls @ 165 mls/hr IV Q24H [facility] Last Admin: 05/20/18 21:24 Dose: 165 mls/hr Vancomycin HCl 1.25 gm/ Sodium (Chloride) 250 mls @ 170 mls/hr IV Q24H [facility] Last Admin: 05/22/18 20:52 Dose: 170 mls/hr Levofloxacin/Dextrose 500 mg/ (Premix) 100 mls @ 100 mls/hr IV Q24H [facility] Stop: 06/06/18 13:01 Last Admin: 06/06/18 13:16 Dose: 100 mls/hr Levofloxacin/Dextrose 500 mg/ (Premix) 100 mls @ 100 mls/hr IV Q24H [facility] Stop: 06/10/18 13:59 Last Admin: 06/10/18 12:30 Dose: 100 mls/hr Lorazepam (Ativan) 1 mg PO BEDTIME PRN PRN Reason: Insomnia Last Admin: 05/18/18 22:47 Dose: 1 mg Nystatin (Nystatin Crm) 0 gm TOP BID@799,1999 [facility] Last Admin: 05/19/18 07:43 Dose: 1 applic Nystatin (Nystop) 0 gm TOP BID@ [facility] Last Admin: 05/19/18 07:48 Dose: Not Given Nystatin (Nystatin Crm) 0 gm TOP 08,20 [facility] Last Admin: 06/01/18 09:00 Dose: 1 applic Pantoprazole Sodium (Protonix) 40 mg PO ONETIME ONE Stop: 05/31/18 12:31 Last Admin: 05/31/18 13:10 Dose: 40 mg Potassium Chloride (Klor-Con 10) 20 meq PO TID@0800,1200,1800 [facility] Last Admin: 06/11/18 17:08 Dose: 20 meq Sodium Chloride (Saline Flush) 10 ml FLUSH Q12H [facility] Last Admin: 05/23/18 11:26 Dose: 10 ml Sodium Chloride (Saline Flush) 10 ml FLUSH Q12H [facility] Last Admin: 05/23/18 11:29 Dose: 10 ml Vancomycin HCl (Pharmacy To Dose - Vancomycin) 1 dose .XX ASDIRECTED [facility] - Exam Quality Assessment: Central Line/PICC, Urine Catheter (supra-pubic) General: Alert, Cooperative, No Acute Distress HEENT: Pupils Equal, Pupils Reactive, Mucous Membr. Moist/[place] Neck: Trachea Midline, No JVD Lungs: Clear to Auscultation, Normal Respiratory Effort Cardiovascular: Regular Rate, Regular Rhythm GI/Abdominal Exam: Soft, Non-Tender (Male) Exam: Other (scrotal edema) Back Exam: Normal Inspection Extremities: Pedal Edema, Redness, Other (rash) Skin: Rash, Other (petichiae left upper extremity) Neurological: Other (pre-existing deficit) Psy/Mental Status: Alert, Normal Affect, Normal Mood - Problem List & Annotations (1) Anemia SNOMED Code(s): 182533406 Code(s): D64.9 - ANEMIA, UNSPECIFIED Status: Acute Priority: Medium Current Visit: No (2) Blurred vision SNOMED Code(s): 737132258 Code(s): H53.8 - OTHER VISUAL DISTURBANCES Status: Acute Priority: Medium Current Visit: No Onset Date: Unknown Annotation/Comment:: Did have Optometry evaluation in the home which found lb cataracts, and "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 (3) Candidiasis SNOMED Code(s): 99000749 Code(s): B37.9 - CANDIDIASIS, UNSPECIFIED Status: Acute Priority: Medium Current Visit: No (4) Dermatitis SNOMED Code(s): 47253755 Code(s): L30.9 - DERMATITIS, UNSPECIFIED Status: Acute Priority: Medium Current Visit: No (5) Edema extremities SNOMED Code(s): 446398169 Code(s): R60.0 - LOCALIZED EDEMA Status: Acute Current Visit: No (6) Fatigue SNOMED Code(s): 75917178 Code(s): R53.83 - OTHER FATIGUE Status: Acute Priority: Medium Current Visit: No Qualifiers: Fatigue type: chronic, unspecified Qualified Code(s): R53.82 - Chronic fatigue, unspecified Annotation/Comment:: Extreme fatigue past couple months. (7) UTI (urinary tract infection) SNOMED Code(s): 16864300 Code(s): N39.0 - URINARY TRACT INFECTION, SITE NOT SPECIFIED Status: Acute Priority: High Current Visit: No Qualifiers: Urinary tract infection type: catheter-associated UTI Encounter type: subsequent encounter (8) Acquired thrombocytopenia SNOMED Code(s): 36316965 Code(s): D69.59 - OTHER SECONDARY THROMBOCYTOPENIA Status: Chronic Priority: Medium Current Visit: No (9) Diabetes mellitus type 2 SNOMED Code(s): 56220144 Code(s): E11.9 - TYPE 2 DIABETES MELLITUS WITHOUT COMPLICATIONS Status: Chronic Priority: Medium Current Visit: No (10) HTN, Secondary hypertension SNOMED Code(s): 61053982 Code(s): I15.9 - SECONDARY HYPERTENSION, UNSPECIFIED Status: Chronic Priority: Medium Current Visit: No (11) Headache SNOMED Code(s): 40271540 Code(s): R51 - HEADACHE Status: Chronic Priority: Medium Current Visit : No Onset Date: Unknown Qualifiers: Headache type: other headache syndrome Qualified Code(s): G44.89 - Other headache syndrome Annotation/Comment:: h/o BORJA associated with recurrent UTI's but worsening. 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 SNOMED Code(s): 29383390 Code(s): G82.52 - QUADRIPLEGIA, C1-C4 INCOMPLETE Status: Chronic Priority : Medium Current Visit: No (14) Neurogenic bladder SNOMED Code(s): 986024817 Code(s): N31.9 - NEUROMUSCULAR DYSFUNCTION OF BLADDER, UNSPECIFIED Status: Chronic Priority: Medium Current Visit: No (15) Peptic ulcer SNOMED Code(s): 61363059 Code(s): K27.9 - PEPTIC ULC, SITE UNSP, UNSP AC OR CHR, W/O HEMOR OR PERF Status: Chronic Priority: Medium Current Visit: No (16) Quadriplegia following spinal cord injury SNOMED Code(s): 17006104 Code(s): G82.50 - QUADRIPLEGIA, UNSPECIFIED Status: Chronic Priority: High Current Visit: No - Problem List Review Problem List Initiated/Reviewed/Updated: Yes - My Orders Last 24 Hours: My Active Orders 06/11/18 19:35 CULTURE URINE [RM] Routine URINALYSIS W/MICROSCOPIC [UA W/MICROSCOPIC] [URIN] Routine 06/11/18 20:00 Furosemide [Lasix] 20 mg IVPUSH Q8H 06/12/18 05:11 BASIC METABOLIC PANEL,BMP [CHEM] Routine CBC WITH AUTO DIFF [HEME] Routine CRP [C-REACTIVE PROTEIN] [CHEM] Routine 06/12/18 08:00 Fluconazole [Diflucan] 100 mg PO DAILY Potassium Chloride [Klor-Con 10] 10 meq PO BID - Plan Plan:: 05-10-18 Chidi Nagy PA-C Patient transferred to [facility] for continued IV antibiotics and monitoring of VS. Dr. Delong is seeing today for consult regarding the thickening in the colon wall near in the rectal area. After discussion with Dr. Delong I ordered Fleets enema x 2 and made pt. npo until after a planned limited colonoscope at the end of Dr. Delong' day. I will return later to excise and cauterize the excess granulation tissue that chronically develops at the insertion site of the suprapubic catheter. 05-17-18 Chidi Nagy PA-C Patient clinically improving. BP's have stabilized, and he no longer has the headache and extreme fatigue that appeared to be symptoms of UTI for him. I reviewed the Echo results with him from 05-15, which found an ejection fraction of 45-50% (mildly reduced). I did cauterize the excess granulation tissue that has historically developed at the insertion site of the suprapubic catheter. 05-24-18 Chidi Nagy PA-C Patient did grow out a different organism in recent urine culture so is now on Levaquin and Fortaz rather than the Vancomycin (Pseudomonas aeruginosa). He was becoming symptomatic and urine was developing sediment and pus in the tubing. Long discussion held regarding his fears and concerns regarding his future. He very much wants to return home with his , and that is our goal as well. He does think the Lexapro is already starting to help a little, and encouragement is offered that this is a good indicator that this will be a good medicine for him the longer he is on it. 06/11/18 Yahaira Israel MD Still not feeling the best. Now significant body edema (anasarca) and especially the lower extremities and scrotum. He needs IV lasix, monitoring of kidney function, potassium and sodium. Supra catheter tube will be changed today so we will check UA and culture. He does have headache today. Stomach less gas and less burning. Burning secondary to potassium and probably antibiotics.
[2018-06-11] MEDS ORDERED: Furosemide 20 MG/2 ML VIAL IVPUSH SCH (20:00)
[2018-06-11] MEDS ORDERED: traMADol 50 MG Tab PO PRN (21:01)
[2018-06-11] MEDS ORDERED: Acetaminophen 325 MG Tab PO PRN (21:03)
[2018-06-11] MEDS: Temazepam 15 MG Cap PO PRN (21:03)
[2018-06-11 21:08] VITALS: BP 196/94
[2018-06-11] MEDS ORDERED: fentaNYL 100 MCG/2 ML SDV IVPUSH ONE (22:02)
[2018-06-12] MEDS ORDERED: Fluconazole 100 MG Tab PO SCH (08:00)
[2018-06-12] MEDS ORDERED: Potassium Chloride 10 MEQ Tab.ER PO SCH (08:00)
== END 2018-06-11 22:10 | disposition other institution (70) | DRG 698 ==
LOC: LL.MS 10:15 → UNDOADMIN 10:42 → LL.MS 10:42
PROVIDERS: ADMIT Physician Assistant; ATTEND Family Medicine
PROC: 3E0234Z Introduction of Serum, Toxoid and Vaccine into Muscle, Percutaneous Approach (ICD-10-PCS; principal; 2018-06-06)
DX: T83.511A Infection and inflammatory reaction due to indwelling urethral catheter, initial encounter (principal); G82.52 Quadriplegia, C1-C4 incomplete; D69.3 Immune thrombocytopenic purpura; E87.1 Hypo-osmolality and hyponatremia; Z23 Encounter for immunization; N31.9 Neuromuscular dysfunction of bladder, unspecified; E11.9 Type 2 diabetes mellitus without complications; D64.9 Anemia, unspecified; H53.8 Other visual disturbances; B37.9 Candidiasis, unspecified; R51 Headache; L92.8 Other granulomatous disorders of the skin and subcutaneous tissue; T14.8XXS Other injury of unspecified body region, sequela; F41.9 Anxiety disorder, unspecified; B96.5 Pseudomonas (aeruginosa) (mallei) (pseudomallei) as the cause of diseases classified elsewhere; I15.9 Secondary hypertension, unspecified; F32.9 Major depressive disorder, single episode, unspecified; Z79.01 Long term (current) use of anticoagulants; Z79.84 Long term (current) use of oral hypoglycemic drugs; Z79.899 Other long term (current) drug therapy; Z86.14 Personal history of Methicillin resistant Staphylococcus aureus infection; H26.9 Unspecified cataract; L30.9 Dermatitis, unspecified; Y84.6 Urinary catheterization as the cause of abnormal reaction of the patient, or of later complication, without mention of misadventure at the time of the procedure; K27.9 Peptic ulcer, site unspecified, unspecified as acute or chronic, without hemorrhage or perforation
CPT/HCPCS: 36415; 51702; 70450; 80053; 80202; 81001; 82272; 82962; 85025; 86140; 87086; 87088; 87186; 87338; 90662; 93005; 93306; 96523; 97110-GP; 97161-GP; 97530-GP; A9270-GY; J0713; J1642; J1940; J1956; J2997; J3370; J7040; J7050

== ENCOUNTER 2018-06-11 22:15 | Emergency (ER) | payer MEDICARE, MEDICAID ==
[2018-06-11] MEDS ORDERED: Sodium Chloride 0.9% 10 ML Syringe FLUSH PRN (22:21)
[2018-06-11] MEDS ORDERED: Famotidine 20 MG/2 ML SDV IVPUSH ONE (22:21)
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
[2018-06-11] MEDS ORDERED: Labetalol 20 MG/4 ML Syringe IVPUSH ONE (22:37)
[2018-06-11 23:08] LABS: CHLORIDE,CL 96 mmol/L (98-107); SODIUM,NA 135 mmol/L (136-145)
== END 2018-06-11 23:12 ==
LOC: LL.ED 22:15
DX: S06.369A Traumatic hemorrhage of cerebrum, unspecified, with loss of consciousness of unspecified duration, initial encounter (principal); R41.0 Disorientation, unspecified; E11.40 Type 2 diabetes mellitus with diabetic neuropathy, unspecified; I11.0 Hypertensive heart disease with heart failure; I50.9 Heart failure, unspecified; F41.9 Anxiety disorder, unspecified; J43.1 Panlobular emphysema; F32.9 Major depressive disorder, single episode, unspecified; N39.0 Urinary tract infection, site not specified; D64.9 Anemia, unspecified; I15.9 Secondary hypertension, unspecified; D69.6 Thrombocytopenia, unspecified; E87.1 Hypo-osmolality and hyponatremia; I44.0 Atrioventricular block, first degree; I45.10 Unspecified right bundle-branch block; E79.0 Hyperuricemia without signs of inflammatory arthritis and tophaceous disease; E83.42 Hypomagnesemia; Z88.1 Allergy status to other antibiotic agents; Z88.8 Allergy status to other drugs, medicaments and biological substances; Z79.899 Other long term (current) drug therapy
CPT/HCPCS: 36415; 70450; 71045; 80053; 81001; 82550; 82553; 83605; 83735; 83880; 84146; 84443; 84484; 84550; 85025; 85379; 85610; 85730; 93005; 96374; 96375; 99285; J3490